=== PATIENT | female | born 1975 | race Caucasian/White ===

== ENCOUNTER 2016-08-15 17:37 | Emergency (ER) | payer BC, OTHER ==
[2016-08-15 17:51] VITALS: BP 103/69; PULSE 81; TEMP 98; BMI 22.6
--- NOTE | 2016-08-15 17:52 | PDOC ---
Rapid Medical Evaluation Chief Complaint: Allergic Reaction Time Seen by Provider: 08/15/16 17:48 Medical Evaluation: Allergies Allergy/AdvReac Type Severity Reaction Status Date / Time No Known Allergies Allergy Verified 08/15/16 17:46 08/15/16 17:48 41 yo F started taking a new med: Otezla for 4 days (psoriatic disorder) Day 1: 10mg Day 2: 10mg BID Day 3: 10mg am/20 mg pm Day 4: 20mg BID Pt noticed red rash to neck. Pt took benadryl 50mg at 0930hrs this morning. No SOB. PE: no wheezing/ CTAB
[2016-08-15] MEDS ORDERED: diphenhydrAMINE HCL 25 MG CAPSULE (FP) PO ONE ×2 (19:08→19:12)
--- NOTE | 2016-08-15 19:18 | PDOC ---
History of Present Illness - General Chief Complaint: Allergic Reaction Stated Complaint: ALLERGIC REACTION Time Seen by Provider: 08/15/16 17:48 History Source: Patient Exam Limitations: No Limitations - History of Present Illness Initial Comments: 08/15/16 19:19 Chief complaint: Pruritic rash under her chin midline to right side and slight rash to right side of face since yesterday History of present illness: Patient is a 41-year-old female with a history of psoriatic arthritis here today complaining of rash under her chin from midline towards the right side of his neck and small area on the right side of her face lower since yesterday. Patient to developing rash yesterday patient had applied Oil of Olay tinted lotion to her face and neck for the first time. Reports that she also had started on Otezla on 08/11/16 on the starter pack, this is her first time starting on this medication. Patient reports that she was on Remicade for many years prior to this. Patient also took Aleve on Monday morning had never taken Aleve before. Patient denies any difficulty breathing or swallowing. She denies any other new rash other than her psoriatic rash on her scalp and few areas on arms. Patient reports that today she took 50 mg of Benadryl at 9:30 this morning due to itchiness of rash. Patient reports that this helped. 08/15/16 19:48 Timing/Duration: getting worse (rash under chin midline to rt. side non raised pruritic , rt. lateral face rash non raised pruritic ) Severity: mild Associated Symptoms: reports: rash (rash under chin midline to rt. side non raised pruritic , rt. lateral face rash non raised pruritic ) Past History - Past Medical History Allergies/Adverse Reactions: Allergies Allergy/AdvReac Type Severity Reaction Status Date / Time No Known Allergies Allergy Verified 08/15/16 17:46 Home Medications: Ambulatory Orders Apremilast [Otezla] 30 mg PO ASDIR 08/15/16 Prednisone [Deltasone] 20 mg PO BID #8 tablet 08/15/16 Disorders: Yes (UTI) Suicide Attempt (Hx): No Other medical history: psoriasis( psoriatic arithritis) - Psycho/Social/Smoking Cessation Hx Anxiety: No Suicidal Ideation: No Smoking Status: No Smoking History: Never smoked Have you smoked in the past 12 months: No Number of Cigarettes Smoked Daily: 0 Information on smoking cessation initiated: No Hx Alcohol Use: No Drug/Substance Use Hx: No Substance Use Type: None Review of Systems - Review of Systems Able to Perform ROS?: Yes Constitutional: No: Symptoms Reported HEENTM: No: Symptoms Reported Respiratory: No: Symptoms reported Cardiac (ROS): No: Symptoms Reported ABD/GI: No: Symptoms Reported Integumentary: Yes: Pruritus, Rash (under chin midline to rt. side of neck, rt. lateral face non raised) *Physical Exam - Vital Signs Last Vital Signs Temp Pulse Resp BP Pulse Ox 98.0 F 81 18 103/69 100 08/15/16 17:46 08/15/16 17:46 08/15/16 17:46 08/15/16 17:46 08/15/16 17:46 - Physical Exam General Appearance: Yes: Appropriately Dressed HEENT: positive: Normal ENT Inspection Respiratory/Chest: positive: Lungs Clear, Normal Breath Sounds. negative: Chest Tender, Respiratory Distress Cardiovascular: positive: Regular Rhythm, Regular Rate, S1, S2 Integumentary: positive: Rash (non raised slightly erythematous rash non scaly from midline under chin to rt side of under chin, rt. lateral face). negative: Hives Neurologic: positive: Alert, Normal Response, Responsive Medical Decision Making - Medical Decision Making 08/15/16 19:48 08/15/16 19:48 Patient is a 41-year-old female with a history of psoriatic arthritis here today complaining of rash under her chin from midline towards the right side of his neck and small area on the right side of her face lower since yesterday. Patient to developing rash yesterday patient had applied Oil of Olay tinted lotion to her face and neck for the first time. Reports that she also had started on Otezla on 08/11/16 on the starter pack, this is her first time starting on this medication. Patient reports that she was on Remicade for many years prior to this. Patient also took Aleve on Monday morning had never taken Aleve before. Patient denies any difficulty breathing or swallowing. She denies any other new rash other than her psoriatic rash on her scalp and few areas on arms. Patient reports that today she took 50 mg of Benadryl at 9:30 this morning due to itchiness of rash. Patient reports that this helped. urticaria most probable due to application of Oil of Olay tinted lotion PLAN: urine HCG negative prednisone 40 mg po now then 20 mg bid for following 4 days zantac 150 mg po now than bid for following 4 days benadryl 25 mg po now than as directed by laundry presser *DC/Admit/Observation/Transfer Diagnosis at time of Disposition: Urticaria - Discharge Dispostion Disposition: HOME Condition at time of disposition: Stable - Patient Instructions Additional Instructions: Return to emergency room if any difficulty breathing or swallowing Follow-up with your primary care provider within the next few days Purchase over the counter zantac 150 mg take twice daily starting tomorrow for 4 days Take Benadryl as needed as directed by laundry presser for itchiness Patient Voiced understanding of discharge instructions and all questions were answered
[2016-08-15] MEDS ORDERED: RANITIDINE HCL 150 MG TABLET (FP) PO ONE (19:47)
[2016-08-15] MEDS ORDERED: predniSONE 20 MG TABLET (UD) PO ONE (19:47)
[2016-08-15] MEDS ORDERED: RANITIDINE HCL 150 MG TABLET (FP) ONE (19:52)
[2016-08-15] MEDS ORDERED: predniSONE 20 MG TABLET (UD) ONE (19:52)
== END 2016-08-15 19:59 | disposition home or self-care (01) ==
LOC: JERFT 17:37 → JER 17:37 → JERFT 19:59
DX: L23.2 Allergic contact dermatitis due to cosmetics (principal); L40.50 Arthropathic psoriasis, unspecified
CPT/HCPCS: 84703; 99281-25

== ENCOUNTER 2016-10-16 16:56 | Emergency (ER) | payer BC, OTHER ==
--- NOTE | 2016-10-16 17:01 | PDOC ---
History of Present Illness - General History Source: Patient Exam Limitations: No Limitations - History of Present Illness Initial Comments: 10/16/16 17:13 Patient is a 41-year-old female with a history of psoriatic arthritis, and UTIs , who presents to the ED with urination frequency, hematuria, pressure, and superpubic discomfort since today. She states she has is having similar symptoms to prior UTIs in the past. She denies back pain. She denies fever, chills, nausea, vomiting, diarrhea, constipation. <Sumanth Pearson - Last Filed: 10/16/16 17:13> <Shawn Devlin - Last Filed: 10/16/16 17:35> - General Chief Complaint: Urinary Problem Stated Complaint: URINARY SYMPTOMS Time Seen by Provider: 10/16/16 17:00 Past History <Sumanth Pearson - Last Filed: 10/16/16 17:13> - Past Medical History Disorders: Yes (UTI) Suicide Attempt (Hx): No - Psycho/Social/Smoking Cessation Hx Anxiety: No Suicidal Ideation: No Smoking Status: No Smoking History: Never smoked Have you smoked in the past 12 months: No Number of Cigarettes Smoked Daily: 0 Hx Alcohol Use: No Drug/Substance Use Hx: No Substance Use Type: None <Shawn Devlin - Last Filed: 10/16/16 17:35> - Past Medical History Allergies/Adverse Reactions: Allergies Allergy/AdvReac Type Severity Reaction Status Date / Time No Known Allergies Allergy Verified 10/16/16 16:58 Home Medications: Ambulatory Orders Apremilast [Otezla] 30 mg PO BID 08/15/16 Nitrofurantoin Monohyd/M-Cryst [Macrobid -] 100 mg PO BID #14 capsule 10/16/16 Phenazopyridine HCl [Pyridium] 200 mg PO TID #6 tablet 10/16/16 Review of Systems - Review of Systems Able to Perform ROS?: Yes Comments:: 10/16/16 17:13 GENERAL/CONSTITUTIONAL: No fever or chills. No weakness. HEAD, EYES, EARS, NOSE AND THROAT: No change in vision. No ear pain or discharge. No sore throat. CARDIOVASCULAR: No chest pain or shortness of breath. RESPIRATORY: No cough, wheezing, or hemoptysis. GASTROINTESTINAL: No nausea, vomiting, diarrhea or constipation. GENITOURINARY: + frequency, pressure, superpubic pain. MUSCULOSKELETAL: No joint or muscle swelling or pain. No neck or back pain. SKIN: No rash NEUROLOGIC: No headache, vertigo, loss of consciousness, or change in strength/ sensation. ENDOCRINE: No increased thirst. No abnormal weight change. HEMATOLOGIC/LYMPHATIC: No anemia, easy bleeding, or history of blood clots. ALLERGIC/IMMUNOLOGIC: No hives or skin allergy. <Sumanth Pearson - Last Filed: 10/16/16 17:13> *Physical Exam - Vital Signs Last Vital Signs Temp Pulse Resp BP Pulse Ox 98.8 F 78 18 103/65 100 10/16/16 16:57 10/16/16 16:57 10/16/16 16:57 10/16/16 16:57 10/16/16 16:57 - Physical Exam Comments: 10/16/16 17:14 GENERAL: Awake, alert, and fully oriented, in no acute distress HEAD: No signs of trauma EYES: PERRLA, EOMI, sclera anicteric, conjunctiva clear ENT: Auricles normal inspection, hearing grossly normal, nares patent, oropharynx clear without exudates. Moist mucosa NECK: Normal ROM, supple, no lymphadenopathy, JVD, or masses LUNGS: Breath sounds equal, clear to auscultation bilaterally. No wheezes, and no crackles HEART: Regular rate and rhythm, normal S1 and S2, no murmurs, rubs or gallops ABDOMEN: Soft, nontender, normoactive bowel sounds. No guarding, no rebound. No masses BACK: No CVA tenderness EXTREMITIES: Normal range of motion, no edema. No clubbing or cyanosis. No cords, erythema, or tenderness NEUROLOGICAL: Cranial nerves II through XII grossly intact. Normal speech, normal gait SKIN: Warm, Dry, normal turgor, no rashes or lesions noted. <Sumanth Pearson - Last Filed: 10/16/16 17:13> Progress Note - Progress Note Progress Note: It appears pt has a UTI, will place on Pyridium and Macrobid Pt is in agreement with plan Abdomen is benign on exam and vitals stable <Shawn Devlin - Last Filed: 10/16/16 17:35> *DC/Admit/Observation/Transfer - Attestations Scribe Attestion: 10/16/16 17:15 Documentation prepared by Sumanth Pearson, acting as medical record retrieval specialist for Shawn Devlin MD. <Sumanth Pearson - Last Filed: 10/16/16 17:13> - Discharge Dispostion Admit: No <Shawn Devlin - Last Filed: 10/16/16 17:35> Diagnosis at time of Disposition: Urinary tract infection Qualifiers: Urinary tract infection type: acute cystitis Hematuria presence: with hematuria Qualified Code(s): N30.01 - Acute cystitis with hematuria - Discharge Dispostion Disposition: HOME Condition at time of disposition: Stable - Patient Instructions Printed Discharge Instructions: DI for Urinary Tract Infection (UTI) Additional Instructions: Fluids, rest, Motrin Macrobid 100mg 2x/day for 7 days Pyridium 200mg 3x/day for 2 days as needed If worsen return to ER
[2016-10-16 17:09] VITALS: BP 103/65; PULSE 78; TEMP 98.8; BMI 21.7
[2016-10-16 17:24] LABS: URINE APPEARANCE HAZY; URINE BILIRUBIN Negative (NEGATIVE); URINE BLOOD 3+ (NEGATIVE); URINE COLOR PINK; URINE GLUCOSE (UA) Negative (NEGATIVE); URINE KETONE Negative (NEGATIVE); URINE LEUK ESTERASE Trace (NEGATIVE); URINE NITRITE Negative (NEGATIVE); URINE PROTEIN 2+ (NEGATIVE); URINE UROBILINOGEN 0.2 E.U/dl (0.2-1.0)
[2016-10-16 17:34] LABS: URINE RBC 20-40 /hpf (0-3)
[2016-10-16 17:35] LABS: URINE BACTERIA FEW /hpf (NEGATIVE)
[2016-10-16] MEDS ORDERED: PHENAZOPYRIDINE HCL 100 MG TABLET (FP) PO ONE (17:40)
[2016-10-16] MEDS ORDERED: NITROFURANTOIN MACROCRYSTAL 50 MG CAPSULE (FP) ONE (17:42)
[2016-10-16] MEDS ORDERED: PHENAZOPYRIDINE HCL 100 MG TABLET (FP) ONE (17:42)
[2016-10-16] MEDS ORDERED: NITROFURANTOIN MACROCRYSTAL 50 MG CAPSULE (FP) PO SCH (17:45)
== END 2016-10-16 17:45 | disposition home or self-care (01) ==
LOC: FER 16:56
DX: N30.11 Interstitial cystitis (chronic) with hematuria (principal); Z87.440 Personal history of urinary (tract) infections; L40.50 Arthropathic psoriasis, unspecified
CPT/HCPCS: 81003; 81015; 84703; 99282-25

== ENCOUNTER 2016-10-19 19:35 | Emergency (ER) | payer BC, OTHER ==
--- NOTE | 2016-10-19 19:43 | PDOC ---
[id number] is a 41 year old female (LMP: September 30) with a PMHx of recurrent UTIs who presents to the ED with urinary frequency and suprapubic pain today. The patient presented to the ED last week for the same symptoms and she was discharged with Macrobid for a UTI. She reports that the urgency and pain came back today. She reports associated minimal hematuria. She has been worked up by urologist and MEDICAL BILLING CODER in the past to figure out why she has recurrent UTIs, but everything was normal. She normally takes Cipro for her UTIs. She denies dysuria , fever, chills, nausea, vomiting, diarrhea. Denies FHx of kidney stones, gall stones. PAST MEDICAL HISTORY: recurrent UTIs PAST SURGICAL HISTORY: no significant history FAMILY HISTORY: no pertinent history SOCIAL HISTORY: Pt lives with family and is employed. MEDICATIONS: reviewed ALLERGIES: As per nursing notes Review of Systems: General: No fevers or chills, no weakness, no weight loss HEENT: No change in vision. No sore throat,. No ear pain CardioVascular: No chest pain or shortness of breath Respiratory: No cough, or wheezing. Gastrointestinal: no nausea, vomiting, diarrhea or constipation, No rectal bleeding Genitourinary: (+) urgency, suprapubic pain, hematuria. No dysuria or frequency Musculoskeletal: No joint or muscle pain or swelling Neurologic: No headache, vertigo, dizziness or loss of consciousness Psychiatric: No depression Skin: No rashes or easy bruising Endocrine: No increased thirst or abnormal weight change Allergic: No skin or latex allergy All other systems reviewed and normal BASIC EXAM: GENERAL: The patient is awake, alert, and fully oriented, in no acute distress. HEAD: Normal with no signs of trauma. EYES: Pupils equal, round and reactive to light, extraocular movements intact, sclera anicteric, conjunctiva clear. EXTREMITIES: Normal range of motion, no edema. NEUROLOGICAL: Normal speech, normal gait. PSYCH: Normal mood, normal affect. SKIN: Warm, Dry, normal turgor, no rashes or lesions noted. : mild suprapubic pain on palpation <Emily Brady - Last Filed: 10/19/16 21:11> - History of Present Illness Initial Comments: 10/19/16 19:44 Chief complaint: Dysuria History of present illness: Patient treated here on October 16 for presumed UTI with red cells and white cells in the urine. No urine culture was obtained. Macrodantin and Pyridium were prescribed. The patient improved while on the medication, finished the medication today, and her symptoms have recurred. She has dysuria and her urine is pink to reddish in color. No fever or chills. No back pain. On exam: No fever, no CVA tenderness, mild tenderness over the bladder without guarding or rebound. Urinalysis and urine culture. Further treatment depending on results. <Pedro Birmingham - Last Filed: 10/28/16 10:27> - General Chief Complaint: Urinary Problem Stated Complaint: CHRONIC UTI Time Seen by Provider: 10/19/16 19:41 Past History <Emily Brady - Last Filed: 10/19/16 21:11> - Past Medical History Disorders: Yes (UTI) Suicide Attempt (Hx): No - Psycho/Social/Smoking Cessation Hx Anxiety: No Suicidal Ideation: No Smoking Status: No Smoking History: Never smoked Have you smoked in the past 12 months: No Number of Cigarettes Smoked Daily: 0 Hx Alcohol Use: No Drug/Substance Use Hx: No Substance Use Type: None <Pedro Birmingham - Last Filed: 10/28/16 10:27> - Past Medical History Allergies/Adverse Reactions: Allergies Allergy/AdvReac Type Severity Reaction Status Date / Time No Known Allergies Allergy Verified 10/16/16 16:58 Home Medications: Ambulatory Orders Apremilast [Otezla] 30 mg PO BID 08/15/16 Nitrofurantoin Monohyd/M-Cryst [Macrobid -] 100 mg PO BID #14 capsule 10/16/16 Phenazopyridine HCl [Pyridium] 200 mg PO TID #6 tablet 10/16/16 Phenazopyridine HCl [Pyridium -] 100 mg PO ONCE #21 tablet 10/19/16 *Physical Exam - Vital Signs Last Vital Signs Temp Pulse Resp BP Pulse Ox 98.2 F 84 14 98/67 100 10/19/16 19:37 10/19/16 19:37 10/19/16 19:37 10/19/16 19:37 10/19/16 19:37 <Emily Brady - Last Filed: 10/19/16 21:11> ED Treatment Course - ADDITIONAL ORDERS Additional order review: Laboratory Results 10/19/16 19:43 Urine Color Yellow Urine Appearance Clear Urine pH 7.0 Ur Specific [place] <= 1.005 Urine Protein Negative Urine Glucose (UA) Negative Urine Ketones Negative Urine Blood 3+ H Urine Nitrite Negative Urine Bilirubin Negative Urine Urobilinogen 0.2 e.u/dl Ur Leukocyte Esterase Negative Urine RBC 2-5 Urine WBC 0-2 Ur Epithelial Cells Few Urine Bacteria Few <Emily Brady - Last Filed: 10/19/16 21:11> Progress Note - Progress Note Progress Note: Patient treated for UTI symptoms, finished a course of Macrodantin, symptoms persist. Urinalysis shows no sign of infection. Culture less than 10,000 colonies. The patient's symptoms are likely due to vaginitis. She is referred to her [facility] [employer] physician for further evaluation and treatment. In no distress, with no fever or back pain upon discharged to follow-up as directed <Pedro Birmingham - Last Filed: 10/28/16 10:27> *DC/Admit/Observation/Transfer - Attestations Scribe Attestion: 10/19/16 21:11 Documentation prepared by Emily Brady, acting as medical supply technician for Ale Mendieta MD. <Emily Brady - Last Filed: 10/19/16 21:11> <Pedro Birmingham - Last Filed: 10/28/16 10:27> Diagnosis at time of Disposition: Dysuria - Discharge Dispostion Disposition: HOME Condition at time of disposition: Good - Prescriptions Prescriptions: Phenazopyridine HCl [Pyridium -] 100 mg PO ONCE #21 tablet - Referrals Referrals: Jj Francisco MD [Primary Care Provider] - - Patient Instructions Additional Instructions: You can continue the Pyridium 1 tablet as often as 3 times a day if needed for the discomfort. Follow-up with your primary care doctor or a urologist this week or early next week. Return to the emergency department immediately with ANY new, persistent or worsening symptoms. Continue any medications as previously prescribed by your physician. You should follow up with your primary doctor as soon as possible regarding today's emergency department visit. . Please make sure your doctor reviews the results of your emergency evaluation. Thank you for coming to the Emergency Department today for your care. It was a pleasure to see you today. Please note that your evaluation is INCOMPLETE until you follow-up with your doctor.
[2016-10-19 19:47] VITALS: BP 98/67; PULSE 84; TEMP 98.2; BMI 21.6
[2016-10-19 19:53] LABS: URINE APPEARANCE Clear; URINE BILIRUBIN Negative (NEGATIVE); URINE GLUCOSE (UA) Negative (NEGATIVE); URINE KETONE Negative (NEGATIVE); URINE LEUK ESTERASE Negative (NEGATIVE); URINE NITRITE Negative (NEGATIVE); URINE PROTEIN Negative (NEGATIVE); URINE UROBILINOGEN 0.2 E.U/dl (0.2-1.0)
[2016-10-19 19:55] LABS: URINE BLOOD 3+ (NEGATIVE); URINE COLOR YELLOW
[2016-10-19 20:09] LABS: URINE BACTERIA FEW /hpf (NEGATIVE); URINE WBC 0-2 (3-5)
--- NOTE | 2016-10-19 21:27 | PDOC ---
*Physical Exam - Vital Signs Last Vital Signs Temp Pulse Resp BP Pulse Ox 98.2 F 84 14 98/67 100 10/19/16 19:37 10/19/16 19:37 10/19/16 19:37 10/19/16 19:37 10/19/16 19:37 ED Treatment Course - ADDITIONAL ORDERS Additional order review: Laboratory Results 10/19/16 19:43 Urine Color Yellow Urine Appearance Clear Urine pH 7.0 Ur Specific [place] <= 1.005 Urine Protein Negative Urine Glucose (UA) Negative Urine Ketones Negative Urine Blood 3+ H Urine Nitrite Negative Urine Bilirubin Negative Urine Urobilinogen 0.2 e.u/dl Ur Leukocyte Esterase Negative Urine RBC 2-5 Urine WBC 0-2 Ur Epithelial Cells Few Urine Bacteria Few - RADIOLOGY Radiology Studies Ordered: Category Date Time Status KIDNEY / RENAL US [US] Stat Ultrasound 10/19/16 20:15 Ordered Progress Note - Progress Note Progress Note: Care of this patient was signed out to me from Dr. Taveras at 8 PM. Patient is a 41-year-old female who comes in complaining of discomfort with urination. Patient was recently treated for urinary tract infection with Macrobid and postop in the Macrobid her symptoms have returned. Patient was noted to have some blood in her urine here in the emergency room however there was no white cells or bacteria seen. Patient also had an ultrasound done of the kidneys she and bladder that was negative for any hydronephrosis or bladder pathology. Patient was given a copy of her blood work Patient was instructed to follow up with her primary care doctor or a urologist if symptoms persisted and in the meantime she can take Pyridium for the discomfort. *DC/Admit/Observation/Transfer Diagnosis at time of Disposition: Dysuria - Discharge Dispostion Disposition: HOME Condition at time of disposition: Good Admit: No - Referrals Referrals: Jj Francisco MD [Primary Care Provider] - - Patient Instructions Additional Instructions: You can continue the Pyridium 1 tablet as often as 3 times a day if needed for the discomfort. Follow-up with your primary care doctor or a urologist this week or early next week. Return to the emergency department immediately with ANY new, persistent or worsening symptoms. Continue any medications as previously prescribed by your physician. You should follow up with your primary doctor as soon as possible regarding today's emergency department visit. . Please make sure your doctor reviews the results of your emergency evaluation. Thank you for coming to the Emergency Department today for your care. It was a pleasure to see you today. Please note that your evaluation is INCOMPLETE until you follow-up with your doctor. - Post Discharge Activity
[2016-10-19] MEDS ORDERED: PHENAZOPYRIDINE HCL 100 MG TABLET (FP) ONE (21:45)
[2016-10-19] MEDS ORDERED: PHENAZOPYRIDINE HCL 100 MG TABLET (FP) PO ONE (21:48)
== END 2016-10-19 21:36 | disposition home or self-care (01) ==
LOC: FER 19:35
DX: R30.0 Dysuria (principal); Z87.440 Personal history of urinary (tract) infections
CPT/HCPCS: 76775-TC; 81003; 81015; 87086; 99283-25

== ENCOUNTER → 2017-01-02 | Day surgery (SDC) | payer BC, OTHER ==
--- NOTE | 2017-01-04 11:34 | PATH ---
Surgical Pathology Report Patient Name: KELVIN VARGAS [facility]. Rec. #: [id number] /Age/Gender: 1975 (Age: 41) / F Account: [id number] Location: Taken: 01/02/2017 Received: 01/02/2017 Reported: 01/04/2017 Physicians: Irlanda Prado M.D. Heriberot Sweeney M.D. Specimen(s) Received LEFT BREAST CORE BIOPSY 200 5 CM+N Clinical History Ultrasound findings: Highly suspicious/malignant 1.7 cm mass left breast Final Diagnosis BREAST, LEFT, 2:00, 5 CM F., CORE BIOPSY: INVASIVE DUCTAL CARCINOMA, POORLY DIFFERENTIATED WITH PROMINENT ASSOCIATED LYMPHOCYTIC INFILTRATE (TUMOR-INFILTRATING LYMPHOCYTES : > 60%). THE CARCINOMA MEASURES 6 MM IN GREATEST DIMENSION THIS MATERIAL. Results of ER, MI, Her-2, Ki67 studies will be reported separately in an addendum. Electronically Signed Renea Dewey M.D. Addendum Reported: 01/05/2017 Addendum Diagnosis Results of ER and MI studies performed at [facility] are as follows: ER (clone [id number] mouse monoclonal antibody by [employer]): > 90 % nuclear staining with strong intensity (Positive). MI (clone16 mouse monoclonal antibody by [employer]) : > 90 % nuclear staining with strong intensity (Positive). Results of Her2 (IHC) & Ki-67 studies performed at [place], [place] ([id number]) are as follows: Her2 IHC (EP3 from [employer], formerly known as [id number], using [employer] Polymer Refine detection kit): 0 (Negative). Ki-67: ~70% (High proliferative index). Positive and negative controls (internal if applicable) show appropriate results. Formalin fixation and cold ischemic times are within current ASCO/CAP recommendations for ER, MI and Her2 testing. Renea Dewey M.D. Gross Description Received in formalin labeled "left breast biopsy 2:00, 5 cmfn," are 8 coto-yellow, cylindrical portions of fibroadipose tissue ranging from 0.3-1.0 cm in length and averaging 0.1 cm in diameter. The specimens are submitted in toto in one cassette. Time to formalin fixation: 2 minutes Total formalin fixation time: Approximately 27 hours. DL/01/03/2017 [facility]/01/03/2017
== END | disposition home or self-care (01) ==
LOC: FRADUS-SUR 13:23
PROVIDERS: ATTEND Surgery
PROC: 0HBU3ZX Excision of Left Breast, Percutaneous Approach, Diagnostic (ICD-10-PCS; principal; 2017-01-02)
DX: C50.412 Malignant neoplasm of upper-outer quadrant of left female breast (principal); N63 Unspecified lump in breast
CPT/HCPCS: 19083; 87899; 88305-TC; 88342-TC; A4648; G0206-TC

== ENCOUNTER 2017-02-02 08:05 | Day surgery (SDC) | payer BC, OTHER ==
--- NOTE | 2017-01-24 09:51 | HP ---
Admitting History and Physical - Primary Care Physician PCP: Jimbo Santiago - Admission Chief Complaint: Left breast cancer History of Present Illness: 42 year old premenapausal female who felt a lump in her left breast upper outer quadrant on self exam 12/2016. mammogram showed spiculated 1.5 cm mass and US showed 2:00 5 cm N 1.2x1.1x1.6 cm mass. There was also a 3.4 mm right breast mass at 10:00 6 month follow up advised. US core bx left breast 2: 00 invasive ductal carcinoma. MRI showed localized left breast cancer without suspicious adenopathy. History Source: Patient Limitations to Obtaining History: No Limitations - Smoking History Smoking history: Never smoked Have you smoked in the past 12 months: No Aproximately how many cigarettes per day: 0 - Alcohol/Substance Use Hx Alcohol Use: No Home Medications - Allergies Allergies/Adverse Reactions: Allergies Allergy/AdvReac Type Severity Reaction Status Date / Time No Known Allergies Allergy Verified 10/16/16 16:58 - Home Medications Home Medications: Ambulatory Orders Apremilast [Otezla] 30 mg PO BID 08/15/16 Nitrofurantoin Monohyd/M-Cryst [Macrobid -] 100 mg PO BID #14 capsule 10/16/16 Phenazopyridine HCl [Pyridium] 200 mg PO TID #6 tablet 10/16/16 Phenazopyridine HCl [Pyridium -] 100 mg PO ONCE #21 tablet 10/19/16
--- NOTE | 2017-01-24 11:06 | HP ---
Admitting History and Physical - Primary Care Physician PCP: Jimbo Santiago - Admission Chief Complaint: Left breast cancer History of Present Illness: 42 year old premenapausal female who noted left breast mass upper outer quadrant 11/2016. Mammogram 12/2016 showed irregular spiculated mass left upper outer quadrant 1.5 cm. US showed 2:00 left breast mass 1.2x1.1x1.6cm there was also a right breast mass 3.4 mm that radiologist advised 6 month follow up. 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 Breast MRI showed left breast localized cancer no mutifocal or contralateral disease. History Source: Patient Limitations to Obtaining History: No Limitations - Past Medical History Musculoskeletal: Yes: Osteoarthritis Dermatology: Yes: Psoriasis (arthritis) - Smoking History Smoking history: Never smoked Have you smoked in the past 12 months: No Aproximately how many cigarettes per day: 0 - Alcohol/Substance Use Hx Alcohol Use: No Home Medications - Allergies Allergies/Adverse Reactions: Allergies Allergy/AdvReac Type Severity Reaction Status Date / Time No Known Allergies Allergy Verified 10/16/16 16:58 - Home Medications Home Medications: Ambulatory Orders Apremilast [Otezla] 30 mg PO BID 08/15/16 Nitrofurantoin Monohyd/M-Cryst [Macrobid -] 100 mg PO BID #14 capsule 10/16/16 Phenazopyridine HCl [Pyridium] 200 mg PO TID #6 tablet 10/16/16 Phenazopyridine HCl [Pyridium -] 100 mg PO ONCE #21 tablet 10/19/16 Family Disease History - Family Disease History Family Disease History: CA: Grandparent (breast ca 50's?), Mother (breast ca 50) Physical Examination Constitutional: Yes: Well Nourished, No Distress Breast(s): Yes: Other ( ptotic B cups with noskin changes on palpation she has some thickening towards upper outer quadrant left breast. right breast negative no palpable adnopathy bilaterallty) Problem List - Problems (1) Breast cancer, left Code(s): C50.912 - MALIGNANT NEOPLASM OF UNSPECIFIED SITE OF LEFT FEMALE BREAST Qualifiers: Breast location: upper outer quadrant of breast Patient sex: female Assessment/Plan Left breast wide excision, mammogram needle localization ,lymphoscintogram, sentenel node biopsy, posssible axillary node dissection
[2017-01-31 14:08] VITALS: BMI 20.5
[2017-02-02] MEDS ORDERED: MIDAZOLAM HCL 2 MG/2 ML SINGLE DOSE VIAL ONE ×2 (13:09→13:40)
[2017-02-02] MEDS ORDERED: LIDOCAINE 1%/EPI 1:100000 (20 ML MULTI DOSE VIAL) ONE (13:15)
[2017-02-02] MEDS ORDERED: ISOSULFAN BLUE 10 MG/ML VIAL SQ ONE (13:15)
[2017-02-02] MEDS ORDERED: ONDANSETRON 4 MG/2 ML VIAL IVPB PRN (13:17)
[2017-02-02] MEDS ORDERED: KETOROLAC TROMETHAMINE 30 MG/1 ML VIAL IVPUSH PRN (13:17)
[2017-02-02] MEDS ORDERED: LIDOCAINE HCL 1%, 10 MG/ML (20ML VIAL) ONE (13:19)
[2017-02-02] MEDS ORDERED: DEXTROSE 5%-0.45% SALINE 1,000 ML IV SCH (13:30)
[2017-02-02] MEDS ORDERED: ceFAZolin SODIUM 1 GM VIAL ONE (13:42)
[2017-02-02] MEDS ORDERED: BUPIVACAINE HCL/PF 2.5 MG/ML - 30 ML VIAL IJ ONE (13:49)
[2017-02-02] MEDS ORDERED: LIDOCAINE HCL 1%, 10 MG/ML (50 mL VIAL) IJ ONE (13:57)
[2017-02-02] MEDS ORDERED: PROPOFOL 20 ML ONE ×2 (14:07)
[2017-02-02] MEDS ORDERED: BUPIVACAINE HCL/PF 0.25% (2.5MG/ML) 10 ML VIAL IJ ONE (14:57)
--- NOTE | 2017-02-02 16:48 | OP ---
DATE OF OPERATION: 02/02/2017 PREOPERATIVE DIAGNOSIS: Left breast cancer, upper outer quadrant. POSTOPERATIVE DIAGNOSIS: Left breast cancer, upper outer quadrant. PROCEDURE: Left breast partial mastectomy with mammographic needle localization and left axillary sentinel lymph node biopsy with partial tissue transfer closure 3 x 4 cm. PRIMARY SURGEON: Jimbo Santiago MD DATA COMMUNICATIONS ENGINEER: CAITLIN Ruiz COMPLICATIONS: None. ANESTHESIA: Local with IV sedation. Briefly, the patient is a 42-year-old, G2, P2, premenopausal female of descent. She noted a left breast mass in the upper outer quadrant and underwent mammography and ultrasound showing a 1.5-cm spiculated mass on mammography and a 1.2 x 1.6 cm mass on ultrasound in the 2 o'clock region 5 cm from the nipple. Core biopsy showed a poorly-differentiated invasive duct cancer which was ER/MS positive, HER2/shelly negative with a Ki-67 of 70%. An MRI showed localized cancer measuring 1.3 cm. The patient was advised at undergoing a wide excision with needle localization and sentinel lymph node biopsy. The patient was brought in for the procedure on February 02, 2017, and underwent mammographic needle localization at [facility] with a lymphoscintigraphy and then was brought to the [place] [facility]. In the holding area, site verification was made, and informed consent was obtained. DESCRIPTION OF PROCEDURE: She was brought into the operating room and laid on the OR table in the supine position. Venodynes were placed on the lower extremities. She received a gram of Ancef prior to incision. 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 The left breast was sterilely prepped and draped in the usual fashion with the wire prepped in the field. Next, 3 mL of Lymphazurin blue were injected intradermally peritumorally around the needle localization site. An incision was made just below the hair-bearing area of the left axilla. Dissection was undertaken, and a blue lymphatic was easily seen, coursing to a blue, hot lymph node. The node was removed, and 10-second gamma count was around 75,000. The node was sent to Pathology for permanent section in formalin. There were no other blue or hot nodes, and background count was about 1600 after removal of this node. Hemostasis was achieved, and the axillary wound was closed using interrupted 2-0 plain suture, then interrupted 3-0 deep dermal Vicryl suture and a running 4-0 subcuticular Biosyn suture. At this point, the wide excision was undertaken in the upper outer aspect of the left breast. Incision was made, and dissection was undertaken around the needle localization site. The specimen was completely removed from around the surrounding tissue, all the way down to the pectoralis major muscle. Specimen was oriented with a long lateral/short superior suture, and specimen radiographs showed removal of the clip in question. Hemostasis was achieved. Separate margins were then taken on the superior, inferior, medial, lateral, deep, and anterior margins with a suture marking the biopsy cavity side. All specimens were placed in formalin and sent to Pathology as specimen. At this point, hemostasis was achieved, and a 4 x 3 cm tissue transfer closure was accomplished by undermining the breast tissue and reapproximating the tissue with 2-0 plain suture. The skin was then closed using interrupted 3-0 deep dermal Vicryl suture and a running 4-0 subcuticular Biosyn suture. Mastisol and Steri-Strips were applied over the wound with a compressive dressing placed over this. She was placed in a surgical bra postoperatively. Patient was awake and alert at the end of the procedure and brought back to Ambulatory Surgery postoperatively. The patient will be discharged home the same day once discharge criteria are met. All sponge and needle counts were correct at the need of the case, and estimated blood loss was about 20 mL. The patient will follow up in the office in 1 week for a formal wound and pathology check. Gus [id number]
[2017-02-02 17:48] VITALS: BP 106/56; PULSE 71; TEMP 97.9
--- NOTE | 2017-02-10 10:07 | PATH ---
Surgical Pathology Report Patient Name: KELVIN VARGAS [facility]. Rec. #: [id number] /Age/Gender: 1975 (Age: 42) / F Account: [id number] Location: [facility] Taken: 02/02/2017 Received: 02/02/2017 Reported: 02/10/2017 Physicians: Jimbo Santiago M.D. Specimen(s) Received A: LEFT AXILLARY SENTINEL LYMPH NODE #1 B: LEFT BREAST WIDE EXCISION C: LEFT BREAST LATERAL MARGIN D: LEFT BREAST INFERIOR MARGIN E: LEFT BREAST MEDIAL MARGIN F: LEFT BREAST SUPERIOR MARGIN G: LEFT BREAST DEEP MARGIN H: LEFT BREAST ANTERIOR MARGIN Clinical History Left upper outer quadrant invasive cancer Final Diagnosis A. LYMPH NODE, LEFT AXILLARY SENTINEL #1, EXCISION: ONE LYMPH NODE, NEGATIVE FOR METASTATIC CARCINOMA (0/1). B. BREAST, LEFT, WIDE EXCISION: INVASIVE DUCTAL CARCINOMA, POORLY DIFFERENTIATED (TUBULE SCORE: 3/3, NUCLEAR GRADE: 3/3, MITOTIC SCORE: 3/3; TOTAL RAFAEL SCORE: 9/9), WITH PROMINENT ASSOCIATED LYMPHOCYTIC INFILTRATE (> 60%). DUCTAL CARCINOMA IN SITU (DCIS), SOLID TYPE, HIGH NUCLEAR GRADE, PRESENT ADMIXED WITH INVASIVE CARCINOMA AND FOCALLY AWAY FROM IT. INVASIVE CARCINOMA EXTENDS TO THE ANTERIOR MARGIN AND IS AT 1.5 MM FROM THE INFERIOR MARGIN; DCIS IS CLOSE TO (< 1MM) THE ANTERIOR MARGIN. SEE SPECIMENS C-H FOR FINAL MARGINS. NO LYMPHOVASCULAR INVASION IS IDENTIFIED. PRIOR BIOPSY SITE CHANGES ARE PRESENT. PATHOLOGIC STAGE (pTNM): pT1c pN0. SEE ALSO INVASIVE CARCINOMA CASE SUMMARY BELOW. C. BREAST, LEFT, LATERAL MARGIN, EXCISION: DCIS, HIGH NUCLEAR GRADE, PRESENT AT 1 MM FROM THE CLOSEST NEW MARGIN. (SEE NOTE) Myoepithelial immunohistochemical markers (SMM-HC & p63, performed at [facility]) demonstrate the presence of myoepithelial cells in the foci of DCIS with crush artifact. This finding supports the diagnosis. D. BREAST, LEFT, INFERIOR MARGIN, EXCISION: BENIGN BREAST TISSUE. E. BREAST, LEFT, MEDIAL MARGIN, EXCISION: BENIGN BREAST TISSUE. F. BREAST, LEFT, SUPERIOR MARGIN, EXCISION: BENIGN BREAST TISSUE. G. BREAST, LEFT, DEEP MARGIN, EXCISION: BENIGN BREAST TISSUE. H. BREAST, LEFT, ANTERIOR MARGIN, EXCISION: DCIS, HIGH NUCLEAR GRADE, PRESENT AT 2 MM FROM THE CLOSEST NEW MARGIN. Comments Breast Invasive Carcinoma: Surgical Pathology Cancer Case Summary Based on AJCC/UICC TNM, 7th edition Procedure _X_ Excision with image-guided localization Lymph Node Sampling _X_ Flora lymph node(s) Specimen LateralityRight _X_ Left Tumor Size: Size of Largest Invasive Carcinoma: 1.4 cm Tumor Focality _X_ Single focus of invasive carcinoma Macroscopic and Microscopic Extent of Tumor Nipple _X_ Not applicable (excisions less than total mastectomy) Ductal Carcinoma In Situ (DCIS) _X_ DCIS is present _X_ as a minor component (< 25% of tumor) Histologic Type of Invasive Carcinoma : _X_ Invasive carcinoma of no special type (ductal, not otherwise specified) with prominent associated lymphocytic infiltrate Histologic Grade: (Rafael Histologic Score) Tubular Differentiation _X_ Score 3 Nuclear Pleomorphism _X_ Score 3 Mitotic Rate _X_ Score 3 Overall Grade _X_ Grade 3: scores of 8 or 9 (poorly differentiated) Margins _X_ Margins uninvolved by invasive carcinoma Distance from closest margin: invasive carcinoma extends to the anterior margin in wide excision B. Final anterior margin H is negative for invasive carcinoma. _X_ Margins uninvolved by DCIS Distance from closest margin: 1 mm from final lateral margin C. Lymph-Vascular Invasion _X_ Not identified Lymph Nodes Total number of lymph nodes examined (sentinel and nonsentinel): 1 Number of sentinel lymph nodes examined: 1 Number of lymph nodes with macrometastases ( > 2 mm): 0 Number of lymph nodes with micrometastases (>0.2 mm to 2 mm and/or >200cells):0 Number of lymph nodes with isolated tumor cells (=0.2 mm and =200 cells): 0 Extranodal Extension _X_ Not applicable Pathologic Staging (pTNM) Primary Tumor (Invasive Carcinoma): pT1c Regional Lymph Nodes (pN): pN0(sn) Biomarker Studies Results of ER and WI studies performed on prior biopsy ( ) at [facility] are as follows: ER (clone [id number] mouse monoclonal antibody by [employer]): > 90 % nuclear staining with strong intensity (Positive). WI (clone16 mouse monoclonal antibody by [employer]) : > 90 % nuclear staining with strong intensity (Positive). Results of Her2 (IHC) & Ki-67 studies performed on prior biopsy ( [id number]) at [place], [place] ( [id number] ) are as follows: Her2 IHC (EP3 from [employer], formerly known as [id number], using [employer] Polymer Refine detection kit): 0 (Negative). Ki67: ~70% (High). Electronically Signed Renea Dewey M.D. Gross Description A. Received in formalin labeled "left axillary sentinel lymph node #1," is a 1.4 x 1.3 x 0.8 cm coto-blue, irregular lymph node. The specimen is trisected and entirely submitted in one cassette. B. Received in formalin, labeled "left breast wide excision," is a 4.9 x 4.2 x 2.6 cm. coto-yellow, irregular, portion of fibroadipose tissue with a needle localization wire present. There is a short suture marking the superior aspect and a long suture marking the lateral aspect, per the surgeon. There is no skin present. The specimen is inked as follows: superior and lateral blue; inferior green; medial yellow; anterior red; deep black. The specimen is serially sectioned from medial to lateral. Sectioning reveals a 1.4 x 1.0 x 0.8 cm coto, firm, ill-defined mass abutting the anterior margin. The mass is at 0.6 cm from the inferior margin. The remaining margins appear clear of the mass. Economics Professor sections are submitted in 7 cassettes as follows: 1-full-face section of mass with anterior and deep margins; [id number] sections of mass with anterior and deep margins; 4-inferior margin; 5-superior margin; 6-medial margin; 7-lateral margin. Time to formalin fixation: 24 minutes Total formalin fixation time: Approximately 27 hours. C. Received in formalin labeled "left breast lateral margin," is a 2.7 x 1.9 x 0.7 cm irregular portion of fibroadipose tissue with a suture marking the biopsy cavity side, per the surgeon. The new margin is inked green and the specimen is serially sectioned. The specimen is entirely submitted in 3 cassettes. D. Received in formalin labeled "left breast inferior margin," is a 2.2 x 1.8 x 0.5 cm irregular portion of fibroadipose tissue with a suture marking the biopsy cavity side, per the surgeon. The new margin is inked green and the specimen is serially sectioned. The specimen is entirely submitted in 2 cassettes. E. Received in formalin labeled "left breast medial margin," is a 1.4 x 1.3 x 0.4 cm irregular portion of fibroadipose tissue with a suture marking the biopsy cavity side, per the surgeon. The margin is inked green and the specimen is serially sectioned. The specimen is entirely submitted in one cassette. F. Received in formalin labeled "left breast superior margin," is a 2.3 x 2.0 x 0.8 cm irregular portion of fibroadipose tissue with a suture marking the biopsy cavity side, per the surgeon. The new margin is inked in green and the specimen is serially sectioned. The specimen is entirely submitted in 3 cassettes. G. Received in formalin labeled "left breast deep margin," is a 2.5 x 1.6 x 0.9 cm irregular portion of fibroadipose tissue with a suture marking the biopsy cavity side, per the surgeon. The new margin is inked green and the specimen is serially sectioned. The specimen is entirely submitted in 2 cassettes. H. Received in formalin labeled "left breast anterior margin," is a 1.8 x 1.7 x 0.5 cm irregular portion of fibroadipose tissue with a suture marking the biopsy cavity side, per the surgeon. The new margin is inked green and the specimen is serially sectioned. The specimen is entirely submitted in 2 cassettes. 02/03/2017 [facility]02/03/2017
== END 2017-02-02 17:40 | disposition home or self-care (01) ==
LOC: FASU 08:05
PROVIDERS: ATTEND Surgery Surgical Oncology
PROC: 0JX60ZC Transfer Chest Subcutaneous Tissue and Fascia with Skin, Subcutaneous Tissue and Fascia, Open Approach (ICD-10-PCS; 2017-02-02)
PROC: 0HBU0ZZ Excision of Left Breast, Open Approach (ICD-10-PCS; principal; 2017-02-02 13:31)
PROC: 07B60ZX Excision of Left Axillary Lymphatic, Open Approach, Diagnostic (ICD-10-PCS; 2017-02-02 13:31)
DX: C50.412 Malignant neoplasm of upper-outer quadrant of left female breast (principal)
CPT/HCPCS: 19281; 78195-TC; 84703; 88307-TC; 88341-TC; 88342-TC; A9541

== ENCOUNTER 2017-02-16 10:46 | Day surgery (SDC) | payer BC, OTHER ==
--- NOTE | 2017-02-15 10:41 | HP ---
Admitting History and Physical - Primary Care Physician PCP: Jimbo Santiago - Admission Chief Complaint: left breast cancer History of Present Illness: 42 yo females s/p left breast WE with snbx (invasive ductal, negative node 2016), was noted to have a positive lateral margin on final path. Patient is now to undergo reexcision of lateral margin. History Source: Patient Limitations to Obtaining History: No Limitations - Past Medical History ...LMP: 01/10/17 Musculoskeletal: Yes: Osteoarthritis Dermatology: Yes: Psoriasis (arthritis) - Past Surgical History Additional Past Surgical History: left breast WE with snbx (02/02/2017) - Smoking History Smoking history: Never smoked Have you smoked in the past 12 months: No Aproximately how many cigarettes per day: 0 - Alcohol/Substance Use Hx Alcohol Use: No Home Medications - Allergies Allergies/Adverse Reactions: Allergies Allergy/AdvReac Type Severity Reaction Status Date / Time No Known Allergies Allergy Verified 01/31/17 14:01 - Home Medications Home Medications: Ambulatory Orders Oxycodone HCl/Acetaminophen [Percocet 5-325 mg Tablet] 1 - 2 tab PO Q6H PRN #30 tab MDD 6 02/02/17 Family Disease History - Family Disease History Family Disease History: CA: Grandparent (breast ca 50's?), Mother (breast ca 50) Review of Systems - Review of Systems Constitutional: reports: No Symptoms Cardiovascular: reports: No Symptoms Respiratory: reports: No Symptoms Physical Examination Constitutional: Yes: Well Nourished Breast(s): Yes: Other (Left breast well healed incision without erythema or discharge noted.) Problem List - Problems (1) Breast cancer, left Code(s): C50.912 - MALIGNANT NEOPLASM OF UNSPECIFIED SITE OF LEFT FEMALE BREAST Assessment/Plan Plan: Reexcision of left breast positive margin
[2017-02-15 11:02] VITALS: BMI 20.5
[2017-02-16] MEDS ORDERED: oxyCODONE HCL 10 MG SUSTAINED ACTING TABLET PO ONE (11:00)
[2017-02-16] MEDS ORDERED: LIDOCAINE HCL 1%, 10 MG/ML (20ML VIAL) ONE (13:01)
[2017-02-16] MEDS ORDERED: oxyCODONE HCL 5 MG TABLET PO PRN ×2 (13:34)
[2017-02-16] MEDS ORDERED: ONDANSETRON 4 MG/2 ML VIAL IVPUSH PRN (13:34)
[2017-02-16] MEDS ORDERED: LACTATED RINGERS SOLUTION 1,000 ML IV SCH (13:45)
[2017-02-16] MEDS ORDERED: KETOROLAC TROMETHAMINE 30 MG/1 ML VIAL IVPUSH PRN (14:27)
[2017-02-16] MEDS ORDERED: ONDANSETRON 4 MG/2 ML VIAL IVPB PRN (14:27)
[2017-02-16] MEDS ORDERED: DEXTROSE 5%-0.45% SALINE 1,000 ML IV SCH (14:30)
--- NOTE | 2017-02-16 14:46 | OP ---
DATE OF OPERATION: 02/16/2017 PREOPERATIVE DIAGNOSIS: Left breast cancer upper outer quadrant. POSTOPERATIVE DIAGNOSIS: Left breast cancer upper outer quadrant. PROCEDURE: Left breast reexcision for margins. ANESTHESIA: Local with intravenous sedation. SURGEON: Dewayne Santiago MD JOB CHANGE CREW MEMBER: CAITLIN Garduno COMPLICATIONS: None. INDICATIONS: Briefly, the patient is a 42-year-old G2, P2, premenopausal female with a family history with her mother who had breast cancer at age 55. Her maternal grandmother also had breast cancer. Her maternal grandfather had colon cancer and a maternal great aunt had breast cancer. The patient was found to have a mass in the upper outer aspect of the left breast and mammography and ultrasound showed a suspicious 1.2 x 1.1 x 1.6-cm mass. Ultrasound for core biopsy showed a poorly differentiated invasive ductal cancer, which was ER/MO positive, HER-2 negative, with a Ki-67 of 70%. We performed a left breast partial mastectomy on February 02, 2017, with a sentinel lymph node biopsy and she had a negative sentinel node and a 1.4-cm poorly differentiated cancer. She did have some VCIS 1-mm from the lateral margin and 2-mm from the anterior margin. Re-excision was recommended. DESCRIPTION OF THE PROCEDURE: The patient comes in now and was brought into Ambulatory Surgery on February 16, 2017. In the holding area, site verification was made and informed consent was obtained. She was brought into the operating room and laid down on the operating room table in the supine position. Venodyne were placed on the lower extremities. She received a gram of Ancef prior to incision. She was given intravenous sedation and the left breast was sterilely prepped and draped in the usual fashion. Lidocaine 1% was given directly over the previous periareolar incision and then the periareolar incision was opened and the previous excisional cavity was entered. A further margin was then taken on the lateral aspect completely excising this using electrocautery. A suture was used to marj the biopsy cavity side and it was sent to Pathology as lateral margin. A separate anterior margin was then taken and anterior tissue was removed again using electrocautery. The specimen was oriented with a marking suture marking the biopsy cavity side. This was sent separately to Pathology with the anterior margin in formalin. Hemostasis was achieved. The breast parenchyma was then reapproximated using 2-0 plain suture. The skin was closed using interrupted 3-0 deep dermal Vicryl suture and a running 4-0 subcuticular Biosyn suture. Mastisol and Steri-Strips were applied over the wound with a compressive dressing placed over this. The patient tolerated the procedure well without difficulty. She was awakened and alert at the end of the procedure. Estimated blood loss was minimal. All sponge and needle counts are correct at the end of the case. The patient should follow up in the office in 1 week to perform wound pathology check. She will be discharged home the same day once discharge criteria are met. DEWAYNE SANTIAGO M.D. [id number]
[2017-02-16] MEDS ORDERED: oxyCODONE HCL 5 MG TABLET ONE (14:54)
[2017-02-16 18:06] VITALS: BP 106/78; PULSE 85; TEMP 98
--- NOTE | 2017-02-21 16:58 | PATH ---
Surgical Pathology Report Patient Name: KEVLIN VARGAS [facility]. Rec. #: [id number] /Age/Gender: 1975 (Age: 42) / F Account: [id number] Location: [facility] Taken: 02/16/2017 Received: 02/16/2017 Reported: 02/21/2017 Physicians: Jimbo Santiago M.D. Specimen(s) Received A: LATERAL MARGIN LEFT BREAST B: ANTERIOR MARGIN LEFT BREAST Clinical History Re-excision for margins Final Diagnosis A. BREAST, LEFT, LATERAL MARGIN, RE-EXCISION: BENIGN BREAST TISSUE SHOWING PRIOR BIOPSY SITE CHANGES. NO RESIDUAL DUCTAL CARCINOMA IN SITU (DCIS) IS IDENTIFIED. B. BREAST, LEFT, ANTERIOR MARGIN, RE- EXCISION: BENIGN BREAST TISSUE SHOWING PRIOR BIOPSY SITE CHANGES. NO RESIDUAL DUCTAL CARCINOMA IN SITU (DCIS) IS IDENTIFIED. Electronically Signed Renea Dewey M.D. Gross Description A. Received in formalin labeled "lateral margin left breast," is a 2.9 x 2.0 x 0.9 cm irregular portion of fibroadipose tissue with a suture marking the biopsy cavity side, per the surgeon. The new margin is inked blue and the specimen is serially sectioned. The specimen is entirely and sequentially submitted in 4 cassettes. B. Received in formalin labeled "anterior margin left breast," is a 2.0 x 1.5 x 0.8 cm irregular portion of fibroadipose tissue with a suture marking the biopsy cavity side, per the surgeon. The new margin is inked blue and the specimen is serially sectioned. The specimen is entirely submitted in 3 cassettes. Time to formalin fixation: < 1 minute Total formalin fixation time: Approximately 28 hours. 02/17/2017 [facility]02/17/2017
== END 2017-02-16 15:45 | disposition home or self-care (01) ==
LOC: FASU 10:46
PROVIDERS: ATTEND Surgery Surgical Oncology
PROC: 0HBU0ZZ Excision of Left Breast, Open Approach (ICD-10-PCS; principal; 2017-02-16 13:40)
DX: C50.412 Malignant neoplasm of upper-outer quadrant of left female breast (principal); Z80.3 Family history of malignant neoplasm of breast
CPT/HCPCS: 84703; 88307-TC; 94760

== ENCOUNTER 2017-03-09 11:31 | Day surgery (SDC) | payer BC, OTHER ==
[2017-03-03 17:24] VITALS: BMI 20.6
--- NOTE | 2017-03-06 10:38 | HP ---
Admitting History and Physical - Primary Care Physician PCP: Jimbo Santiago - Admission Chief Complaint: left breast cancer History of Present Illness: 42 yo female with left breast poorly differentiated invasive ductal carcinoma is now presenting for insertion of infusaport in preparation for chemo therapy. History Source: Patient Limitations to Obtaining History: No Limitations - Past Medical History ...LMP: 02/04/17 Musculoskeletal: Yes: Osteoarthritis Dermatology: Yes: Psoriasis (arthritis) - Smoking History Smoking history: Never smoked Have you smoked in the past 12 months: No Aproximately how many cigarettes per day: 0 - Alcohol/Substance Use Hx Alcohol Use: No Home Medications - Allergies Allergies/Adverse Reactions: Allergies Allergy/AdvReac Type Severity Reaction Status Date / Time No Known Allergies Allergy Verified 03/03/17 17:24 - Home Medications Home Medications: Ambulatory Orders NK [No Known Home Medication] 02/15/17 Family Disease History - Family Disease History Family Disease History: CA: Grandparent (breast ca 50's?), Mother (breast ca 50) Review of Systems - Review of Systems Constitutional: reports: No Symptoms Cardiovascular: reports: No Symptoms Respiratory: reports: No Symptoms Physical Examination Breast(s): Yes: Other (Left breast well healed incision without erythema or discharge noted.) Problem List - Problems (1) Breast cancer, left Code(s): C50.912 - MALIGNANT NEOPLASM OF UNSPECIFIED SITE OF LEFT FEMALE BREAST Assessment/Plan Plan: Insertion of lifeport
[2017-03-09] MEDS ORDERED: KETOROLAC TROMETHAMINE 30 MG/1 ML VIAL IVPUSH PRN (14:13)
[2017-03-09] MEDS ORDERED: ONDANSETRON 4 MG/2 ML VIAL IVPB PRN (14:13)
[2017-03-09] MEDS ORDERED: MIDAZOLAM HCL 2 MG/2 ML SINGLE DOSE VIAL ONE (14:15)
[2017-03-09] MEDS ORDERED: PROPOFOL 20 ML ONE ×3 (14:15→15:28)
[2017-03-09] MEDS ORDERED: DEXTROSE 5%-0.45% SALINE 1,000 ML IV SCH (14:15)
[2017-03-09] MEDS ORDERED: ONDANSETRON 4 MG/2 ML VIAL ONE (15:55)
[2017-03-09] MEDS ORDERED: oxyCODONE HCL 5 MG TABLET PO PRN (15:58)
[2017-03-09] MEDS ORDERED: ONDANSETRON 4 MG/2 ML VIAL IVPUSH PRN (15:58)
[2017-03-09 16:53] VITALS: BP 98/68; TEMP 97.8
--- NOTE | 2017-03-09 16:57 | OP ---
DATE OF OPERATION: 03/09/2017 PREOPERATIVE DIAGNOSIS: Left breast cancer. POSTOPERATIVE DIAGNOSIS: Left breast cancer. PROCEDURE: Right-sided, single-lumen, subclavian vein Port-A-Cath placement for chemotherapy. SURGEON: Dewayne Santiago MD [employer]ER: CAITLIN Ruiz ANESTHESIA: Local with IV sedation. COMPLICATIONS: None. REASON FOR PROCEDURE: Briefly, the patient is a 42-year-old, G2, P2, premenopausal female, descent, who was found to have a mass in the upper outer aspect of the left breast. 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 MRI showed it to be localized. She underwent a wide excision on February 02, 2017, with a sentinel lymph node biopsy showing a 1.4-cm poorly differentiated cancer with negative nodes and underwent a re-excision to clear margins. The patient was seen by Medical Oncology and is a candidate for chemotherapy and requires a Port-A-Cath. Patient was brought in today on March 09, 2017, for Port-A-Cath placement. In the holding area, site verification was made, and informed consent was obtained. DESCRIPTION OF PROCEDURE: She was brought into the operating room, laid on the OR table in the supine position. Venodynes were placed on the lower extremities. The patient underwent IV sedation, and the upper right chest wall was sterilely prepped and draped in usual fashion. One gram of Ancef was given prior to incision. The right arm was tucked at her side with a rolled sheet underneath her midline spine. Next, 1% lidocaine was given just underneath her right clavicle for local anesthesia. The right subclavian vein was cannulated under ultrasound guidance, and the wire was threaded into the superior vena cava under fluoroscopy without difficulty. The wire was clipped to the drape. Next, 1% lidocaine was then given in the upper right chest wall and a 3-cm incision was made in the infraclavicular position and an infraclavicular pocket was fashioned. Hemostasis was achieved. The catheter was cut to the appropriate length attached to the Port-A-Cath chamber which was placed into the infraclavicular pocket and sutured in place using 2 separate 3-0 Prolene sutures. The tear-away sheath introducer was then placed over the guidewire under fluoroscopy with the dilator without difficulty. The dilator and wire were removed and the catheter was threaded down to the tear-away sheath and the tear-away sheath was torn away, leaving the catheter in good position in the superior vena cava. There was excellent blood return. It was flushed with dilute heparin. The catheter was then accessed, and 1 mL of concentrated heparin at 1000 units per mL was instilled into the Port-A-Cath chamber. The wound was closed using interrupted 3-0 deep dermal Vicryl suture and a running 4-0 subcuticular Biosyn suture. Mastisol and Steri-Strips were applied over the wound with a compressive dressing placed over this. The patient tolerated the procedure well without difficulty, was awake and alert at the end of the procedure. She was brought to the postanesthesia care unit to be recovered and to get a postoperative chest x-ray. As long as the chest x-ray showed the line in good position with no pneumothorax or hemothorax, they may use the line as soon as necessary for chemotherapy. All sponge and needle counts were correct at the end of the case. Estimated blood loss was minimal. DEWAYNE SANTIAGO M.D. [id number]
[2017-03-09] MEDS ORDERED: ACETAMINOPHEN 325 MG TABLET (FP) ONE (17:24)
[2017-03-09 17:31] VITALS: PULSE 73
== END 2017-03-09 18:03 | disposition home or self-care (01) ==
LOC: FASU 11:31
PROVIDERS: ATTEND Surgery Surgical Oncology
PROC: B546ZZA Ultrasonography of Right Subclavian Vein, Guidance (ICD-10-PCS; 2017-03-09)
PROC: 05H533Z Insertion of Infusion Device into Right Subclavian Vein, Percutaneous Approach (ICD-10-PCS; principal; 2017-03-09 14:50)
DX: C50.912 Malignant neoplasm of unspecified site of left female breast (principal)
CPT/HCPCS: 71010-TC; 84703; 94760; J1644

== ENCOUNTER 2017-03-23 07:32 | Day surgery (SDC) | payer BC, OTHER ==
[2017-03-23] MEDS ORDERED: SODIUM CHLORIDE 250 ML IV ONE ×2 (10:00→12:30)
[2017-03-23] MEDS ORDERED: DEXAMETHASONE INJECTION 20 MG in SODIUM CHLORIDE 50 ML IVPB ONE (10:00)
[2017-03-23] MEDS ORDERED: PALONOSETRON HCL 0.25 MG in SODIUM CHLORIDE 50 ML IVPB ONE (10:00)
[2017-03-23] MEDS ORDERED: DOCETAXEL 120 MG in SODIUM CHLORIDE 250 ML IV ONE (10:30)
[2017-03-23 10:44] LABS: BASOPHIL 0.1 % (0-2.0); MCH 29.5 pg (25.7-33.7); MCHC 32.6 g/dl (32.0-36.0); MEAN CELL VOLUME 90.4 fl (80-96); MEAN PLT VOLUME 8.4 fl (7.5-11.1); NEUTROPHILS 92.5 % (42.8-82.8); PLATELET COUNT 272 K/MM3 (134-434); WHITE BLOOD COUNT 16.1 K/mm3 (4.0-10.0)
[2017-03-23 11:08] LABS: ALBUMIN 3.9 g/dl (3.4-5.0); ANION GAP 9 (8-16); BILIRUBIN,DIRECT 0.1 mg/dL (0.0-0.2); BILIRUBIN,TOTAL 0.4 mg/dL (0.2-1.0); CALCIUM 9.7 mg/dL (8.5-10.1); CO2 24 mmol/L (21-32); CREATININE 0.7 mg/dL (0.55-1.02); GLUCOSE,RANDOM 136 mg/dL (74-106); MAGNESIUM 2.2 mg/dL (1.8-2.4); SGOT/AST 8 U/L (15-37); SGPT/ALT 16 U/L (12-78); TOT PROT 8.5 g/dl (6.4-8.2)
[2017-03-23 11:09] LABS: ALK PHOS 100 U/L (45-117)
[2017-03-23] MEDS ORDERED: LIDOCAINE 2.5%/PRILOCAINE 2.5% (5 Gram/TUBE) TP ONE (11:30)
[2017-03-23] MEDS ORDERED: CYCLOPHOSPHAMIDE INJECTION 980 MG in SODIUM CHLORIDE 250 ML IVPB ONE (11:30)
[2017-03-23 15:06] VITALS: TEMP 97.9
[2017-03-23] MEDS ORDERED: PORTA CATH FLUSH 10 ML IVPUSH ONE (15:06)
[2017-03-23 17:23] VITALS: BP 97/68; PULSE 73
== END 2017-03-23 17:20 | disposition home or self-care (01) ==
LOC: JONCCHEMO 07:32 → J7W 11:29 → JONCCHEMO 17:20
PROVIDERS: ATTEND Internal Medicine Hematology & Oncology
DX: Z51.11 Encounter for antineoplastic chemotherapy (principal); C50.411 Malignant neoplasm of upper-outer quadrant of right female breast
CPT/HCPCS: 36415; 80053; 80076; 83735; 84702; 84703; 85025; 96361; 96375; 96413; J2469; J9070; J9171

== ENCOUNTER 2017-03-24 07:26 | Day surgery (SDC) | payer BC, OTHER ==
[2017-03-24] MEDS ORDERED: PEGFILGRASTIM 6 MG/0.6 ML DISP.SYRIN SQ ONE (10:00)
[2017-03-24 16:07] VITALS: BP 100/56; PULSE 70; TEMP 98.2
== END 2017-03-24 16:37 | disposition home or self-care (01) ==
LOC: JONCCHEMO 07:26 → J7W 15:54 → JONCCHEMO 16:37
PROVIDERS: ATTEND Internal Medicine Hematology & Oncology
PROC: 3E013GC Introduction of Other Therapeutic Substance into Subcutaneous Tissue, Percutaneous Approach (ICD-10-PCS; principal; 2017-03-24)
DX: C50.411 Malignant neoplasm of upper-outer quadrant of right female breast (principal)
CPT/HCPCS: 96372; J2505

== ENCOUNTER 2017-04-13 07:21 | Day surgery (SDC) | payer BC, OTHER ==
[2017-04-13] MEDS ORDERED: DEXAMETHASONE INJECTION 20 MG in SODIUM CHLORIDE 50 ML IVPB ONE (10:00)
[2017-04-13] MEDS ORDERED: PALONOSETRON HCL 0.25 MG in SODIUM CHLORIDE 50 ML IVPB ONE (10:00)
[2017-04-13] MEDS ORDERED: SODIUM CHLORIDE 250 ML IV ONE ×2 (10:00→12:00)
[2017-04-13 10:30] LABS: BASOPHIL 0.2 % (0-2.0); MCH 29.7 pg (25.7-33.7); MCHC 33.2 g/dl (32.0-36.0); MEAN CELL VOLUME 89.5 fl (80-96); MEAN PLT VOLUME 7.5 fl (7.5-11.1); NEUTROPHILS 91.9 % (42.8-82.8); PLATELET COUNT 462 K/MM3 (134-434); RDW 14.5 % (11.6-15.6); WHITE BLOOD COUNT 14.2 K/mm3 (4.0-10.0)
[2017-04-13] MEDS ORDERED: DOCETAXEL 120 MG in SODIUM CHLORIDE 250 ML IV ONE (10:30)
[2017-04-13 10:57] LABS: ALBUMIN 3.8 g/dl (3.4-5.0); ANION GAP 9 (8-16); BILIRUBIN,DIRECT 0.1 mg/dL (0.0-0.2); CALCIUM 9.4 mg/dL (8.5-10.1); CO2 26 mmol/L (21-32); CREATININE 0.7 mg/dL (0.55-1.02); GLUCOSE,RANDOM 168 mg/dL (74-106); MAGNESIUM 2.2 mg/dL (1.8-2.4); SGOT/AST 5 U/L (15-37); SGPT/ALT 23 U/L (12-78)
[2017-04-13 10:59] LABS: ALK PHOS 98 U/L (45-117); BILIRUBIN,TOTAL 0.8 mg/dL (0.2-1.0); TOT PROT 8.2 g/dl (6.4-8.2)
[2017-04-13] MEDS ORDERED: CYCLOPHOSPHAMIDE INJECTION 980 MG in SODIUM CHLORIDE 250 ML IVPB ONE (11:30)
[2017-04-13 14:36] LABS: URINE APPEARANCE CLEAR; URINE BILIRUBIN NEGATIVE (NEGATIVE); URINE COLOR LT. YELLOW; URINE GLUCOSE (UA) NEGATIVE (NEGATIVE); URINE KETONE NEGATIVE (NEGATIVE); URINE NITRITE NEGATIVE (NEGATIVE); URINE PROTEIN NEGATIVE (NEGATIVE); URINE UROBILINOGEN 0.2 mg/dL (0.2-1.0)
[2017-04-13 14:37] LABS: URINE BLOOD TRACE (NEGATIVE)
[2017-04-13] MEDS ORDERED: PORTA CATH FLUSH 10 ML IVPUSH ONE ×2 (14:44→14:54)
[2017-04-13 14:45] VITALS: TEMP 98
[2017-04-13 14:53] LABS: FREE T4 1.22 ng/dl (0.76-1.46); THYROID STIMULATING HORMONE 0.38 uIU/ml (0.358-3.74)
[2017-04-13 15:47] VITALS: BP 102/53; PULSE 86
[2017-04-13 16:08] LABS: URINE RBC <1 /hpf (0-3); URINE WBC <1 /hpf (3-5)
[2017-04-13 18:18] LABS: URINE LEUK ESTERASE Negative (NEGATIVE)
== END 2017-04-13 15:48 | disposition home or self-care (01) ==
LOC: JONCCHEMO 07:21 → J7W 11:16 → JONCCHEMO 15:48
PROVIDERS: ATTEND Internal Medicine Hematology & Oncology
DX: Z51.11 Encounter for antineoplastic chemotherapy (principal); C50.411 Malignant neoplasm of upper-outer quadrant of right female breast
CPT/HCPCS: 36415; 80053; 80076; 81003; 81015; 83735; 83930; 83935; 84439; 84443; 84702; 84703; 85025; 96361; 96367; 96375; 96413; 96417; J2469; J9070; J9171

== ENCOUNTER 2017-05-04 07:19 | Day surgery (SDC) | payer BC ==
[2017-05-04] MEDS ORDERED: DEXAMETHASONE INJECTION 20 MG in SODIUM CHLORIDE 50 ML IVPB ONE (08:30)
[2017-05-04] MEDS ORDERED: PALONOSETRON HCL 0.25 MG in SODIUM CHLORIDE 50 ML IVPB ONE (08:30)
[2017-05-04 08:39] LABS: BASOPHIL 0.1 % (0-2.0); MCH 29.4 pg (25.7-33.7); MCHC 32.8 g/dl (32.0-36.0); MEAN CELL VOLUME 89.8 fl (80-96); MEAN PLT VOLUME 7.8 fl (7.5-11.1); NEUTROPHILS 91.3 % (42.8-82.8); PLATELET COUNT 282 K/MM3 (134-434); RDW 15.8 % (11.6-15.6); WHITE BLOOD COUNT 12.8 K/mm3 (4.0-10.0)
[2017-05-04] MEDS ORDERED: DOCETAXEL 120 MG in SODIUM CHLORIDE 250 ML IV ONE (09:00)
[2017-05-04 09:08] LABS: ALK PHOS 95 U/L (45-117); ANION GAP 10 (8-16); BILIRUBIN,DIRECT < 0.2 mg/dL (0.0-0.2); BILIRUBIN,TOTAL 0.6 mg/dL (0.2-1.0); CALCIUM 9.3 mg/dL (8.5-10.1); CO2 23 mmol/L (21-32); CREATININE 0.6 mg/dL (0.55-1.02); GLUCOSE,RANDOM 171 mg/dL (74-106); MAGNESIUM 2.2 mg/dL (1.8-2.4); SGOT/AST 6 U/L (15-37); SGPT/ALT 29 U/L (12-78)
[2017-05-04] MEDS ORDERED: CYCLOPHOSPHAMIDE INJECTION 980 MG in SODIUM CHLORIDE 250 ML IVPB ONE (10:00)
[2017-05-04] MEDS ORDERED: SODIUM CHLORIDE 250 ML IV ONE ×2 (10:30→13:20)
[2017-05-04 14:43] VITALS: TEMP 97.8
[2017-05-04] MEDS ORDERED: PORTA CATH FLUSH 10 ML IVPUSH ONE (14:43)
[2017-05-04 15:11] VITALS: BP 116/64; PULSE 84
== END 2017-05-04 15:15 | disposition home or self-care (01) ==
LOC: JONCCHEMO 07:19 → J7W 09:43 → JONCCHEMO 15:15
PROVIDERS: ATTEND Internal Medicine Hematology & Oncology
DX: Z51.11 Encounter for antineoplastic chemotherapy (principal); C50.411 Malignant neoplasm of upper-outer quadrant of right female breast
CPT/HCPCS: 36415; 80053; 80076; 83735; 85025; 96361; 96375; 96413; 96417; J2469; J9070; J9171

== ENCOUNTER 2017-05-05 07:14 | Day surgery (SDC) | payer BC ==
[2017-05-05] MEDS ORDERED: PEGFILGRASTIM 6 MG/0.6 ML DISP.SYRIN SQ ONE (08:00)
[2017-05-05 16:39] VITALS: BP 105/71; PULSE 77; TEMP 98.7; BMI 21.7
== END 2017-05-05 17:54 | disposition home or self-care (01) ==
LOC: JONCNONCHE 07:14 → J7W 16:14 → JONCNONCHE 17:54
PROVIDERS: ATTEND Internal Medicine Hematology & Oncology
PROC: 3E00XGC Introduction of Other Therapeutic Substance into Skin and Mucous Membranes, External Approach (ICD-10-PCS; principal; 2017-05-05)
DX: C50.411 Malignant neoplasm of upper-outer quadrant of right female breast (principal); Z76.89 Persons encountering health services in other specified circumstances
CPT/HCPCS: 96372; J2505

== ENCOUNTER 2017-05-07 17:50 | Emergency (ER) | payer BC ==
[2017-05-07 17:54] VITALS: BMI 21.7
[2017-05-07] MEDS ORDERED: SODIUM CHLORIDE 0.9% 1000 ML INFUS.BAG IV STA (18:28)
[2017-05-07 19:08] LABS: VENOUS PH 7.37 (7.32-7.42)
[2017-05-07 19:08] LABS: MCH 29.4 pg (25.7-33.7); MCHC 32.8 g/dl (32.0-36.0); MEAN CELL VOLUME 89.7 fl (80-96); MEAN PLT VOLUME 8.8 fl (7.5-11.1); PLATELET COUNT 154 K/MM3 (134-434); RDW 15.8 % (11.6-15.6); WHITE BLOOD COUNT 26.1 K/mm3 (4.0-10.0)
[2017-05-07 19:20] LABS: INR 1.09 (0.82-1.09); PROTHROMBIN TIME (PATIENT) 12.3 SEC (9.98-11.88)
--- NOTE | 2017-05-07 19:22 | PDOC ---
History of Present Illness <Shilpa Lowery - Last Filed: 05/07/17 21:30> - General History Source: Patient Exam Limitations: No Limitations - History of Present Illness Initial Comments: 05/07/17 19:23 The patient is a 42 year old female with a significant past medical history of Breast CA (on chemo) s/p left sided lumpectomy and invasive ductal who presents to the ED with complaints of fever since earlier today. The patient reports a fever of 100.4 F earlier today. She also reports nasal congestion and a dry non productive cough. Patient states her last chemo treatment was on , and she received neulasta on Monday. Denies abdominal pain, nausea, vomiting, or diarrhea. Denies chest pain and shortness of breath. Denies any other symptoms. Family hx: Grandmother and mother had Breast CA in their 50s <Atif Park - Last Filed: 05/07/17 21:39> - General Chief Complaint: SIRS, Suspected/Possible Stated Complaint: FEVER Time Seen by Provider: 05/07/17 18:01 Past History - Past Medical History Anemia: No Asthma: No Cancer: Yes (Left Breast) Cardiac Disorders: No CVA: No COPD: No CHF: No Dementia: No Diabetes: No GI Disorders: No Disorders: No HTN: No (LOW BP) Hypercholesterolemia: No Liver Disease: No Seizures: No Thyroid Disease: No - Surgical History Abdominal Surgery: No Appendectomy: No Cardiac Surgery: No Cholecystectomy: No Lung Surgery: No Neurologic Surgery: No Orthopedic Surgery: No - Suicide/Smoking/Psychosocial Hx Smoking Status: No Smoking History: Never smoked Have you smoked in the past 12 months: No Number of Cigarettes Smoked Daily: 0 Hx Alcohol Use: No Drug/Substance Use Hx: No Substance Use Type: None Hx Substance Use Treatment: No <Shilpa Lowery - Last Filed: 05/07/17 21:30> <Atif Park - Last Filed: 05/07/17 21:39> - Past Medical History Allergies/Adverse Reactions: Allergies Allergy/AdvReac Type Severity Reaction Status Date / Time No Known Allergies Allergy Verified 05/07/17 17:54 Home Medications: Ambulatory Orders Oxycodone HCl/Acetaminophen [Percocet 5-325 mg Tablet] 1 - 2 tab PO Q6H PRN #20 tab MDD 6 03/09/17 Dexamethasone [Decadron -] 8 mg PO BID 05/05/17 Omeprazole Magnesium [Prilosec] 20 mg PO DAILY 05/05/17 Review of Systems - Review of Systems Able to Perform ROS?: Yes Comments:: 05/07/17 19:23 CONSTITUTIONAL: + fever No reported: Diaphoresis, Generalized Weakness, Malaise, Loss of Appetite HEENT: + nasal congestion No reported: Rhinorrhea, Throat Pain, Throat Swelling, Difficulty Swallowing, Mouth Swelling, Ear Pain, Eye Pain, Visual Changes CARDIOVASCULAR: No reported: Chest Pain, Syncope, Palpitations, Irregular Heart Rate, Lightheadedness, Peripheral Edema RESPIRATORY: + cough No reported: Shortness of Breath, SOB with Exertion, Orthopnea, Wheezing, Stridor, Hemoptysis GASTROINTESTINAL: No reported: Abdominal pain, Abdominal Distension, Nausea, Vomiting, Diarrhea, Constipation, Melena, Hematochezia GENITOURINARY: No reported: Dysuria, Frequency, Urgency, Hesitancy, Flank Pain, Genital Pain MUSCULOSKELETAL: No reported: Myalgia, Arthralgia, Joint Swelling, Back pain, Neck Pain SKIN: No reported: Rash, Itching, Pallor HEMEATOLOGIC/IMMUNOLOGIC: No reported: Easy Bleeding, Easy Bruising, Lymphadenopathy, Frequent infections ENDOCRINE: No reported: Unexplained Weight Gain, Unexplained Weight Loss, Heat Intolerance , Cold Intolerance NEUROLOGIC: No reported: Headache, Focal Weakness, Paresthesias, Vertigo, Lightheadedness, Unsteady Gait, Seizure, Mental Status Changes, Incontinence PSYCHIATRIC: No reported: Anxiety, Depression All Other Systems: Reviewed and Negative <Atif Park - Last Filed: 05/07/17 21:39> *Physical Exam - Vital Signs Last Vital Signs Temp Pulse Resp BP Pulse Ox 99.7 F H 122 H 20 98/61 100 05/07/17 17:51 05/07/17 17:51 05/07/17 17:51 05/07/17 17:51 05/07/17 17:51 <Shilpa Lowery - Last Filed: 05/07/17 21:30> - Vital Signs Last Vital Signs Temp Pulse Resp BP Pulse Ox 99.7 F H 122 H 20 98/61 100 05/07/17 17:51 05/07/17 17:51 05/07/17 17:51 05/07/17 17:51 05/07/17 17:51 - Physical Exam Comments: 05/07/17 19:23 GENERAL: The patient is awake, alert, and fully oriented, Nontoxic - in no acute distress. HEAD: Normocephalic, atraumatic. EYES: extraocular movements intact, sclera anicteric, conjunctiva clear. ENT: Normal voice, Moist mucous membranes. NECK: Normal range of motion, supple LUNGS: Breath sounds equal, clear to auscultation bilaterally. No wheezes, no rhonchi, no rales. HEART: + tachycardic, Regular rhythm, without murmur, rub or gallop. ABDOMEN: Soft, nontender, normoactive bowel sounds. No guarding, no rebound.No CVA tenderness EXTREMITIES: Normal range of motion, no edema. No clubbing or cyanosis. No cords, erythema, or tenderness. NEUROLOGICAL: No facial assymetry, Normal speech, PSYCH: Normal mood, normal affect. SKIN: Warm, Dry, normal turgor, <Atif Park - Last Filed: 05/07/17 21:39> ED Treatment Course - LABORATORY CBC & Chemistry Diagram: 05/07/17 18:59 05/07/17 18:59 - ADDITIONAL ORDERS Additional order review: Laboratory Results 05/07/17 18:52 VBG pH 7.37 POC VBG pCO2 50.5 POC VBG pO2 24.5 L Mixed VBG HCO3 29.0 H 05/07/17 18:59 RBC 3.86 MCV 89.7 MCHC 32.8 RDW 15.8 H MPV 8.8 D Neutrophils % No Result Required. Lymphocytes % No Result Required. - Medications Given in the ED: ED Medications Discontinued Medications Generic Name Dose Route Start Last Admin Trade Name Freq PRN Reason Stop Dose Admin Sodium Chloride 1,000 ml 05/07/17 18:28 05/07/17 19:13 Normal Saline - IV 05/07/17 18:29 1,000 ml ONCE STA Administration <Shilpa Lowery - Last Filed: 05/07/17 21:30> - LABORATORY CBC & Chemistry Diagram: 05/07/17 18:59 05/07/17 18:59 - ADDITIONAL ORDERS Additional order review: Laboratory Results 05/07/17 18:52 VBG pH 7.37 POC VBG pCO2 50.5 POC VBG pO2 24.5 L Mixed VBG HCO3 29.0 H 05/07/17 18:59 RBC 3.86 MCV 89.7 MCHC 32.8 RDW 15.8 H MPV 8.8 D Neutrophils % No Result Required. Lymphocytes % No Result Required. - Medications Given in the ED: ED Medications Discontinued Medications Generic Name Dose Route Start Last Admin Trade Name Fermin PRN Reason Stop Dose Admin Sodium Chloride 1,000 ml 05/07/17 18:28 05/07/17 19:13 Normal Saline - IV 05/07/17 18:29 1,000 ml ONCE STA Administration <Atif Park - Last Filed: 05/07/17 21:39> Medical Decision Making - Medical Decision Making 05/07/17 21:25 42-year-old female with breast cancer undergoing chemotherapy, presents with nasal congestion, cough and low-grade fever 99.7. She did have chemotherapy on and then got Neulasta on Monday. She did have an elevated white count with leukocytosis of 26,000. However, she was not neutropenic. Neutrophils are 78%. Chemistries were reviewed and essentially unremarkable. Urinalysis was negative for infection. Negative test was obtained Chest x-ray did not show any discrete infiltrates or consolidation. Influenza swab was negative Patient denied chest pain or abdominal pain or nausea, vomiting, diarrhea. Oncologist was called and Dr. Leopoldo Alegre was being covered by Dr. Bailon PLAN patient does have an appointment on Monday. She is going to take her labs with her to follow-up with her oncologist. Patient told to take Tylenol for fever and muscle aches and keep hydrated. Patient to return for any worsening symptoms <Shilpa Lowery - Last Filed: 05/07/17 21:30> - Medical Decision Making 05/07/17 21:[address] Luu at 21:18 <Atif Park - Last Filed: 05/07/17 21:39> *DC/Admit/Observation/Transfer <Shilpa Lowery - Last Filed: 05/07/17 21:30> - Attestations Scribe Attestion: 05/07/17 19:24 Documentation prepared by Atif Park, acting as medical doctor md/medical director for Shilpa Lowery MD <Atif Park - Last Filed: 05/07/17 21:39> Diagnosis at time of Disposition: Upper respiratory infection Qualifiers: URI type: unspecified viral URI Qualified Code(s): J06.9 - Acute upper respiratory infection, unspecified Breast cancer, left Qualifiers: Breast location: unspecified site of breast Estrogen receptor status: unspecified Patient sex: female Qualified Code(s): C50.912 - Malignant neoplasm of unspecified site of left female breast - Discharge Dispostion Disposition: HOME Condition at time of disposition: Stable - Referrals Referrals: Jj Francisco MD [Primary Care Provider] - - Patient Instructions Printed Discharge Instructions: DI for Chemotherapy -- Adult, DI for Viral Upper Respiratory Infection -- Adult Additional Instructions: PLEASE SEE YOUR DOCTOR ON MONDAY TAKE TYLENOL FOR MUSCLE ACHES,FEVER RETURN FOR ANY WORSENING SYMPTOMS - Post Discharge Activity
[2017-05-07 19:23] LABS: ACTIVATED PTT 25.9 SECONDS (26.9-34.4)
[2017-05-07 19:33] LABS: ALBUMIN 3.3 g/dl (3.4-5.0); ANION GAP 8 (8-16); BILIRUBIN,TOTAL 0.9 mg/dL (0.2-1.0); CALCIUM 7.7 mg/dL (8.5-10.1); CO2 30 mmol/L (21-32); CREATININE 0.7 mg/dL (0.55-1.02); GLUCOSE,RANDOM 84 mg/dL (74-106); SGOT/AST 12 U/L (15-37); SGPT/ALT 21 U/L (12-78); TOT PROT 6.5 g/dl (6.4-8.2)
[2017-05-07 19:36] LABS: ALK PHOS 108 U/L (45-117); CPK 49 IU/L (26-192); TROPONIN I < 0.02 ng/ml (0.00-0.05)
[2017-05-07 19:48] LABS: URINE APPEARANCE CLEAR; URINE BILIRUBIN NEGATIVE (NEGATIVE); URINE BLOOD 1+ (NEGATIVE); URINE COLOR LTYELLOW; URINE GLUCOSE (UA) NEGATIVE (NEGATIVE); URINE KETONE NEGATIVE (NEGATIVE); URINE NITRITE NEGATIVE (NEGATIVE); URINE PROTEIN NEGATIVE (NEGATIVE); URINE UROBILINOGEN NEGATIVE mg/dL (0.2-1.0)
[2017-05-07 19:55] LABS: URINE BACTERIA RARE /hpf (NONE SEEN); URINE MUCUS RARE; URINE RBC 1; URINE WBC 4
[2017-05-07 20:48] LABS: TOTAL CELLS COUNTED 100
[2017-05-07 20:49] LABS: METAMYELOCYTE 4 % (0-2); TOXIC GRANULATION FEW
[2017-05-07] MEDS ORDERED: ACETAMINOPHEN 325 MG TABLET (FP) PO ONE (21:23)
[2017-05-07] MEDS ORDERED: ACETAMINOPHEN 325 MG TABLET (FP) ONE (21:25)
[2017-05-07 22:05] VITALS: BP 104/74; PULSE 98; TEMP 99
[2017-05-07 22:19] LABS: URINE LEUK ESTERASE Negative (NEGATIVE)
--- NOTE | 2017-05-08 09:50 | EKG ---
Test Reason : Blood Pressure : / mmHG Vent. Rate : 113 BPM Atrial Rate : 113 BPM P-R Int : 128 ms QRS Dur : 086 ms QT Int : 334 ms P-R-T Axes : 063 009 052 degrees QTc Int : 458 ms POOR DATA QUALITY, INTERPRETATION MAY BE ADVERSELY AFFECTED SINUS TACHYCARDIA LOW VOLTAGE QRS SEPTAL INFARCT , AGE UNDETERMINED ABNORMAL ECG WHEN COMPARED WITH ECG OF 26-SEP-2013 15:48, VENT. RATE HAS INCREASED BY 41 BPM SEPTAL INFARCT IS NOW PRESENT Confirmed by SY BAE, ANGELINA ([id number]) on 05/08/2017 9:49:49 AM Referred By: Confirmed By:ANGELINA DAN MD
== END 2017-05-07 22:05 | disposition home or self-care (01) ==
LOC: JER 17:50
DX: J06.9 Acute upper respiratory infection, unspecified (principal); C50.912 Malignant neoplasm of unspecified site of left female breast
CPT/HCPCS: 36415; 71020-TC; 80053; 81003; 81015; 82550; 82803; 83605; 84484; 84703; 85025; 85610; 85730; 86850; 86900; 86901; 87040; 87086; 87804; 93005; 93010; 99282-25

== ENCOUNTER 2017-05-08 11:57 | Inpatient (IN) | payer BC, OTHER ==
--- NOTE | 2017-05-08 12:27 | PDOC ---
Attending Attestation - HPI HPI: 05/08/17 14:16 Patient is a 42 yo female with a PMHx of breast cancer (on chemotherapy) s/p left-sided lumpectomy and invasive ductal who was referred by her pcp today c/o fever since yesterday and possible sepsis. PCP: Jj Francisco Oncologist: Orin Shepherd - Physicial Exam PE: 05/08/17 14:22 GENERAL: Awake, alert, and fully oriented, in no acute distress. HEAD: No signs of trauma EYES: PERRLA, EOMI, sclera anicteric, conjunctiva clear ENT: Auricles normal inspection, hearing grossly normal, nares patent, oropharynx clear without exudates. Moist mucosa. Slight cough. NECK: Normal ROM, supple, no lymphadenopathy, JVD, or masses LUNGS: Breath sounds equal, clear to auscultation bilaterally. No wheezes, and no crackles HEART: Port to right chest wall that's very clean. Regular rate and rhythm, normal S1 and S2, no murmurs, rubs or gallops ABDOMEN: Soft, nontender, normoactive bowel sounds. No guarding, no rebound. No masses EXTREMITIES: Normal range of motion, no edema. No clubbing or cyanosis. No cords, erythema, or tenderness NEUROLOGICAL: Cranial nerves II through XII grossly intact. Normal speech, normal gait SKIN: Warm to touch, Dry, normal turgor, no rashes or lesions noted. <Luda Mehta - Last Filed: 05/08/17 14:22> - Resident Resident Name: Sahra Doty - ED Attending Attestation I have performed the following: I have examined & evaluated the patient, The case was reviewed & discussed with the resident, I agree w/resident's findings & plan, Exceptions are as noted - Medical Decision Making 05/08/17 12:27 I, Dr. Nancie Gupta, DO, attest that this document has been prepared under my direction and personally reviewed by me in its entirety. I further attest, that it accurately reflects all work, treatment, procedures and medical decision -making performed by me. 05/08/17 16:57 a/p: 42yo female on active chemo for breast ca with a port in place -fevers at home had labs, xray, flu, urine yesterday that was negative cultures pending back today for admission will discuss with ID and start abx pt will be admitted to the hospital <Nancie Gupta - Last Filed: 05/08/17 16:58>
--- NOTE | 2017-05-08 13:10 | PDOC ---
History of Present Illness - General Chief Complaint: SIRS, Suspected/Possible Stated Complaint: chemo,fever,revisit(PCP SENT) Time Seen by Provider: 05/08/17 12:16 - History of Present Illness Initial Comments: 42 yo female with a PMH of breast cancer (s/p left-sided lumpectomy currently on chemotherapy) who was referred by her oncologist today for fever and possible sepsis. She was in the ED 2 days prior to presentation for similar symptoms and was reated with tylenol and dsicharged with improvement. However, her symptoms have not been improving over the last two days she sought further treatment. 05/11/17 05:57 Past History - Past Medical History Allergies/Adverse Reactions: Allergies Allergy/AdvReac Type Severity Reaction Status Date / Time No Known Allergies Allergy Verified 05/08/17 12:00 Home Medications: Ambulatory Orders Dexamethasone [Decadron -] 8 mg PO BID PRN 05/05/17 Omeprazole Magnesium [Prilosec] 20 mg PO DAILY 05/05/17 Nystatin Oral Suspension - [Nystatin Oral Susp 341068 Units/5 ML -] 500,000 units PO QID 05/09/17 Prednisone 10 mg PO DAILY 05/09/17 Anemia: No Asthma: No Cancer: Yes (Left Breast) Cardiac Disorders: No CVA: No COPD: No CHF: No Dementia: No Diabetes: No GI Disorders: No Disorders: No HTN: No (LOW BP) Hypercholesterolemia: No Liver Disease: No Seizures: No Thyroid Disease: No - Surgical History Abdominal Surgery: No Appendectomy: No Cardiac Surgery: No Cholecystectomy: No Lung Surgery: No Neurologic Surgery: No Orthopedic Surgery: No - Suicide/Smoking/Psychosocial Hx Smoking Status: No Smoking History: Never smoked Have you smoked in the past 12 months: No Number of Cigarettes Smoked Daily: 0 Information on smoking cessation initiated: No Hx Alcohol Use: No Drug/Substance Use Hx: No Substance Use Type: None Hx Substance Use Treatment: No Review of Systems - Review of Systems Constitutional: Yes: Chills, Fever, Loss of Appetite HEENTM: No: Blurred Vision Respiratory: No: Cough, Shortness of Breath Cardiac (ROS): No: Chest Pain, Irregular Heart Rate : No: Burning, Dysuria Musculoskeletal: No: Joint Pain, Neck Pain, Joint Stiffness Integumentary: No: Bruising, Change in Color Neurological: Yes: Headache Psychiatric: No: Anxiety, Depression *Physical Exam - Vital Signs Last Vital Signs Temp Pulse Resp BP Pulse Ox 99.0 F 124 H 20 108/63 99 05/08/17 12:00 05/08/17 12:00 05/08/17 12:00 05/08/17 12:00 05/08/17 12:00 - Physical Exam General Appearance: Yes: Appropriately Dressed, Thin. No: Apparent Distress HEENT: positive: EOMI, MAZIN, Normal ENT Inspection, Normal Voice Neck: positive: Trachea midline, Normal Thyroid, Supple. negative: Tender, Rigid Respiratory/Chest: positive: Lungs Clear, Normal Breath Sounds, Other ([place] in place in right chest C/D/I). negative: Chest Tender, Respiratory Distress Cardiovascular: positive: Regular Rhythm, Tachycardia (Tachy to low 100s upper 90s). negative: Regular Rate Gastrointestinal/Abdominal: positive: Normal Bowel Sounds, Flat, Soft. negative : Tender Musculoskeletal: positive: Normal Inspection Extremity: positive: Normal Capillary Refill, Normal Inspection Integumentary: positive: Normal Color, Dry, Warm Neurologic: positive: Fully Oriented, Alert, Normal Mood/Affect, Motor Strength 10/21 ED Treatment Course - LABORATORY CBC & Chemistry Diagram: 05/11/17 06:00 05/11/17 06:00 Medical Decision Making - Medical Decision Making 42 year old female with fever and slight tachycardia while undergoing chemotherapy for malignancy. Although her recurrent fevers are most likely related to a URI, this is concerning in the setting of active chemo. Her WBC is elevated but this is most likely secondary to neulasta administration a few days prior. Spoke to her oncologist (Orin), PMD (Maryam), and ID (Juan C). ID saw her in the ED and placed abx orders. Patient admitted in stable condition for abx treatment and fever curve monitoring. 05/11/17 20:26 *DC/Admit/Observation/Transfer Diagnosis at time of Disposition: Fever - Discharge Dispostion Disposition: HOME Condition at time of disposition: Stable - Referrals - Patient Instructions - Post Discharge Activity
[2017-05-08] MEDS ORDERED: SODIUM CHLORIDE 1,000 ML IV STA (13:17)
[2017-05-08] MEDS ORDERED: LEVOFLOXACIN 750 MG IVPB 750 MG/150 ML BAG IVPB ONE ×2 (14:13→14:43)
--- NOTE | 2017-05-08 14:31 | PN ---
Progress Note (short form) - Note Progress Note: ID Consult dictated Breast ca s/p 3rd cycle taxotere/ cytoxan 05/04 Fever/ URI, possible viral illness Possible non- neutropenic sepsis Hx psoriasis on prednisone 15mg daily Await c/s CT chest Empiric ceftriaxone/ zithromax, vanco x 1
[2017-05-08 14:51] LABS: VENOUS BLOOD GAS HCO3 28.9 meq/L (19-25); VENOUS PH 7.4 (7.32-7.42)
[2017-05-08 14:54] LABS: MCH 29.2 pg (25.7-33.7); MCHC 32.9 g/dl (32.0-36.0); MEAN CELL VOLUME 88.8 fl (80-96); MEAN PLT VOLUME 8.4 fl (7.5-11.1); PLATELET COUNT 118 K/MM3 (134-434); RDW 15.4 % (11.6-15.6); WHITE BLOOD COUNT 11.2 K/mm3 (4.0-10.0)
[2017-05-08] MEDS: CEFTRIAXONE 2 GM in DEXTROSE 5%-WATER - 100 ML IVPB SCH (15:11)
[2017-05-08 15:12] LABS: ALBUMIN 3.3 g/dl (3.4-5.0); ANION GAP 10 (8-16); CALCIUM 8.2 mg/dL (8.5-10.1); CO2 26 mmol/L (21-32); CREATININE 0.4 mg/dL (0.55-1.02); GLUCOSE,RANDOM 79 mg/dL (74-106); INR 1.14 (0.82-1.09); PROTHROMBIN TIME (PATIENT) 12.9 SEC (9.98-11.88); SGOT/AST 12 U/L (15-37); SGPT/ALT 18 U/L (12-78); TOT PROT 6.3 g/dl (6.4-8.2)
[2017-05-08] MEDS ORDERED: VANCOMYCIN 1,000 MG in DEXTROSE 5%-WATER - 250 ML IVPB ONE (15:12)
[2017-05-08 15:15] LABS: ACTIVATED PTT 35.4 SECONDS (26.9-34.4); ALK PHOS 104 U/L (45-117); BILIRUBIN,TOTAL 0.9 mg/dL (0.2-1.0); CPK 42 IU/L (26-192); TROPONIN I < 0.02 ng/ml (0.00-0.05)
[2017-05-08 15:54] LABS: URINE APPEARANCE CLEAR; URINE BILIRUBIN NEGATIVE (NEGATIVE); URINE BLOOD 1+ (NEGATIVE); URINE COLOR STRAW; URINE GLUCOSE (UA) NEGATIVE (NEGATIVE); URINE KETONE NEGATIVE (NEGATIVE); URINE NITRITE NEGATIVE (NEGATIVE); URINE PROTEIN NEGATIVE (NEGATIVE); URINE UROBILINOGEN NEGATIVE mg/dL (0.2-1.0)
[2017-05-08] MEDS ORDERED: PROCHLORPERAZINE MALEATE 5 MG TABLET PO PRN (16:49)
[2017-05-08 16:59] LABS: URINE RBC <1 /hpf (0-3); URINE WBC 2 /hpf (3-5)
[2017-05-08] MEDS ORDERED: AZITHROMYCIN IVPB 500 MG in DEXTROSE 5%-WATER - 250 ML IVPB SCH ×2 (17:00→17:51)
[2017-05-08 17:46] VITALS: BMI 21.4
[2017-05-08] MEDS ORDERED: PT OWN MED DRAWER 7, Y5N ONE (17:56)
--- NOTE | 2017-05-08 17:56 | CONSULT ---
Consult - text type - Consultation Consultation Note: abdominal pain/nausea/vomiting/diarrhea No urinarry symptoms PMH Psoriasis Psoriatic arthritis Last Vital Signs Temp Pulse Resp BP Pulse Ox 98.7 F 105 H 20 141/86 100 05/08/17 17:43 05/08/17 17:43 05/08/17 17:43 05/08/17 17:43 05/08/17 17:32 HEENT: CHUYITA, EOM Intact Oropharynx:+ thrush Breasts: Without masses Cor: RSR, No murmurs, No gallops Lungs: Clear to P&A Abd: Soft, Normal bowel sounds, No organomegaly Ext:No significant edema psoriasis skin lesions stable--stable Abnormal Lab Results 05/08/17 05/08/17 05/08/17 13:17 14:30 14:30 WBC Plt Count PT with INR 12.90 H PTT (Actin FS) 35.4 H D Mixed VBG HCO3 28.9 H Potassium 3.1 L Creatinine 0.4 L D Calcium 8.2 L AST 12 L Total Protein 6.3 L Albumin 3.3 L Urine Blood 05/08/17 05/08/17 14:55 15:16 WBC 11.2 H D Plt Count 118 L D PT with INR PTT (Actin FS) Mixed VBG HCO3 Potassium Creatinine Calcium AST Total Protein Albumin Urine Blood 1+ H Home Medication List Medication Instructions Recorded Confirmed Type Dexamethasone [Decadron -] 8 mg PO BID 05/05/17 05/05/17 History Omeprazole Magnesium [Prilosec] 20 mg PO DAILY 05/05/17 05/05/17 History Active Medications Generic Name Dose Route Start Last Admin Trade Name Fermin PRN Reason Stop Dose Admin Ceftriaxone Sodium 2 gm/ 100 mls @ 200 mls/hr 05/08/17 15:00 05/08/17 15:11 Dextrose IVPB 200 mls/hr DAILY MORALES Administration Azithromycin 500 mg/ Dextrose 250 mls @ 250 mls/hr 05/08/17 17:51 IVPB DAILY@1700 MORALES Sodium Chloride 1,000 mls @ 42 mls/hr 05/08/17 18:00 Normal Saline - IV ASDIR MORALES Nystatin 500,000 units 05/08/17 17:00 Nystatin Oral Suspension - PO Q6HPO MORALES Pantoprazole Sodium 40 mg 05/09/17 10:00 Protonix - PO DAILY MORALES Prednisone 10 mg 05/09/17 10:00 Deltasone - PO DAILY MORALES Prochlorperazine Maleate 10 mg 05/08/17 16:49 Compazine - PO Q8H PRN NAUSEA AND/OR VOMITING A/P 42 y/o patient with breast cancer, stage I, poorly differentiated, C1 D5 taxotere/cytoxan. s/p neulasta Comes in with low grade fevers/URI symptoms/cough Clinical picture seems like viral URI/bronchitis Appreciate ID ocnsult Azithromax/rocephin/Vanco Gentle hydration Chest Ct pulmonary consult discussed with Dr. 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
[2017-05-08] MEDS ORDERED: ATOVAQUONE 750 MG/5 ML (UNIT-DOSE PACKAGING) PO ONE (18:00)
[2017-05-08] MEDS ORDERED: POTASSIUM CHLORIDE ORAL LIQUID 20 MEQ/15 ML PO ONE (18:00)
[2017-05-08] MEDS: NYSTATIN 500,000 UNITS/5 ML SUSPENSION PO SCH ×3 (18:07→23:52)
[2017-05-08] MEDS: SODIUM CHLORIDE 1,000 ML IV SCH (18:07)
[2017-05-08 19:16] LABS: URINE LEUK ESTERASE TRACE (NEGATIVE)
--- NOTE | 2017-05-08 19:26 | CONS ---
DATE OF CONSULTATION: INFECTIOUS DISEASE CONSULTATION HISTORY OF PRESENT ILLNESS: The patient is a 42-year-old female with a history of breast cancer on chemotherapy, evaluated for fever. The patient presents with a 2-day history of fever, generalized weakness, and upper respiratory tract symptoms. She had received her 3rd cycle of Taxotere and Cytoxan on , May 04, 2017. She received Neulasta the following day and is on a short course of Decadron. The patient developed low-grade fever to 100.4 associated with upper respiratory tract symptoms including sinusitis, laryngitis, dry cough, nasal congestion. She presented to the emergency room on Sunday, May 07, 2017. At that time she was evaluated. Rapid flu test was performed and was negative. Cultures were obtained. Chest x-ray was negative. She was discharged home. She continued to feel unwell with low-grade fever and weakness. 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 She was noted to have a temperature of 100.1 earlier this morning. She is now evaluated in the emergency room. She complains of upper respiratory tract symptoms with dry cough, sinus congestion, laryngitis. She denies any high-grade fever or shaking chills. No complaints of chest pain or shortness of breath. No hemoptysis. She denies any vomiting or diarrhea. No dysuria or hematuria. Her port has been working well. PAST MEDICAL HISTORY: Positive for breast CA. She was diagnosed with estrogen and progesterone receptor positive breast cancer in December of 2016. She underwent a partial left mastectomy on January 24, 2017, with a sentinel node biopsy which was negative. A port was placed in February 2017 and she started her regimen of Taxotere and Cytoxan. She has received a third and fourth cycles on May 04, 2017. Past medical history also positive for psoriasis which has been fairly well controlled on prednisone 20 mg daily now down to 10 and topical steroids. She also has a history of psoriatic arthritis. ALLERGIES: No known allergies. MEDICATION: Include prednisone, omeprazole. 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 She has not yet received influenza vaccine. Nonsmoker, nondrinker. SYSTEMS REVIEW: Neurologic: No loss of consciousness, seizure activity, or focal weakness. Cardiac: Negative chest pain or palpitations. Respiratory: As per HPI. Gastrointestinal: Negative vomiting or diarrhea. Genitourinary: Negative for urinary tract infection. LABORATORY DATA: White count 26.1, 78% neutrophils. Hematocrit 34.6, platelet count 154, creatinine 0.7. Urinalysis 4 white cells. Chest x-ray from yesterday, no acute infiltrate. PHYSICAL EXAMINATION: General: She is awake and alert. She is not acutely toxic appearing. She is weak appearing and audibly congested. Vital signs: Temperature 99.0, blood pressure 108/67, pulse 120 regular, respirations 20 per minute. HEENT: Sclerae anicteric. Oropharynx, tongue coated. No lesions noted. Neck: Supple. No palpable nodes. Cardiovascular: Heart sounds S1, S2. Respiratory: Lungs clear. Port site, no erythema or tenderness. Abdomen: Soft. No tenderness elicited. Extremities: Negative for edema. Skin: There are psoriatic lesions present on back of the neck, at the base of the skull. There is also psoriasis on the elbows bilaterally. There is also psoriasis present on the lateral aspect of both thighs. The lesions do not appear to be secondarily infected. IMPRESSION: 1. Breast cancer status post third cycle Taxotere and Cytoxan. 2. Fever/upper respiratory tract infection. 3. Possible non-neutropenic sepsis. 4. History of psoriasis on daily prednisone. Await cultures. Obtain CAT scan of the chest. Concerned about the possibility of opportunistic infection, specifically PCP in light of Decadron and maintenance prednisone for psoriasis. Empiric antibiotic coverage with ceftriaxone, Zithromax pending culture results. Case discussed with Dr. Sr. Will follow. Thank you for the kind referral. MARILYN MAO M.D. [id number]
[2017-05-08 20:18] LABS: METAMYELOCYTE 7 % (0-2); MYELOCYTE 2 % (0-2); PLATELET ESTIMATE DECREASED; TOTAL CELLS COUNTED 100
[2017-05-08] MEDS ORDERED: ACETAMINOPHEN 325 MG TABLET (FP) PO PRN (20:40)
[2017-05-08] MEDS: AZITHROMYCIN IVPB 500 MG in DEXTROSE 5%-WATER - 250 ML IVPB SCH (21:52)
[2017-05-09] MEDS: NYSTATIN 500,000 UNITS/5 ML SUSPENSION PO SCH ×4 (06:14→23:56)
[2017-05-09 07:51] LABS: MCH 29.2 pg (25.7-33.7); MCHC 32.8 g/dl (32.0-36.0); MEAN CELL VOLUME 89.2 fl (80-96); MEAN PLT VOLUME 8.6 fl (7.5-11.1); PLATELET COUNT 111 K/MM3 (134-434); RDW 15.7 % (11.6-15.6); WHITE BLOOD COUNT 4.7 K/mm3 (4.0-10.0)
[2017-05-09 07:59] LABS: INR 1.17 (0.82-1.09); PROTHROMBIN TIME (PATIENT) 13.2 SEC (9.98-11.88)
[2017-05-09 08:01] LABS: ACTIVATED PTT 25.8 SECONDS (26.9-34.4)
[2017-05-09 08:17] LABS: ANION GAP 7 (8-16); CALCIUM 8.1 mg/dL (8.5-10.1); CO2 29 mmol/L (21-32); GLUCOSE,RANDOM 86 mg/dL (74-106); SGOT/AST 8 U/L (15-37); SGPT/ALT 14 U/L (12-78)
[2017-05-09 08:20] LABS: ALBUMIN 3.1 g/dl (3.4-5.0); ALK PHOS 93 U/L (45-117); BILIRUBIN,TOTAL 0.9 mg/dL (0.2-1.0); CREATININE 0.4 mg/dL (0.55-1.02)
[2017-05-09] MEDS ORDERED: PT OWN MED DRAWER 7, Y5N ONE ×2 (09:03→21:57)
[2017-05-09] MEDS: PANTOPRAZOLE 40 MG TABLET (FP) PO SCH (09:12)
--- NOTE | 2017-05-09 09:20 | PN ---
Progress Note (short form) - Note Progress Note: Patient seen and examined. She feels tired she says. No further nausea, vomiting. Had a normal Bowel movement. No diarrhea. O/E HEENT: [place], EOM Intact Oropharynx:+ thrush Breasts: Without masses Cor: RSR, No murmurs, No gallops Lungs: Clear to P&A Abd: Soft, Normal bowel sounds, No organomegaly Ext:No significant edema psoriasis skin lesions stable--stable Last Vital Signs Temp Pulse Resp BP Pulse Ox 98.3 F 99 H 20 103/71 99 05/09/17 05:22 05/09/17 05:22 05/09/17 05:22 05/09/17 05:22 05/08/17 21:00 CBC, BMP 05/09/17 06:00 05/09/17 06:00 Current Medications Generic Name Dose Route Start Last Admin Trade Name Freq PRN Reason Stop Dose Admin Acetaminophen 650 mg 05/08/17 20:40 Tylenol - PO Q6H PRN FEVER OR PAIN Ceftriaxone Sodium 2 gm/ 100 mls @ 200 mls/hr 05/08/17 15:00 05/08/17 15:11 Dextrose IVPB 200 mls/hr DAILY MORALES Administration Sodium Chloride 1,000 mls @ 42 mls/hr 05/08/17 18:00 05/08/17 18:07 Normal Saline - IV 42 mls/hr ASDIR MORALES Administration Azithromycin 500 mg/ Dextrose 250 mls @ 250 mls/hr 05/08/17 22:00 05/08/17 21 :52 IVPB 250 mls/hr DAILY@1700 MORALES Administration Nystatin 500,000 units 05/08/17 17:00 05/09/17 06:14 Nystatin Oral Suspension - PO 500,000 units Q6HPO MORALES Administration Pantoprazole Sodium 40 mg 05/09/17 10:00 05/09/17 09:12 Protonix - PO 40 mg DAILY MORALES Administration Prednisone 10 mg 05/09/17 10:00 05/09/17 09:12 Deltasone - PO 10 mg DAILY MORALES Administration Prochlorperazine Maleate 10 mg 05/08/17 16:49 Compazine - PO Q8H PRN NAUSEA AND/OR VOMITING Assessment/Plan: Stage I poorly differentiated left Breast IDC ER positive, [place] positive, HER2 negative, s/p C3 TC Viral Uri/Bronchitis Nausea Psoriasis Plan: -monitor counts, today stable. -Appreciate ID c/s. Micro pending. -No further nausea, vomiting -Hypokalemia resolved. -Psoriasis: on prednisone. she will let us know what topical agent to be given. On mepron to be continued. -CT chest reviewed, no infiltrate noted, small pericardial effusion, ECHO pending. Pulm c/s -DVT ppx will follow
[2017-05-09] MEDS: CEFTRIAXONE 2 GM in DEXTROSE 5%-WATER - 100 ML IVPB SCH (09:52)
--- NOTE | 2017-05-09 09:56 | CON.PULM ---
Consult Consult Specialty:: PULM/CCM Referred by:: DWAIN Reason for Consultation:: Cough / fever - History of Present Illness Chief Complaint: URI symptoms History of Present Illness: 42 F, Stage I poorly differentiated left Breast IDC ER positive, [place] positive, HER2 negative, s/p C3 TC. Additional history of Psoriasis. Admitted via the ER due to a few days of mildly congested cough with thick but scant sputum production. No hemoptysis. No travel history or specific sick contact. No night sweats or chills. No unexplained weight loss. CT: minimal LLL atelectasis versus scarring - History Source History Provided By: Patient Limitations to Obtaining History: No Limitations - Past Medical History ...LMP: 02/04/17 Heme/Onc: Yes: Other (breast CA ) Musculoskeletal: Yes: Osteoarthritis Dermatology: Yes: Psoriasis (arthritis) - Alcohol/Substance Use Hx Alcohol Use: No - Smoking History Smoking history: Never smoked Have you smoked in the past 12 months: No Aproximately how many cigarettes per day: 0 Home Medications - Allergies Allergies/Adverse Reactions: Allergies Allergy/AdvReac Type Severity Reaction Status Date / Time No Known Allergies Allergy Verified 05/08/17 12:00 - Home Medications Home Medications: Ambulatory Orders Dexamethasone [Decadron -] 8 mg PO BID PRN 05/05/17 Omeprazole Magnesium [Prilosec] 20 mg PO DAILY 05/05/17 Nystatin Oral Suspension - [Nystatin Oral Susp 647785 Units/5 ML -] 500,000 units PO QID 05/09/17 Prednisone 10 mg PO DAILY 05/09/17 Family Disease History - Family Disease History Family Disease History: CA: Grandparent (breast ca 50's?), Mother (breast ca 50) Review of Systems - Review of Systems Constitutional: reports: Fever, Malaise, Weakness. denies: Chills, Night Sweats , Unintentional Wgt. Loss Eyes: reports: No Symptoms HENT: reports: No Symptoms Neck: reports: No Symptoms Cardiovascular: denies: Chest Pain, Edema, Palpitations, Shortness of Breath Respiratory: reports: Cough. denies: Hemoptysis, Orthopnea, SOB on Exertion, Wheezing Gastrointestinal: reports: No Symptoms Genitourinary: reports: No Symptoms Breasts: reports: No Symptoms Reported Musculoskeletal: reports: No Symptoms Integumentary: reports: No Symptoms Neurological: reports: No Symptoms Endocrine: reports: No Symptoms Hematology/Lymphatic: reports: No Symptoms Psychiatric: reports: No Symptoms Physical Exam Vital Sings: Vital Signs Temperature 98.3 F 05/09/17 05:22 Pulse Rate 99 H 05/09/17 05:22 Respiratory Rate 20 05/09/17 05:22 Blood Pressure 103/71 05/09/17 05:22 O2 Sat by Pulse Oximetry (%) 99 05/08/17 21:00 Constitutional: Yes: Well Nourished, No Distress, Calm Eyes: Yes: Conjunctiva Clear, EOM Intact HENT: Yes: Atraumatic, Normocephalic Neck: Yes: Supple, Trachea Midline Cardiovascular: Yes: Regular Rate and Rhythm Respiratory: Yes: Cough, Diminished, Rhonchi. No: Accessory Muscle Use, Rales, SOB, SOB on Exertion, Stridor, Tachypnea, Wheezes ...Inspection: Yes: Surgical Scar ...Clubbing: No Gastrointestinal: Yes: Normal Bowel Sounds, Soft Renal/: Yes: WNL Musculoskeletal: Yes: WNL Extremities: Yes: WNL Edema: No Peripheral Pulses WNL: Yes Integumentary: Yes: WNL Neurological: Yes: WNL, Alert, Oriented ...Motor Strength: WNL Psychiatric: Yes: WNL, Alert, Oriented Labs: CBC, BMP 05/09/17 06:00 05/09/17 06:00 Imaging - Results Cat Scan: Report Reviewed, Image Reviewed Problem List - Problems (1) Breast cancer, left Code(s): C50.912 - MALIGNANT NEOPLASM OF UNSPECIFIED SITE OF LEFT FEMALE BREAST Qualifiers: Breast location: unspecified site of breast Estrogen receptor status: unspecified Patient sex: female Qualified Code(s): C50.912 - Malignant neoplasm of unspecified site of left female breast (2) Bronchitis Code(s): J40 - BRONCHITIS, NOT SPECIFIED ACUTE OR CHRONIC (3) Upper respiratory infection Code(s): J06.9 - ACUTE UPPER RESPIRATORY INFECTION, UNSPECIFIED Qualifiers: URI type: unspecified viral URI Qualified Code(s): J06.9 - Acute upper respiratory infection, unspecified; B97.89 - Other viral agents as the cause of diseases classified elsewhere; B97.89 - Other viral agents as the cause of diseases classified elsewhere Assessment/Plan Check cultures O2 as needed Can likely de-escalate ABX VTE prophylaxis No systemic steroids at this time No smoking Will follow Thank you. Dr García
[2017-05-09] MEDS ORDERED: predniSONE 5 MG TABLET (UD) PO SCH (10:00)
[2017-05-09] MEDS ORDERED: AZITHROMYCIN IVPB 500 MG in DEXTROSE 5%-WATER - 250 ML IVPB SCH (10:00)
[2017-05-09] MEDS ORDERED: predniSONE 10 MG TABLET (UD) PO SCH (10:00)
--- NOTE | 2017-05-09 10:13 | HP ---
Admitting History and Physical - Admission Chief Complaint: c/o nausea cogh 4x days temp also History of Present Illness: had 3 txs of chemo r/t pnd h/o lt lumpectomy History Source: Patient Limitations to Obtaining History: No Limitations - Past Medical History ...LMP: 02/04/17 ...: No Heme/Onc: Yes: Other (breast CA ) Musculoskeletal: Yes: Osteoarthritis Dermatology: Yes: Psoriasis (arthritis) - Smoking History Smoking history: Never smoked Have you smoked in the past 12 months: No Aproximately how many cigarettes per day: 0 - Alcohol/Substance Use Hx Alcohol Use: No Home Medications - Allergies Allergies/Adverse Reactions: Allergies Allergy/AdvReac Type Severity Reaction Status Date / Time No Known Allergies Allergy Verified 05/08/17 12:00 - Home Medications Home Medications: Ambulatory Orders Dexamethasone [Decadron -] 8 mg PO BID PRN 05/05/17 Omeprazole Magnesium [Prilosec] 20 mg PO DAILY 05/05/17 Nystatin Oral Suspension - [Nystatin Oral Susp 613393 Units/5 ML -] 500,000 units PO QID 05/09/17 Prednisone 10 mg PO DAILY 05/09/17 Family Disease History - Family Disease History Family History: Unremarkable Family Disease History: CA: Grandparent (breast ca 50's?), Mother (breast ca 50) Review of Systems - Review of Systems Constitutional: reports: Loss of Appetite HENT: reports: Other (soere throat) Neck: reports: No Symptoms Cardiovascular: reports: No Symptoms Respiratory: reports: SOB on Exertion Gastrointestinal: reports: No Symptoms Genitourinary: reports: No Symptoms Breasts: reports: No Symptoms Reported Musculoskeletal: reports: No Symptoms Integumentary: reports: No Symptoms Neurological: reports: No Symptoms Endocrine: reports: No Symptoms Hematology/Lymphatic: reports: No Symptoms Psychiatric: reports: No Symptoms Physical Examination Vital Signs: Vital Signs Temperature 98.3 F 05/09/17 05:22 Pulse Rate 99 H 05/09/17 05:22 Respiratory Rate 20 05/09/17 05:22 Blood Pressure 103/71 05/09/17 05:22 O2 Sat by Pulse Oximetry (%) 99 05/08/17 21:00 Constitutional: Yes: Well Nourished Eyes: Yes: WNL HENT: Yes: WNL Neck: Yes: WNL Cardiovascular: Yes: WNL Respiratory: Yes: Regular Gastrointestinal: Yes: WNL ...Rectal Exam: Yes: Deferred Renal/: Yes: WNL Breast(s): Yes: Left (healed) Musculoskeletal: Yes: WNL, Muscle Weakness Edema: No Peripheral Pulses WNL: Yes Integumentary: Yes: WNL Neurological: Yes: WNL ...Motor Strength: WNL Psychiatric: Yes: WNL Labs: CBC, BMP 05/09/17 06:00 05/09/17 06:00 Problem List - Problems (1) Psoriasis Code(s): L40.9 - PSORIASIS, UNSPECIFIED Assessment/Plan triamcinolone cream f/u w id and oncio chk labs in am cultures later
--- NOTE | 2017-05-09 10:34 | PN ---
Progress Note, Physician History of Present Illness: Awake, alert Report occasional dry cough No c/o chest pain/ dyspnea No fever/ chills WBC, plt lower today Cultures prelim no growth CT chest no infiltrate - Current Medication List Current Medications: Active Medications Acetaminophen (Tylenol -) 650 mg PO Q6H PRN PRN Reason: FEVER OR PAIN Atovaquone (Mepron -) 1,500 mg PO DAILY@0800 [facility] Enoxaparin Sodium (Lovenox -) 40 mg SQ DAILY [facility] Ceftriaxone Sodium 2 gm/ (Dextrose) 100 mls @ 200 mls/hr IVPB DAILY [facility] Last Admin: 05/09/17 09:52 Dose: 200 mls/hr Sodium Chloride (Normal Saline -) 1,000 mls @ 42 mls/hr IV ASDIR [facility] Last Admin: 05/08/17 18:07 Dose: 42 mls/hr Azithromycin 500 mg/ Dextrose 250 mls @ 250 mls/hr IVPB DAILY@1700 [facility] Last Admin: 05/08/17 21:52 Dose: 250 mls/hr Nystatin (Nystatin Oral Suspension -) 500,000 units PO Q6HPO [facility] Last Admin: 05/09/17 06:14 Dose: 500,000 units Pantoprazole Sodium (Protonix -) 40 mg PO DAILY [facility] Last Admin: 05/09/17 09:12 Dose: 40 mg Prednisone (Deltasone -) 10 mg PO DAILY [facility] Last Admin: 05/09/17 09:12 Dose: 10 mg Prochlorperazine Maleate (Compazine -) 10 mg PO Q8H PRN PRN Reason: NAUSEA AND/OR VOMITING Triamcinolone Acetonide (Aristocort 0.1% Cream -) 1 applic TP BID [facility] - Objective Vital Signs: Vital Signs Temperature 98.3 F 05/09/17 05:22 Pulse Rate 99 H 05/09/17 05:22 Respiratory Rate 20 05/09/17 05:22 Blood Pressure 103/71 05/09/17 05:22 O2 Sat by Pulse Oximetry (%) 99 05/08/17 21:00 Constitutional: Yes: No Distress Eyes: Yes: Conjunctiva Clear Cardiovascular: Yes: Regular Rate and Rhythm, S1, S2 Respiratory: Yes: CTA Bilaterally Gastrointestinal: Yes: Normal Bowel Sounds, Soft. No: Tenderness Edema: No Labs: CBC, BMP 05/09/17 06:00 05/09/17 06:00 INR, PTT INR 1.17 (0.82-1.09) H 05/09/17 06:00 Assessment/Plan URI, robable viral Possible non-neutropenic sepsis Breast ca s/p 3rd cycle chemo 05/04 Psoriasis on steroids Continue empiric zithromax/ceftriaxone PCP prophylaxis
[2017-05-09] MEDS: ATOVAQUONE 750 MG/5 ML (UNIT-DOSE PACKAGING) PO SCH (11:25)
[2017-05-09] MEDS: ENOXAPARIN NA (PORCINE) 40 MG/0.4 ML DISP.SYRIN SQ SCH (11:25)
[2017-05-09 11:28] LABS: TOTAL CELLS COUNTED 100
[2017-05-09 11:29] LABS: PLATELET ESTIMATE DECREASED
[2017-05-09] MEDS: SODIUM CHLORIDE 1,000 ML IV SCH ×2 (15:22→22:02)
--- NOTE | 2017-05-09 16:42 | EKG ---
Test Reason : Blood Pressure : / mmHG Vent. Rate : 087 BPM Atrial Rate : 087 BPM P-R Int : 118 ms QRS Dur : 084 ms QT Int : 366 ms P-R-T Axes : 038 006 042 degrees QTc Int : 440 ms NORMAL SINUS RHYTHM NORMAL ST AND T WAVES NORMAL ECG WHEN COMPARED WITH ECG OF 07-MAY-2017 19:09, CRITERIA FOR SEPTAL INFARCT ARE NO LONGER PRESENT Confirmed by JEREMY BAEZA MD ([id number]) on 05/09/2017 4:42:14 PM Referred By: Lowell MONTES DE OCA Confirmed By:JEREMY BAEZA MD
[2017-05-09] MEDS: AZITHROMYCIN IVPB 500 MG in DEXTROSE 5%-WATER - 250 ML IVPB SCH (17:21)
[2017-05-09] MEDS: TRIAMCINOLONE ACET 0.1% CREAM 15 GM TUBE TP SCH (22:01)
[2017-05-10] MEDS: NYSTATIN 500,000 UNITS/5 ML SUSPENSION PO SCH ×3 (05:38→17:19)
[2017-05-10 07:08] LABS: MCH 29.8 pg (25.7-33.7); MCHC 33.3 g/dl (32.0-36.0); MEAN CELL VOLUME 89.4 fl (80-96); MEAN PLT VOLUME 8.8 fl (7.5-11.1); PLATELET COUNT 118 K/MM3 (134-434); RDW 15.3 % (11.6-15.6); WHITE BLOOD COUNT 5.4 K/mm3 (4.0-10.0)
[2017-05-10 07:45] LABS: ANION GAP 6 (8-16); CALCIUM 8.8 mg/dL (8.5-10.1); CO2 31 mmol/L (21-32); CREATININE 0.5 mg/dL (0.55-1.02); GLUCOSE,RANDOM 71 mg/dL (74-106)
[2017-05-10] MEDS ORDERED: PT OWN MED DRAWER 7, Y5N ONE ×3 (07:51→09:32)
--- NOTE | 2017-05-10 08:45 | PN ---
Progress Note, Physician History of Present Illness: Awake, alert Still with occasional dry cough No c/o chest pain/ dyspnea No fever/ chills WBC 5.4 ANC yesterday approx 3.[address] chest no infiltrate - Current Medication List Current Medications: Active Medications Acetaminophen (Tylenol -) 650 mg PO Q6H PRN PRN Reason: FEVER OR PAIN Atovaquone (Mepron -) 1,500 mg PO DAILY@0800 [facility] Last Admin: 05/09/17 11:25 Dose: 1,500 mg Enoxaparin Sodium (Lovenox -) 40 mg SQ DAILY [facility] Last Admin: 05/09/17 11:25 Dose: 40 mg Ceftriaxone Sodium 2 gm/ (Dextrose) 100 mls @ 200 mls/hr IVPB DAILY [facility] Last Admin: 05/09/17 09:52 Dose: 200 mls/hr Sodium Chloride (Normal Saline -) 1,000 mls @ 42 mls/hr IV ASDIR [facility] Last Admin: 05/09/17 22:02 Dose: 42 mls/hr Azithromycin 500 mg/ Dextrose 250 mls @ 250 mls/hr IVPB DAILY@1700 [facility] Last Admin: 05/09/17 17:21 Dose: 250 mls/hr Nystatin (Nystatin Oral Suspension -) 500,000 units PO Q6HPO [facility] Last Admin: 05/10/17 05:38 Dose: 500,000 units Pantoprazole Sodium (Protonix -) 40 mg PO DAILY [facility] Last Admin: 05/09/17 09:12 Dose: 40 mg Prednisone (Deltasone -) 5 mg PO DAILY [facility] Prochlorperazine Maleate (Compazine -) 10 mg PO Q8H PRN PRN Reason: NAUSEA AND/OR VOMITING Triamcinolone Acetonide (Aristocort 0.1% Cream -) 1 applic TP BID [facility] Last Admin: 05/09/17 22:01 Dose: 1 applic - Objective Vital Signs: Vital Signs Temperature 98 F 05/10/17 06:00 Pulse Rate 88 05/10/17 06:00 Respiratory Rate 18 05/10/17 06:00 Blood Pressure 98/80 05/10/17 06:00 O2 Sat by Pulse Oximetry (%) 99 05/09/17 22:03 Constitutional: Yes: No Distress Eyes: Yes: Conjunctiva Clear Cardiovascular: Yes: Regular Rate and Rhythm, S1, S2 Respiratory: Yes: CTA Bilaterally Gastrointestinal: Yes: Normal Bowel Sounds, Soft. No: Tenderness Edema: No Integumentary: Yes: Other (port site no erythema +psoriatic lesions elbows, thighs) Labs: CBC, BMP 05/10/17 06:00 05/10/17 06:00 INR, PTT INR 1.17 (0.82-1.09) H 05/09/17 06:00 Assessment/Plan URI, probable viral Breast ca s/p 3rd cycle chemo 05/04 Psoriasis on steroids May substitute levaquin 500mg po qd x 7d PCP prophylaxis
[2017-05-10] MEDS: ATOVAQUONE 750 MG/5 ML (UNIT-DOSE PACKAGING) PO SCH (08:50)
[2017-05-10 09:00] LABS: METAMYELOCYTE 2 % (0-2); TOTAL CELLS COUNTED 100
[2017-05-10 09:01] LABS: PLATELET ESTIMATE DECREASED
[2017-05-10] MEDS: TRIAMCINOLONE ACET 0.1% CREAM 15 GM TUBE TP SCH ×2 (09:41→21:32)
[2017-05-10] MEDS: CEFTRIAXONE 2 GM in DEXTROSE 5%-WATER - 100 ML IVPB SCH (09:42)
[2017-05-10] MEDS: PANTOPRAZOLE 40 MG TABLET (FP) PO SCH (09:42)
[2017-05-10] MEDS: predniSONE 10 MG TABLET (UD) PO SCH (09:42)
[2017-05-10] MEDS: ENOXAPARIN NA (PORCINE) 40 MG/0.4 ML DISP.SYRIN SQ SCH (09:44)
--- NOTE | 2017-05-10 09:57 | CONSULT ---
Consult Consult Specialty:: Rheumatology - History of Present Illness History of Present Illness: 42 chari old female with history of left breast cancer, stage I, poorly differentiated, ER +, NE+, HER2 neg, C1 D5 on taxotere/cytoxan. s/p neulasta and history of psoriatic arthritis admitted with cough and fever. HPI Few days prior to admission the patiernt developed productive cough and fever. Since admission she has not have fever and cough imrproved. CT scan of the chest: minimal LLL discoid atelectasis and small pericardial effusion. Psoriatic arthritis. 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 She was started on Methotrexate and Remicade with good response. 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 She discontinued both medications resulting in flare-up mainly of the skin disease and she has had intermittent episodes of joint pain and swelling mainly of toes. She was started on Otezla on 2015 resulting in partial improvement. On December 2016 when she was diagnosed with breast cancer she discontinued Otezla and since then she has been controlled with Prednisone 10 mg/d. At the present time she reports progression of psoriatic plaques and denies significant joint pain. - History Source History Provided By: Patient, Medical Record Limitations to Obtaining History: No Limitations - Past Medical History ...LMP: 02/04/17 ...: No Rheumatology: Yes: Other (See HPI) Dermatology: Yes: Psoriasis (arthritis) - Alcohol/Substance Use Hx Alcohol Use: No - Smoking History Smoking history: Never smoked Have you smoked in the past 12 months: No Aproximately how many cigarettes per day: 0 Home Medications - Allergies Allergies/Adverse Reactions: Allergies Allergy/AdvReac Type Severity Reaction Status Date / Time No Known Allergies Allergy Verified 05/08/17 12:00 - Home Medications Home Medications: Ambulatory Orders Dexamethasone [Decadron -] 8 mg PO BID PRN 05/05/17 Omeprazole Magnesium [Prilosec] 20 mg PO DAILY 05/05/17 Nystatin Oral Suspension - [Nystatin Oral Susp 403335 Units/5 ML -] 500,000 units PO QID 05/09/17 Prednisone 10 mg PO DAILY 05/09/17 Family Disease History - Family Disease History Family Disease History: CA: Grandparent (breast ca 50's?), Mother (breast ca 50) , Other: Father (Father has psoriasis) Review of Systems - Review of Systems Constitutional: reports: Malaise Eyes: reports: No Symptoms HENT: reports: No Symptoms Neck: reports: No Symptoms Cardiovascular: reports: No Symptoms Respiratory: reports: Cough Gastrointestinal: reports: No Symptoms Genitourinary: denies: No Symptoms Physical Exam Vital Signs: Vital Signs Temperature 98 F 05/10/17 06:00 Pulse Rate 88 05/10/17 06:00 Respiratory Rate 18 05/10/17 06:00 Blood Pressure 98/80 05/10/17 06:00 O2 Sat by Pulse Oximetry (%) 99 05/09/17 22:03 Constitutional: Yes: Mild Distress Eyes: Yes: WNL HENT: Yes: WNL Neck: Yes: WNL Cardiovascular: Yes: WNL Respiratory: Yes: WNL Gastrointestinal: Yes: WNL Musculoskeletal: Yes: Other (No active joints) Integumentary: Yes: Other (Psoriatic plaques in scalp, arms and thighs) Labs: CBC, BMP 05/10/17 06:00 05/10/17 06:00 Laboratory Tests 05/08/17 15:16 Urine Color Straw Urine Appearance Clear Urine pH 6.0 Ur Specific [place] 1.006 Urine Protein Negative Urine Glucose (UA) Negative Urine Ketones Negative Urine Blood 1+ H Urine Nitrite Negative Urine Bilirubin Negative Urine Urobilinogen Negative Ur Leukocyte Esterase Trace H Ur Epithelial Cells Rare Problem List - Problems (1) Psoriatic arthritis Assessment/Plan: Psoriatic arthritis, At the present time on Prednisone 10 mg/d. Skin disease active and no active joints. Plan: The patient has one more set of chemotherapy scheduled for May 25. I indicated to the patient she should try to decrease Pednisone and add Otezla and possibly methotrexate, which I would prescribe in coordination with Dr. Sr. At the present time I suggest to continue with the same dose of Prednisone and I will follow her as outpatient. Thanks. Code(s): L40.50 - ARTHROPATHIC PSORIASIS, UNSPECIFIED
--- NOTE | 2017-05-10 12:26 | PN ---
Progress Note (short form) - Note Progress Note: PULMONARY VSS/AFEBRILE COUGH IS LESS BUT STILL PRESENT ANICTERIC RIGHT POSTERIOR MID LUNG FIELD EXP WHEEZE S1S2 BS+ NO EDEMA LABS/CT/CXR/MEDS/NOTES/MICRO REVIEWED (1) Breast cancer, left Code(s): C50.912 - MALIGNANT NEOPLASM OF UNSPECIFIED SITE OF LEFT FEMALE BREAST Qualifiers: Breast location: unspecified site of breast Estrogen receptor status: unspecified Patient sex: female Qualified Code(s): C50.912 - Malignant neoplasm of unspecified site of left female breast (2) Bronchitis Code(s): J40 - BRONCHITIS, NOT SPECIFIED ACUTE OR CHRONIC (3) Upper respiratory infection Code(s): J06.9 - ACUTE UPPER RESPIRATORY INFECTION, UNSPECIFIED Qualifiers: URI type: unspecified viral URI Qualified Code(s): J06.9 - Acute upper respiratory infection, unspecified; B97.89 - Other viral agents as the cause of diseases classified elsewhere; B97.89 - Other viral agents as the cause of diseases classified elsewhere CONTINUE CURRENT LINE OF TREATMENT TRIAL ANNABELLE VIA NEB COUGH SUPPRESSANT Татьяна SULLIVAN MD
--- NOTE | 2017-05-10 12:49 | PN ---
Progress Note (short form) - Note Progress Note: Oncology Progress Note: Patient seen and examined. all consults notes reviewed. She c/o cough but unable to bring up sputum, feels a bit tired. O/E HEENT: CHUYITA, EOM Intact Oropharynx:+ thrush Breasts: Without masses Cor: RSR, No murmurs, No gallops Lungs: Clear to P&A Abd: Soft, Normal bowel sounds, No organomegaly Ext:No significant edema psoriasis skin lesions stable--stable CBC, BMP 05/10/17 06:00 05/10/17 06:00 Current Medications Generic Name Dose Route Start Last Admin Trade Name Freq PRN Reason Stop Dose Admin Acetaminophen 650 mg 05/08/17 20:40 Tylenol - PO Q6H PRN FEVER OR PAIN Albuterol Sulfate 1 amp 05/10/17 12:30 Ventolin 0.083% Nebulizer Soln - NEB TIDR MORALES Atovaquone 1,500 mg 05/09/17 11:00 05/10/17 08:50 Mepron - PO 1,500 mg DAILY@0800 [facility] Administration Enoxaparin Sodium 40 mg 05/09/17 10:30 05/10/17 09:44 Lovenox - SQ 40 mg DAILY [facility] Administration Ceftriaxone Sodium 2 gm/ 100 mls @ 200 mls/hr 05/08/17 15:00 05/10/17 09:42 Dextrose IVPB 200 mls/hr DAILY [facility]AL[facility] Administration Sodium Chloride 1,000 mls @ 42 mls/hr 05/08/17 18:00 05/09/17 22:02 Normal Saline - IV 42 mls/hr ASDIR MORALES Administration Azithromycin 500 mg/ Dextrose 250 mls @ 250 mls/hr 05/08/17 22:00 05/09/17 17 :21 IVPB 250 mls/hr DAILY@1700 MORALES Administration Nystatin 500,000 units 05/08/17 17:00 05/10/17 12:18 Nystatin Oral Suspension - PO 500,000 units Q6HPO [facility]ALES Administration Pantoprazole Sodium 40 mg 05/09/17 10:00 05/10/17 09:42 Protonix - PO 40 mg DAILY [facility] Administration Prednisone 5 mg 05/10/17 10:00 05/10/17 09:42 Deltasone - PO 5 mg DAILY [facility] Administration Prochlorperazine Maleate 10 mg 05/08/17 16:49 Compazine - PO Q8H PRN NAUSEA AND/OR VOMITING Triamcinolone Acetonide 1 applic 05/09/17 22:00 05/10/17 09:41 Aristocort 0.1% Cream - TP 1 applic BID MORALES Administration Last Vital Signs Temp Pulse Resp BP Pulse Ox 98.0 F 93 H 18 116/64 98 05/10/17 09:00 05/10/17 09:00 05/10/17 09:00 05/10/17 09:00 05/10/17 09:00 Assessment/Plan: Stage I poorly differentiated left Breast IDC ER positive, SD positive, HER2 negative, s/p C3 TC on 05/04 Viral Uri/Bronchitis Psoriasis cough Plan: -monitor counts, today stable. -Appreciate ID c/s. Recommended to change to levaquin. -Psoriasis: on prednisone. seen by Rheum. Now on prednisone 5mg. -Nebs. -ECHO reviewed. -DVT ppx will follow
--- NOTE | 2017-05-10 13:35 | PN ---
Progress Note, Physician Chief Complaint: weak only less cough vss no temp wbc ok on steroids? ? d/c in am po atx to be given from onco they will do discharge i spojke to them - Current Medication List Current Medications: Active Medications Acetaminophen (Tylenol -) 650 mg PO Q6H PRN PRN Reason: FEVER OR PAIN Albuterol Sulfate (Ventolin 0.083% Nebulizer Soln -) 1 amp NEB TIDR [facility] Atovaquone (Mepron -) 1,500 mg PO DAILY@0800 [facility] Last Admin: 05/10/17 08:50 Dose: 1,500 mg Enoxaparin Sodium (Lovenox -) 40 mg SQ DAILY [facility] Last Admin: 05/10/17 09:44 Dose: 40 mg Ceftriaxone Sodium 2 gm/ (Dextrose) 100 mls @ 200 mls/hr IVPB DAILY [facility] Last Admin: 05/10/17 09:42 Dose: 200 mls/hr Sodium Chloride (Normal Saline -) 1,000 mls @ 42 mls/hr IV ASDIR [facility] Last Admin: 05/09/17 22:02 Dose: 42 mls/hr Azithromycin 500 mg/ Dextrose 250 mls @ 250 mls/hr IVPB DAILY@1700 [facility] Last Admin: 05/09/17 17:21 Dose: 250 mls/hr Nystatin (Nystatin Oral Suspension -) 500,000 units PO Q6HPO [facility] Last Admin: 05/10/17 12:18 Dose: 500,000 units Pantoprazole Sodium (Protonix -) 40 mg PO DAILY [facility] Last Admin: 05/10/17 09:42 Dose: 40 mg Prednisone (Deltasone -) 5 mg PO DAILY [facility] Last Admin: 05/10/17 09:42 Dose: 5 mg Prochlorperazine Maleate (Compazine -) 10 mg PO Q8H PRN PRN Reason: NAUSEA AND/OR VOMITING Triamcinolone Acetonide (Aristocort 0.1% Cream -) 1 applic TP BID [facility] Last Admin: 05/10/17 09:41 Dose: 1 applic - Objective Vital Signs: Vital Signs Temperature 98.0 F 05/10/17 09:00 Pulse Rate 93 H 05/10/17 09:00 Respiratory Rate 18 05/10/17 09:00 Blood Pressure 116/64 05/10/17 09:00 O2 Sat by Pulse Oximetry (%) 98 05/10/17 09:00 Labs: CBC, BMP 05/10/17 06:00 05/10/17 06:00 INR, PTT INR 1.17 (0.82-1.09) H 05/09/17 06:00 Problem List - Problems (1) Psoriasis Code(s): L40.9 - PSORIASIS, UNSPECIFIED
[2017-05-10] MEDS: SODIUM CHLORIDE 1,000 ML IV SCH ×2 (15:43→19:51)
[2017-05-10] MEDS: AZITHROMYCIN IVPB 500 MG in DEXTROSE 5%-WATER - 250 ML IVPB SCH (16:37)
[2017-05-10] MEDS: ALBUTEROL SO4 0.083% IH SOL 2.5 MG/3 ML VIAL.NEB. NEB SCH (22:21)
[2017-05-11] MEDS: NYSTATIN 500,000 UNITS/5 ML SUSPENSION PO SCH ×2 (00:57→06:26)
[2017-05-11] MEDS: ALBUTEROL SO4 0.083% IH SOL 2.5 MG/3 ML VIAL.NEB. NEB SCH (07:09)
[2017-05-11 07:26] LABS: ALBUMIN 3.2 g/dl (3.4-5.0); ANION GAP 7 (8-16); CALCIUM 8.6 mg/dL (8.5-10.1); CO2 30 mmol/L (21-32); GLUCOSE,RANDOM 78 mg/dL (74-106)
[2017-05-11 07:32] LABS: ALK PHOS 95 U/L (45-117); BILIRUBIN,TOTAL 0.5 mg/dL (0.2-1.0); CREATININE 0.5 mg/dL (0.55-1.02); SGOT/AST 10 U/L (15-37); SGPT/ALT 21 U/L (12-78); TOT PROT 6.2 g/dl (6.4-8.2)
[2017-05-11 08:16] LABS: MCH 29.9 pg (25.7-33.7); MCHC 33.5 g/dl (32.0-36.0); MEAN CELL VOLUME 89.3 fl (80-96); MEAN PLT VOLUME 8.9 fl (7.5-11.1); PLATELET COUNT 166 K/MM3 (134-434); RDW 15.3 % (11.6-15.6); WHITE BLOOD COUNT 15.4 K/mm3 (4.0-10.0)
[2017-05-11] MEDS ORDERED: PT OWN MED DRAWER 7, Y5N ONE (09:00)
[2017-05-11] MEDS: ATOVAQUONE 750 MG/5 ML (UNIT-DOSE PACKAGING) PO SCH (09:07)
[2017-05-11] MEDS: PANTOPRAZOLE 40 MG TABLET (FP) PO SCH (09:07)
[2017-05-11] MEDS: predniSONE 10 MG TABLET (UD) PO SCH (09:07)
[2017-05-11] MEDS: TRIAMCINOLONE ACET 0.1% CREAM 15 GM TUBE TP SCH (09:09)
[2017-05-11] MEDS: ENOXAPARIN NA (PORCINE) 40 MG/0.4 ML DISP.SYRIN SQ SCH (09:10)
--- NOTE | 2017-05-11 09:45 | PN ---
Progress Note, Physician - Current Medication List Current Medications: Active Medications Acetaminophen (Tylenol -) 650 mg PO Q6H PRN PRN Reason: FEVER OR PAIN Albuterol Sulfate (Ventolin 0.083% Nebulizer Soln -) 1 amp NEB TIDR [facility] Last Admin: 05/11/17 07:09 Dose: 1 amp Atovaquone (Mepron -) 1,500 mg PO DAILY@0800 [facility] Last Admin: 05/11/17 09:07 Dose: 1,500 mg Enoxaparin Sodium (Lovenox -) 40 mg SQ DAILY [facility] Last Admin: 05/11/17 09:10 Dose: 40 mg Ceftriaxone Sodium 2 gm/ (Dextrose) 100 mls @ 200 mls/hr IVPB DAILY [facility] Last Admin: 05/10/17 09:42 Dose: 200 mls/hr Sodium Chloride (Normal Saline -) 1,000 mls @ 42 mls/hr IV ASDIR [facility] Last Admin: 05/10/17 19:51 Dose: Not Given Azithromycin 500 mg/ Dextrose 250 mls @ 250 mls/hr IVPB DAILY@1700 [facility] Last Admin: 05/10/17 16:37 Dose: 250 mls/hr Nystatin (Nystatin Oral Suspension -) 500,000 units PO Q6HPO [facility] Last Admin: 05/11/17 06:26 Dose: 500,000 units Pantoprazole Sodium (Protonix -) 40 mg PO DAILY [facility] Last Admin: 05/11/17 09:07 Dose: 40 mg Prednisone (Deltasone -) 5 mg PO DAILY [facility] Last Admin: 05/11/17 09:07 Dose: 5 mg Prochlorperazine Maleate (Compazine -) 10 mg PO Q8H PRN PRN Reason: NAUSEA AND/OR VOMITING Triamcinolone Acetonide (Aristocort 0.1% Cream -) 1 applic TP BID [facility] Last Admin: 05/11/17 09:09 Dose: 1 applic - Objective Vital Signs: Vital Signs Temperature 98.2 F 05/11/17 06:00 Pulse Rate 94 H 05/11/17 06:00 Respiratory Rate 20 05/11/17 06:00 Blood Pressure 100/53 05/11/17 06:00 O2 Sat by Pulse Oximetry (%) 100 05/10/17 21:00 Labs: CBC, BMP 05/11/17 06:00 05/11/17 06:00 INR, PTT INR 1.17 (0.82-1.09) H 05/09/17 06:00 Problem List - Problems (1) Psoriasis Code(s): L40.9 - PSORIASIS, UNSPECIFIED Assessment/Plan pt in recovery period keep in mind on steroids d/c today f/u w me x3 days and onco vss
--- NOTE | 2017-05-11 09:58 | DS ---
Physical Examination Vital Signs: Vital Signs Temperature 98.2 F 05/11/17 06:00 Pulse Rate 94 H 05/11/17 06:00 Respiratory Rate 20 05/11/17 06:00 Blood Pressure 100/53 05/11/17 06:00 O2 Sat by Pulse Oximetry (%) 100 05/10/17 21:00 Constitutional: Yes: Well Nourished, No Distress, Calm Eyes: Yes: Conjunctiva Clear HENT: Yes: Atraumatic, Normocephalic Neck: Yes: Supple Cardiovascular: Yes: Regular Rate and Rhythm Respiratory: Yes: Regular, CTA Bilaterally Gastrointestinal: Yes: Normal Bowel Sounds Edema: No Labs: CBC, BMP 05/11/17 06:00 05/11/17 06:00 Discharge Summary Reason For Visit: SEPSIS Current Active Problems Psoriasis (Acute) Psoriatic arthritis (Acute) Hospital Course: Patient was admitted for a possible bronchitis. She has a h/o Stage I Poorly differentiated Breast cancer for which she is on adjuvant chemotherapy TC She completed three cycles as of 05/04 On admission she also had nausea. She responded to compazine. Due to her psoriatic flare for which she is on Prednisone was dropped to 5mg during her course and she was seen by Rheumatology She was seen by Rheum/ID/Pulm. On day of discharge she is stable with stable counts, cough improved and being discharged on po antibiotics. She was advised to follow-up with PMD next week and she will call our office on Monday for a follow-up early next week. Advised to keep herself hydrating. Condition: Stable - Instructions Disposition: HOME - Home Medications Comprehensive Discharge Medication List: Ambulatory Orders Prednisone 5mg daily Omeprazole Magnesium [Prilosec] 20 mg PO DAILY 05/05/17 Nystatin Oral Suspension - [Nystatin Oral Susp 409796 Units/5 ML -] 500,000 units PO QID 05/09/17 Levaquin 500mg daily for 7 days from 05/11/2017 Mepron 750mg daily
--- NOTE | 2017-05-11 10:10 | PN ---
Progress Note (short form) - Note Progress Note: Oncology Progress Note: Patient seen and examined. all consults notes reviewed. she said she has slept well through the night, feeling "good". Cough improved. O/E HEENT: CHUYITA, EOM Intact Oropharynx:no thrush Breasts: Without masses Cor: RSR, No murmurs, No gallops Lungs: Clear to P&A Abd: Soft, Normal bowel sounds, No organomegaly Ext:No significant edema psoriasis skin lesions stable--stable Last Vital Signs Temp Pulse Resp BP Pulse Ox 98.2 F 94 H 20 100/53 100 05/11/17 06:00 05/11/17 06:00 05/11/17 06:00 05/11/17 06:00 05/10/17 21:00 CBC, BMP 05/11/17 06:00 05/11/17 06:00 Current Medications Generic Name Dose Route Start Last Admin Trade Name Freq PRN Reason Stop Dose Admin Acetaminophen 650 mg 05/08/17 20:40 Tylenol - PO Q6H PRN FEVER OR PAIN Albuterol Sulfate 1 amp 05/10/17 12:30 05/11/17 07:09 Ventolin 0.083% Nebulizer Soln - NEB 1 amp TIDR [facility] Administration Atovaquone 1,500 mg 05/09/17 11:00 05/11/17 09:07 Mepron - PO 1,500 mg DAILY@0800 [facility] Administration Enoxaparin Sodium 40 mg 05/09/17 10:30 05/11/17 09:10 Lovenox - SQ 40 mg DAILY [facility] Administration Sodium Chloride 1,000 mls @ 42 mls/hr 05/08/17 18:00 05/10/17 19:51 Normal Saline - IV Not Given ASDIR [facility] Levofloxacin 500 mg 05/11/17 10:30 Levaquin - PO 05/11/17 10:31 ONCE ONE Nystatin 500,000 units 05/08/17 17:00 05/11/17 06:26 Nystatin Oral Suspension - PO 500,000 units Q6HPO [facility] Administration Pantoprazole Sodium 40 mg 05/09/17 10:00 05/11/17 09:07 Protonix - PO 40 mg DAILY [facility] Administration Prednisone 5 mg 05/10/17 10:00 05/11/17 09:07 Deltasone - PO 5 mg DAILY [facility] Administration Prochlorperazine Maleate 10 mg 05/08/17 16:49 Compazine - PO Q8H PRN NAUSEA AND/OR VOMITING Triamcinolone Acetonide 1 applic 05/09/17 22:00 05/11/17 09:09 Aristocort 0.1% Cream - TP 1 applic BID [facility] Administration Assessment/Plan: Stage I poorly differentiated left Breast IDC ER positive, [place] positive, HER2 negative, s/p C3 TC on 05/04 Viral Uri/Bronchitis Psoriasis cough Plan: -counts stable, White count likely recovering -levaquin prior to going home -continue with prednisone 5mg. -c/w mepron d.c planning Instructions given.
--- NOTE | 2017-05-11 10:15 | PN ---
Progress Note (short form) - Note Progress Note: PULMONARY VSS/AFEBRILE COUGH IS LESS AFTER NEBS ANICTERIC CLEAR S1S2 BS+ NO EDEMA LABS/CT/CXR/MEDS/NOTES/MICRO REVIEWED (1) Breast cancer, left Code(s): C50.912 - MALIGNANT NEOPLASM OF UNSPECIFIED SITE OF LEFT FEMALE BREAST Qualifiers: Breast location: unspecified site of breast Estrogen receptor status: unspecified Patient sex: female Qualified Code(s): C50.912 - Malignant neoplasm of unspecified site of left female breast (2) Bronchitis Code(s): J40 - BRONCHITIS, NOT SPECIFIED ACUTE OR CHRONIC (3) Upper respiratory infection Code(s): J06.9 - ACUTE UPPER RESPIRATORY INFECTION, UNSPECIFIED Qualifiers: URI type: unspecified viral URI Qualified Code(s): J06.9 - Acute upper respiratory infection, unspecified; B97.89 - Other viral agents as the cause of diseases classified elsewhere; B97.89 - Other viral agents as the cause of diseases classified elsewhere ANNABELLE OUTPATIENT MAY BENEFIT COUGH SUPPRESSANT OK TO DISCHARGE Татьяна SULLIVAN MD
[2017-05-11] MEDS ORDERED: LEVOFLOXACIN 500 MG TABLET (FP) PO ONE (10:30)
[2017-05-11 10:33] LABS: TOTAL CELLS COUNTED 100
[2017-05-11 10:36] LABS: METAMYELOCYTE 3 % (0-2); MYELOCYTE 3 % (0-2); REACTIVE LYMPHOCYTES 4 % (0-80)
[2017-05-11 10:37] LABS: PLATELET ESTIMATE ADEQUATE
[2017-05-11 10:41] VITALS: BP 112/70; PULSE 101; TEMP 98.3
== END 2017-05-11 11:28 | disposition home or self-care (01) | DRG 153 ==
LOC: JER 11:57 → JERBED 14:15 → J7W 17:20
PROVIDERS: ADMIT Family Medicine; ATTEND Family Medicine
DX: J06.9 Acute upper respiratory infection, unspecified (principal); B37.89 Other sites of candidiasis; J98.11 Atelectasis; I31.3 Pericardial effusion (noninflammatory); E87.6 Hypokalemia; C50.912 Malignant neoplasm of unspecified site of left female breast; Z17.0 Estrogen receptor positive status [ER+]; M19.90 Unspecified osteoarthritis, unspecified site; B97.89 Other viral agents as the cause of diseases classified elsewhere; L40.50 Arthropathic psoriasis, unspecified; J40 Bronchitis, not specified as acute or chronic; R50.9 Fever, unspecified
CPT/HCPCS: 36415; 71250-TC; 80048; 80053; 81003; 81015; 82550; 82803; 83605; 83735; 84484; 84703; 85025; 85610; 85730; 86850; 86900; 86901; 87040; 87086; 93005; 93010; 93306-TC; 94640; 99282-25

== ENCOUNTER 2017-06-15 09:57 | Day surgery (SDC) | payer OTHER, BC ==
[2017-06-09 14:39] VITALS: BMI 21.4
--- NOTE | 2017-06-14 09:24 | HP ---
Admitting History and Physical - Primary Care Physician PCP: Jimbo Santiago - Admission Chief Complaint: Left breast cancer S/P chemotherapy History of Present Illness: 42 year old premanapausal female diagnosed with left breast cancer 12/2016 invasive ductal carcinoma ER /[place] positive HER 2 neg.She underwent a left breast wide excision and reexcision for positive margin. She finifshed chemotherapy and is here for port removal. History Source: Patient Limitations to Obtaining History: No Limitations - Past Medical History ...LMP: 04/13/17 Heme/Onc: Yes: Other (breast CA ) Musculoskeletal: Yes: Osteoarthritis Rheumatology: Yes: Other (psoriatic arthritis) Dermatology: Yes: Psoriasis (arthritis) - Past Surgical History Additional Past Surgical History: Left breast wide excison sentenel node bx and reexcision 12/2016 and 01/2017 Chemotherapy fininshed invasive diuctal ca - Smoking History Smoking history: Never smoked Have you smoked in the past 12 months: No Aproximately how many cigarettes per day: 0 - Alcohol/Substance Use Hx Alcohol Use: No Home Medications - Allergies Allergies/Adverse Reactions: Allergies Allergy/AdvReac Type Severity Reaction Status Date / Time No Known Allergies Allergy Verified 05/08/17 12:00 - Home Medications Home Medications: Ambulatory Orders Omeprazole Magnesium [Prilosec] 20 mg PO DAILY 05/05/17 Atovaquone [Mepron -] 10 ml PO DAILY 06/09/17 Prednisone 5 mg PO DAILY 06/09/17 Family Disease History - Family Disease History Family Disease History: CA: Grandparent (breast ca 50's?), Mother (breast ca 50) , Other: Father (Father has psoriasis) Physical Examination Constitutional: Yes: Well Nourished Breast(s): Yes: Other (Healed left breast incision no recurrnce or adenopathy. right breast negative) Problem List - Problems (1) Breast cancer, left Code(s): C50.912 - MALIGNANT NEOPLASM OF UNSPECIFIED SITE OF LEFT FEMALE BREAST Qualifiers: Breast location: unspecified site of breast Estrogen receptor status: unspecified Patient sex: female Qualified Code(s): C50.912 - Malignant neoplasm of unspecified site of left female breast Assessment/Plan Life port removal
[2017-06-15] MEDS ORDERED: LIDOCAINE HCL 1%, 10 MG/ML (20ML VIAL) ONE ×2 (11:37→11:38)
[2017-06-15] MEDS ORDERED: MIDAZOLAM HCL 2 MG/2 ML SINGLE DOSE VIAL ONE (11:51)
[2017-06-15] MEDS ORDERED: PROPOFOL 20 ML ONE (12:01)
[2017-06-15] MEDS ORDERED: ONDANSETRON 4 MG/2 ML VIAL ONE (12:04)
[2017-06-15] MEDS ORDERED: DEXAMETHASONE SOD PHOSPHATE 4 MG/1 ML VIAL ONE (12:04)
[2017-06-15] MEDS ORDERED: LIDOCAINE HCL 1%, 10 MG/ML (20ML VIAL) INF ONE ×3 (12:14)
[2017-06-15] MEDS ORDERED: ONDANSETRON 4 MG/2 ML VIAL IVPUSH PRN (12:26)
[2017-06-15] MEDS ORDERED: KETOROLAC TROMETHAMINE 30 MG/1 ML VIAL IVPUSH PRN (12:26)
[2017-06-15] MEDS ORDERED: DEXTROSE 5%-0.45% SALINE 1,000 ML IV SCH (12:30)
[2017-06-15] MEDS ORDERED: KETOROLAC TROMETHAMINE 30 MG/1 ML VIAL ONE (13:01)
[2017-06-15 13:47] VITALS: BP 102/56; PULSE 77; TEMP 98.1
--- NOTE | 2017-06-15 17:42 | OP ---
DATE OF OPERATION: 06/15/2017 PREOPERATIVE DIAGNOSIS: Left breast cancer, upper outer quadrant, status post chemotherapy. POSTOPERATIVE DIAGNOSIS: Left breast cancer, upper outer quadrant, status post chemotherapy. PROCEDURE: Removal of a right side subclavian vein single-lumen Port-A-Cath. ANESTHESIA: Local with IV sedation. SURGEON: Dewayne Santiago MD GETTER WELDER: CAITLIN Garduno COMPLICATIONS: None. Briefly, the patient is a 42-year-old, G2, P2, premenopausal female, descent, who noted a density towards the upper outer aspect of the left breast in November 2016. Mammography and ultrasound showed a suspicious density in the 2 o'clock region, and core biopsy showed a poorly differentiated invasive duct cancer which was ER/MO positive and HER2/shelly negative with a high proliferative index. She underwent the left breast partial mastectomy and sentinel lymph node biopsy in January 2017 and had a 1.4-cm poorly differentiated cancer with 1 negative sentinel lymph node. She required re-excision for negative margins. She underwent chemotherapy through Dr. Sr and finished in April 2017 and is currently on tamoxifen. She underwent radiation therapy. She now presents for a right-sided Port-A-Cath removal. The patient was brought in through Ambulatory Surgery on June 15, 2017. In the holding area, site verification was made, and informed consent was obtained. DESCRIPTION OF PROCEDURE: She was brought into the operating room, laid on the OR table in the supine position. Venodynes were placed on the lower extremities. She underwent IV sedation, and the upper right chest wall was sterilely prepped and draped in usual fashion. Lidocaine 1% was given directly over the Port-A-Cath chamber. The previous incision was excised through a small elliptical incision, and dissection was undertaken around the Port-A-Cath chamber which was completely excised from the surrounding tissue. It was removed intact with the entire catheter and sent to Pathology as specimen. Hemostasis was achieved. The capsule around the Port-A-Cath was completely removed and sent with the Port-A-Cath to Pathology in formalin. Hemostasis was achieved. The wound was closed using interrupted 3-0 deep dermal Vicryl suture and a running 4-0 subcuticular Biosyn suture. Mastisol and Steri-Strips were applied over the wound with a compressive dressing placed over this. Patient tolerated the procedure well, without difficulty, was awake and alert at the end of the procedure, and brought back to Ambulatory Surgery postoperatively. She will be discharged home the same day. All sponge and needle counts were correct at the end of the case, and estimated blood loss was minimal. DEWAYNE SANTIAGO M.D. [id number]
--- NOTE | 2017-06-20 11:59 | PATH ---
Surgical Pathology Report Patient Name: KELVIN VARGAS Med. Rec. #: [id number] /Age/Gender: 1975 (Age: 42) / F Account: [id number] Location: [facility] Taken: 06/15/2017 Received: 06/15/2017 Reported: 06/20/2017 Physicians: Jimbo Santiago M.D. Specimen(s) Received LIFE PORT CAPSULE Clinical History Breast cancer Final Diagnosis SOFT TISSUE, SITE NOT SPECIFIED, EXCISION: BENIGN FIBROUS TISSUE WITH CHRONIC INFLAMMATION AND FOREIGN BODY REACTION. FORENSICS ANALYST CONSISTENT WITH INFUSION PORT PRESENT (GROSS ONLY). Comment: Also see prior specimen [id number]. Electronically Signed Emory Franco M.D. Gross Description Received in formalin labeled "life port and capsule," is a 2.6 x 2.4 x 1.3 cm purple, triangular portion of metallic hardware, consistent with a port. The port displays a 20 cm in length portion of tubing extending from one aspect. Also received within the same container is a 2.4 x 2.0 x 0.3 cm portion of coto-pink fibromembranous tissue with attached fat, consistent with a capsule. The capsule is sectioned and entirely submitted in one cassette. 06/16/201706/16/2017
== END 2017-06-15 13:40 | disposition home or self-care (01) ==
LOC: FASU 09:57
PROVIDERS: ATTEND Surgery Surgical Oncology
PROC: 0JPV0WZ Removal of Totally Implantable Vascular Access Device from Upper Extremity Subcutaneous Tissue and Fascia, Open Approach (ICD-10-PCS; principal; 2017-06-15 12:09)
DX: C50.412 Malignant neoplasm of upper-outer quadrant of left female breast (principal)
CPT/HCPCS: 84703; 88304-TC

== ENCOUNTER 2018-03-22 07:31 | Day surgery (SDC) | payer BC, OTHER ==
[2018-03-22] MEDS ORDERED: GOSERELIN ACETATE 3.6 MG IMPLANT SYRINGE SQ ONE (10:00)
[2018-03-22] MEDS ORDERED: LIDOCAINE HCL 1%, 10 MG/ML (20ML VIAL) ID ONE (10:00)
[2018-03-22 16:12] LABS: BASO % 0.3 % (0-2.0); EOS % 3.8 % (0-4.5); HEMATOCRIT 36.4 % (32.4-45.2); HEMOGLOBIN 12.1 GM/dL (10.7-15.3); LYMPH % 35.4 % (8-40); MCH 30.8 pg (25.7-33.7); MCHC 33.4 g/dl (32.0-36.0); MEAN CELL VOLUME 92.3 fl (80-96); MEAN PLT VOLUME 8.7 fl (7.5-11.1); MONO % 10.5 % (3.8-10.2); PLATELET COUNT 226 K/MM3 (134-434); RBC 3.94 M/mm3 (3.60-5.2); RDW 13.4 % (11.6-15.6)
[2018-03-22 16:32] LABS: ALBUMIN 3.7 g/dl (3.4-5.0); ALK PHOS 78 U/L (45-117); ANION GAP 4 MMOL/L (8-16); BILIRUBIN,TOTAL 0.5 mg/dL (0.2-1); BLOOD UREA NITROGEN 8 mg/dL (7-18); CALCIUM 9.2 mg/dL (8.5-10.1); CHLORIDE 106 mmol/L (98-107); CO2 28 mmol/L (21-32); CREATININE 0.6 mg/dL (0.55-1.3); GLUCOSE,RANDOM 67 mg/dL (74-106); POTASSIUM 3.6 mmol/L (3.5-5.1); SGOT/AST 12 U/L (15-37); SGPT/ALT 17 U/L (13-61); SODIUM 137 mmol/L (136-145); TOT PROT 7.4 g/dl (6.4-8.2)
[2018-03-22 16:45] LABS: MAGNESIUM 1.9 mg/dL (1.8-2.4)
[2018-03-22] MEDS ORDERED: LIDOCAINE 1% P/F 10 MG/ML VIAL SQ ONE (16:51)
[2018-03-22 18:07] VITALS: BP 121/44; PULSE 75; TEMP 98.1
[2018-03-24 06:09] LABS: FOLLICLE STIMULATING HORMONE 3.9 mIU/mL (.); LUTEINIZING HORMONE 0.2 mIU/mL (.)
== END 2018-03-22 17:00 | disposition home or self-care (01) ==
LOC: JONCCHEMO 07:31 → J7W 16:25 → JONCCHEMO 17:00
PROVIDERS: ATTEND Internal Medicine Hematology & Oncology
DX: Z51.11 Encounter for antineoplastic chemotherapy (principal); C50.411 Malignant neoplasm of upper-outer quadrant of right female breast
CPT/HCPCS: 36415; 80053; 82670; 83001; 83002; 83735; 84703; 85025; 96402; J9202

== ENCOUNTER 2018-04-19 07:30 | Day surgery (SDC) | payer BC, OTHER ==
[2018-04-19] MEDS ORDERED: LIDOCAINE HCL 1%, 10 MG/ML (20ML VIAL) ID ONE (10:00)
[2018-04-19] MEDS ORDERED: GOSERELIN ACETATE 3.6 MG IMPLANT SYRINGE SQ ONE (10:00)
[2018-04-19 16:02] LABS: BASO % 0.4 % (0-2.0); EOS % 1.6 % (0-4.5); HEMATOCRIT 36.3 % (32.4-45.2); HEMOGLOBIN 12.1 GM/dL (10.7-15.3); LYMPH % 31.5 % (8-40); MCH 30.4 pg (25.7-33.7); MCHC 33.4 g/dl (32.0-36.0); MONO % 8.3 % (3.8-10.2); NEUT % 58.2 % (42.8-82.8); PLATELET COUNT 212 K/MM3 (134-434); RBC 3.99 M/mm3 (3.60-5.2); RDW 13.2 % (11.6-15.6); WHITE BLOOD COUNT 5.3 K/mm3 (4.0-10.0)
[2018-04-19 16:35] LABS: ALBUMIN 3.8 g/dl (3.4-5.0); ALK PHOS 70 U/L (45-117); ANION GAP 8 MMOL/L (8-16); BILIRUBIN,DIRECT 0.2 mg/dL (0.0-0.2); BILIRUBIN,TOTAL 0.5 mg/dL (0.2-1); BILIRUBIN,TOTAL 0.6 mg/dL (0.2-1); BLOOD UREA NITROGEN 11 mg/dL (7-18); CALCIUM 8.8 mg/dL (8.5-10.1); CHLORIDE 103 mmol/L (98-107); CO2 28 mmol/L (21-32); CREATININE 0.6 mg/dL (0.55-1.3); GLUCOSE,RANDOM 79 mg/dL (74-106); POTASSIUM 3.7 mmol/L (3.5-5.1); SGOT/AST 11 U/L (15-37); SGPT/ALT 16 U/L (13-61); SODIUM 139 mmol/L (136-145); TOT PROT 7.3 g/dl (6.4-8.2)
[2018-04-19 16:42] VITALS: BP 106/66; PULSE 71
[2018-04-19 16:43] VITALS: TEMP 98.2
[2018-04-21 06:11] LABS: FOLLICLE STIMULATING HORMONE 3.7 mIU/mL (.); LUTEINIZING HORMONE 0.5 mIU/mL (.)
== END 2018-04-19 17:21 | disposition home or self-care (01) ==
LOC: JONCCHEMO 07:30 → J7W 15:59 → JONCCHEMO 17:21
PROVIDERS: ATTEND Internal Medicine Hematology & Oncology
DX: Z51.11 Encounter for antineoplastic chemotherapy (principal); C50.411 Malignant neoplasm of upper-outer quadrant of right female breast
CPT/HCPCS: 36415; 80053; 80076; 82670; 83001; 83002; 83735; 84703; 85025; 96402; J9202

== ENCOUNTER 2018-05-14 07:33 | Day surgery (SDC) | payer BC, OTHER ==
[2018-05-14] MEDS ORDERED: GOSERELIN ACETATE 3.6 MG IMPLANT SYRINGE SQ ONE (10:00)
[2018-05-14] MEDS ORDERED: LIDOCAINE 1% P/F 10 MG/ML VIAL INF ONE (10:00)
[2018-05-14 15:16] LABS: BASO % 0.6 % (0-2.0); EOS % 2.2 % (0-4.5); HEMATOCRIT 35.5 % (32.4-45.2); HEMOGLOBIN 12.6 GM/dL (10.7-15.3); LYMPH % 27.6 % (8-40); MCH 31.9 pg (25.7-33.7); MCHC 35.4 g/dl (32.0-36.0); MEAN PLT VOLUME 8.6 fl (7.5-11.1); MONO % 8.8 % (3.8-10.2); NEUT % 60.8 % (42.8-82.8); PLATELET COUNT 203 K/MM3 (134-434); RBC 3.94 M/mm3 (3.60-5.2); RDW 13.3 % (11.6-15.6); WHITE BLOOD COUNT 4.2 K/mm3 (4.0-10.0)
[2018-05-14 15:53] LABS: ALBUMIN 3.8 g/dl (3.4-5.0); ALK PHOS 69 U/L (45-117); ANION GAP 6 MMOL/L (8-16); BILIRUBIN,DIRECT 0.1 mg/dL (0.0-0.2); BILIRUBIN,TOTAL 0.4 mg/dL (0.2-1); BLOOD UREA NITROGEN 11 mg/dL (7-18); CALCIUM 8.8 mg/dL (8.5-10.1); CHLORIDE 104 mmol/L (98-107); CO2 30 mmol/L (21-32); CREATININE 0.6 mg/dL (0.55-1.3); GLUCOSE,RANDOM 77 mg/dL (74-106); MAGNESIUM 1.8 mg/dL (1.8-2.4); POTASSIUM 3.9 mmol/L (3.5-5.1); SGOT/AST 14 U/L (15-37); SGPT/ALT 17 U/L (13-61); SODIUM 140 mmol/L (136-145); TOT PROT 7.5 g/dl (6.4-8.2)
[2018-05-14 19:08] VITALS: BP 105/88; PULSE 74; TEMP 99
== END 2018-05-14 16:40 | disposition home or self-care (01) ==
LOC: JONCCHEMO 07:33 → J7W 15:58 → JONCCHEMO 16:40
PROVIDERS: ATTEND Internal Medicine Hematology & Oncology
DX: Z51.11 Encounter for antineoplastic chemotherapy (principal); C50.411 Malignant neoplasm of upper-outer quadrant of right female breast
CPT/HCPCS: 36415; 80053; 80076; 82670; 83735; 84703; 85025; 96402; J9202

== ENCOUNTER 2018-06-13 05:44 | Day surgery (SDC) | payer BC, OTHER ==
[2018-06-13] MEDS ORDERED: LIDOCAINE HCL 1%, 10 MG/ML (20ML VIAL) ID ONE (09:00)
[2018-06-13] MEDS ORDERED: GOSERELIN ACETATE 3.6 MG IMPLANT SYRINGE SQ ONE (09:00)
[2018-06-13 11:37] LABS: BASO % 0.5 % (0-2.0); EOS % 3.9 % (0-4.5); MCH 31.7 pg (25.7-33.7); MCHC 35.2 g/dl (32.0-36.0); MEAN CELL VOLUME 90.3 fl (80-96); MEAN PLT VOLUME 8.5 fl (7.5-11.1); MONO % 8.3 % (3.8-10.2); NEUT % 57.3 % (42.8-82.8); PLATELET COUNT 183 K/MM3 (134-434); RBC 4.09 M/mm3 (3.60-5.2); RDW 13.5 % (11.6-15.6); WHITE BLOOD COUNT 3.6 K/mm3 (4.0-10.0)
[2018-06-13 12:18] LABS: ALBUMIN 3.6 g/dl (3.4-5.0); BILIRUBIN,DIRECT 0.2 mg/dL (0.0-0.2); BILIRUBIN,TOTAL 0.6 mg/dL (0.2-1); MAGNESIUM 2.2 mg/dL (1.8-2.4); TOT PROT 7.2 g/dl (6.4-8.2)
[2018-06-13 12:29] LABS: ALBUMIN 3.7 g/dl (3.4-5.0); ALK PHOS 73 U/L (45-117); ANION GAP 6 MMOL/L (8-16); BILIRUBIN,TOTAL 0.6 mg/dL (0.2-1); BLOOD UREA NITROGEN 7 mg/dL (7-18); CALCIUM 8.8 mg/dL (8.5-10.1); CHLORIDE 108 mmol/L (98-107); CO2 25 mmol/L (21-32); CREATININE 0.6 mg/dL (0.55-1.3); GLUCOSE,RANDOM 86 mg/dL (74-106); SGOT/AST 18 U/L (15-37); SGPT/ALT 17 U/L (13-61); SODIUM 140 mmol/L (136-145); TOT PROT 7.3 g/dl (6.4-8.2)
[2018-06-13 13:52] VITALS: BP 104/59; PULSE 70; TEMP 98
== END 2018-06-13 12:55 | disposition home or self-care (01) ==
LOC: JONCCHEMO 05:44 → J7W 12:35 → JONCCHEMO 12:55
PROVIDERS: ATTEND Internal Medicine Hematology & Oncology
DX: Z51.11 Encounter for antineoplastic chemotherapy (principal); C50.411 Malignant neoplasm of upper-outer quadrant of right female breast
CPT/HCPCS: 36415; 80053; 80076; 83735; 85025; 96402; J9202

== ENCOUNTER 2018-07-13 06:41 | Day surgery (SDC) | payer BC, OTHER ==
[~2018-07-13 06:41] MED LIST: GOSERELIN ACETATE 3.6 MG IMPLANT SYRINGE SQ ONE; LIDOCAINE HCL 1%, 10 MG/ML (20ML VIAL) ID ONE
[2018-07-13] MEDS ORDERED: LIDOCAINE HCL 1%, 10 MG/ML (20ML VIAL) ID ONE (10:00)
[2018-07-13] MEDS ORDERED: GOSERELIN ACETATE 3.6 MG IMPLANT SYRINGE SQ ONE (10:00)
[2018-07-13 16:25] VITALS: BP 116/50; PULSE 81; TEMP 99.5
== END 2018-07-13 15:55 | disposition home or self-care (01) ==
LOC: JONCCHEMO 06:41 → J7W 15:34 → JONCCHEMO 15:55
PROVIDERS: ATTEND Internal Medicine Hematology & Oncology
DX: Z51.11 Encounter for antineoplastic chemotherapy (principal); C50.411 Malignant neoplasm of upper-outer quadrant of right female breast
CPT/HCPCS: 96401; 96402; J9202

== ENCOUNTER 2018-08-10 07:14 | Day surgery (SDC) | payer BC, OTHER ==
[2018-08-10] MEDS ORDERED: LIDOCAINE HCL 1%, 10 MG/ML (20ML VIAL) ID ONE ×2 (09:00)
[2018-08-10] MEDS ORDERED: GOSERELIN ACETATE 3.6 MG IMPLANT SYRINGE SQ ONE ×2 (09:00)
[2018-08-10 12:06] LABS: BASO % 0.6 % (0-2.0); EOS % 2.4 % (0-4.5); HEMATOCRIT 37.3 % (32.4-45.2); HEMOGLOBIN 12.9 GM/dL (10.7-15.3); LYMPH % 32.1 % (8-40); MCH 31.3 pg (25.7-33.7); MCHC 34.5 g/dl (32.0-36.0); MEAN CELL VOLUME 90.6 fl (80-96); MONO % 8.9 % (3.8-10.2); RBC 4.11 M/mm3 (3.60-5.2); RDW 13.5 % (11.6-15.6); WHITE BLOOD COUNT 3.6 K/mm3 (4.0-10.0)
[2018-08-10 12:30] LABS: ALBUMIN 4.1 g/dl (3.4-5.0); BILIRUBIN,DIRECT 0.2 mg/dL (0.0-0.2); BILIRUBIN,TOTAL 0.7 mg/dL (0.2-1); TOT PROT 7.9 g/dl (6.4-8.2)
[2018-08-10 12:31] LABS: ALBUMIN 4.2 g/dl (3.4-5.0); ALK PHOS 77 U/L (45-117); ANION GAP 6 MMOL/L (8-16); BILIRUBIN,TOTAL 0.7 mg/dL (0.2-1); BLOOD UREA NITROGEN 13 mg/dL (7-18); CALCIUM 9.2 mg/dL (8.5-10.1); CHLORIDE 104 mmol/L (98-107); CO2 28 mmol/L (21-32); CREATININE 0.7 mg/dL (0.55-1.3); GLUCOSE,RANDOM 87 mg/dL (74-106); POTASSIUM 3.7 mmol/L (3.5-5.1); SGOT/AST 11 U/L (15-37); SGPT/ALT 18 U/L (13-61); SODIUM 138 mmol/L (136-145); TOT PROT 8.1 g/dl (6.4-8.2)
[2018-08-10 13:21] VITALS: BP 107/47; PULSE 75; TEMP 98.6
[2018-08-11 04:15] LABS: LUTEINIZING HORMONE 0.4 mIU/mL (.)
== END 2018-08-10 12:55 | disposition home or self-care (01) ==
LOC: JONCCHEMO 07:14 → J7W 12:33 → JONCCHEMO 12:55
PROVIDERS: ATTEND Internal Medicine Hematology & Oncology
DX: Z51.11 Encounter for antineoplastic chemotherapy (principal); C50.411 Malignant neoplasm of upper-outer quadrant of right female breast
CPT/HCPCS: 36415; 80053; 80076; 82670; 83001; 83002; 83735; 85025; 96402; J9202

== ENCOUNTER 2018-09-07 06:22 | Day surgery (SDC) | payer BC, OTHER ==
[2018-09-07] MEDS ORDERED: LIDOCAINE HCL 1%, 10 MG/ML (20ML VIAL) ID ONE (10:00)
[2018-09-07] MEDS ORDERED: GOSERELIN ACETATE 3.6 MG IMPLANT SYRINGE SQ ONE (10:00)
[2018-09-07 15:25] LABS: BASO % 0.4 % (0-2.0); EOS % 3.2 % (0-4.5); HEMOGLOBIN 12.2 GM/dL (10.7-15.3); LYMPH % 33.7 % (8-40); MCH 31.9 pg (25.7-33.7); MCHC 34.8 g/dl (32.0-36.0); MEAN CELL VOLUME 91.8 fl (80-96); MEAN PLT VOLUME 8.5 fl (7.5-11.1); NEUT % 53.7 % (42.8-82.8); PLATELET COUNT 182 K/MM3 (134-434); RBC 3.81 M/mm3 (3.60-5.2); RDW 13.5 % (11.6-15.6); WHITE BLOOD COUNT 4.7 K/mm3 (4.0-10.0)
[2018-09-07 15:45] LABS: ALBUMIN 3.9 g/dl (3.4-5.0); ALK PHOS 72 U/L (45-117); ANION GAP 9 MMOL/L (8-16); BILIRUBIN,DIRECT 0.1 mg/dL (0.0-0.2); BILIRUBIN,TOTAL 0.4 mg/dL (0.2-1); BILIRUBIN,TOTAL 0.5 mg/dL (0.2-1); BLOOD UREA NITROGEN 11 mg/dL (7-18); CALCIUM 9.1 mg/dL (8.5-10.1); CHLORIDE 105 mmol/L (98-107); CO2 26 mmol/L (21-32); CREATININE 0.7 mg/dL (0.55-1.3); GLUCOSE,RANDOM 77 mg/dL (74-106); POTASSIUM 3.5 mmol/L (3.5-5.1); SGOT/AST 16 U/L (15-37); SGPT/ALT 15 U/L (13-61); SODIUM 140 mmol/L (136-145); TOT PROT 7.5 g/dl (6.4-8.2)
[2018-09-07 18:37] VITALS: BP 100/49; PULSE 85; TEMP 97.9
== END 2018-09-07 16:10 | disposition home or self-care (01) ==
LOC: JONCCHEMO 06:22 → J7W 15:54 → JONCCHEMO 16:10
PROVIDERS: ATTEND Internal Medicine Hematology & Oncology
DX: Z51.11 Encounter for antineoplastic chemotherapy (principal); C50.411 Malignant neoplasm of upper-outer quadrant of right female breast
CPT/HCPCS: 36415; 80053; 80076; 82306; 82670; 83735; 85025; 96402; J9202

== ENCOUNTER 2018-10-05 07:06 | Day surgery (SDC) | payer BC, OTHER ==
[2018-10-05] MEDS ORDERED: GOSERELIN ACETATE 3.6 MG IMPLANT SYRINGE SQ ONE (09:00)
[2018-10-05] MEDS ORDERED: LIDOCAINE HCL 1%, 10 MG/ML (20ML VIAL) ID ONE (09:00)
[2018-10-05 11:09] LABS: BASO % 0.5 % (0-2.0); EOS % 2.6 % (0-4.5); HEMATOCRIT 36.8 % (32.4-45.2); HEMOGLOBIN 12.7 GM/dL (10.7-15.3); LYMPH % 22.3 % (8-40); MCH 31.6 pg (25.7-33.7); MCHC 34.4 g/dl (32.0-36.0); MEAN CELL VOLUME 91.9 fl (80-96); MEAN PLT VOLUME 8.5 fl (7.5-11.1); MONO % 10.2 % (3.8-10.2); NEUT % 64.4 % (42.8-82.8); PLATELET COUNT 193 K/MM3 (134-434); RDW 13.2 % (11.6-15.6); WHITE BLOOD COUNT 5.7 K/mm3 (4.0-10.0)
[2018-10-05 11:42] LABS: ALBUMIN 3.7 g/dl (3.4-5.0); ALK PHOS 96 U/L (45-117); ANION GAP 8 MMOL/L (8-16); BILIRUBIN,DIRECT 0.1 mg/dL (0.0-0.2); BILIRUBIN,TOTAL 0.2 mg/dL (0.2-1); BLOOD UREA NITROGEN 10 mg/dL (7-18); CALCIUM 8.7 mg/dL (8.5-10.1); CHLORIDE 108 mmol/L (98-107); CO2 28 mmol/L (21-32); CREATININE 0.7 mg/dL (0.55-1.3); GLUCOSE,RANDOM 83 mg/dL (74-106); MAGNESIUM 2.1 mg/dL (1.8-2.4); SGOT/AST 17 U/L (15-37); SGPT/ALT 20 U/L (13-61); SODIUM 143 mmol/L (136-145); TOT PROT 7.2 g/dl (6.4-8.2)
[2018-10-05 15:11] VITALS: BP 112/52; PULSE 76; TEMP 98.7
== END 2018-10-05 12:45 | disposition home or self-care (01) ==
LOC: JONCCHEMO 07:06 → J7W 12:11 → JONCCHEMO 12:45
PROVIDERS: ATTEND Internal Medicine Hematology & Oncology
DX: Z51.11 Encounter for antineoplastic chemotherapy (principal); C50.411 Malignant neoplasm of upper-outer quadrant of right female breast
CPT/HCPCS: 36415; 80048; 80076; 82306; 83735; 85025; 96402; J9202

== ENCOUNTER 2018-11-02 07:09 | Day surgery (SDC) | payer BC, OTHER ==
[2018-11-02] MEDS ORDERED: GOSERELIN ACETATE 3.6 MG IMPLANT SYRINGE SQ ONE (10:00)
[2018-11-02] MEDS ORDERED: LIDOCAINE HCL 1%, 10 MG/ML (20ML VIAL) ID ONE (10:00)
[2018-11-02 15:40] LABS: BASO % 0.3 % (0-2.0); EOS % 4.6 % (0-4.5); HEMATOCRIT 36.5 % (32.4-45.2); HEMOGLOBIN 12.4 GM/dL (10.7-15.3); LYMPH % 29.6 % (8-40); MCH 30.8 pg (25.7-33.7); MCHC 33.9 g/dl (32.0-36.0); MEAN CELL VOLUME 90.9 fl (80-96); MEAN PLT VOLUME 8.9 fl (7.5-11.1); MONO % 9.3 % (3.8-10.2); NEUT % 56.2 % (42.8-82.8); PLATELET COUNT 200 K/MM3 (134-434); RBC 4.01 M/mm3 (3.60-5.2); RDW 13.5 % (11.6-15.6); WHITE BLOOD COUNT 5.5 K/mm3 (4.0-10.0)
[2018-11-02 16:14] LABS: ALBUMIN 3.7 g/dl (3.4-5.0); BILIRUBIN,TOTAL 0.6 mg/dL (0.2-1); CALCIUM 9.3 mg/dL (8.5-10.1); CREATININE 0.6 mg/dL (0.55-1.3); POTASSIUM 3.4 mmol/L (3.5-5.1); TOT PROT 7.1 g/dl (6.4-8.2)
[2018-11-02 16:26] VITALS: BP 111/41; PULSE 86; TEMP 98.2
== END 2018-11-02 16:26 | disposition home or self-care (01) ==
LOC: JONCCHEMO 07:09 → J7W 15:45 → JONCCHEMO 16:26
PROVIDERS: ATTEND Internal Medicine Hematology & Oncology
DX: Z51.11 Encounter for antineoplastic chemotherapy (principal); C50.412 Malignant neoplasm of upper-outer quadrant of left female breast
CPT/HCPCS: 36415; 80053; 83735; 85025; 96402; J9202

== ENCOUNTER 2018-11-25 13:42 | Emergency (ER) | payer OTHER | END 2018-11-25 18:17 | disposition home or self-care (01) | LOC: JER 13:42 ==

== ENCOUNTER 2018-11-29 05:50 | Day surgery (SDC) | payer BC, OTHER ==
[2018-11-29] MEDS ORDERED: LIDOCAINE HCL 1%, 10 MG/ML (20ML VIAL) ID ONE (09:00)
[2018-11-29] MEDS ORDERED: GOSERELIN ACETATE 3.6 MG IMPLANT SYRINGE SQ ONE (09:00)
[2018-11-29 15:10] LABS: BASO % 0.5 % (0-2.0); EOS % 2.3 % (0-4.5); HEMATOCRIT 34.5 % (32.4-45.2); HEMOGLOBIN 11.7 GM/dL (10.7-15.3); LYMPH % 29.1 % (8-40); MCH 30.6 pg (25.7-33.7); MCHC 33.9 g/dl (32.0-36.0); MEAN CELL VOLUME 90.4 fl (80-96); MEAN PLT VOLUME 8.1 fl (7.5-11.1); MONO % 8.3 % (3.8-10.2); NEUT % 59.8 % (42.8-82.8); RBC 3.81 M/mm3 (3.60-5.2); RDW 13.2 % (11.6-15.6); WHITE BLOOD COUNT 4.8 K/mm3 (4.0-10.0)
[2018-11-29 15:17] LABS: PLATELET COUNT 196 K/MM3 (134-434)
[2018-11-29 15:46] LABS: ALBUMIN 3.7 g/dl (3.4-5.0); ALK PHOS 67 U/L (45-117); ANION GAP 6 MMOL/L (8-16); BILIRUBIN,TOTAL 0.3 mg/dL (0.2-1); CALCIUM 8.8 mg/dL (8.5-10.1); CHLORIDE 104 mmol/L (98-107); CO2 30 mmol/L (21-32); CREATININE 0.6 mg/dL (0.55-1.3); GLUCOSE,RANDOM 92 mg/dL (74-106); POTASSIUM 3.5 mmol/L (3.5-5.1); SGOT/AST 14 U/L (15-37); SGPT/ALT 16 U/L (13-61); SODIUM 140 mmol/L (136-145)
[2018-11-29 17:20] VITALS: BP 106/70; PULSE 74; TEMP 98.1
[2018-12-01 04:12] LABS: SERUM IRON SATURATION 23 % (15-55); TOTAL IRON BINDING CAPACITY 254 ug/dL (250-450); UIBC 196 ug/dL (131-425)
== END 2018-11-29 16:30 | disposition home or self-care (01) ==
LOC: JONCCHEMO 05:50 → J7W 16:13 → JONCCHEMO 16:30
PROVIDERS: ATTEND Internal Medicine Hematology & Oncology
DX: Z51.11 Encounter for antineoplastic chemotherapy (principal); C50.412 Malignant neoplasm of upper-outer quadrant of left female breast
CPT/HCPCS: 36415; 80053; 82607; 82728; 83540; 83550; 85025; 85651; 86140; 96402; J9202

== ENCOUNTER 2018-12-28 06:17 | Day surgery (SDC) | payer BC, OTHER ==
[2018-12-28] MEDS ORDERED: LIDOCAINE HCL 1%, 10 MG/ML (20ML VIAL) ID ONE (10:00)
[2018-12-28] MEDS ORDERED: GOSERELIN ACETATE 3.6 MG IMPLANT SYRINGE SQ ONE (10:00)
[2018-12-28 10:25] LABS: HEMOGLOBIN 12.2 GM/dL (10.7-15.3); WHITE BLOOD COUNT 4.9 K/mm3 (4.0-10.0)
[2018-12-28 10:48] LABS: ALBUMIN 3.6 g/dl (3.4-5.0); BILIRUBIN,TOTAL 0.4 mg/dL (0.2-1); BLOOD UREA NITROGEN 14.2 mg/dL (7-18); CALCIUM 9.1 mg/dL (8.5-10.1); CREATININE 0.7 mg/dL (0.55-1.3); POTASSIUM 4.3 mmol/L (3.5-5.1); TOT PROT 6.9 g/dl (6.4-8.2)
[2018-12-28 10:54] LABS: BASO % 0.3 % (0-2.0); EOS % 2.5 % (0-4.5); LYMPH % 27.9 % (8-40); MCHC 33.9 g/dl (32.0-36.0); MEAN CELL VOLUME 91.2 fl (80-96); MEAN PLT VOLUME 8.9 fl (7.5-11.1); MONO % 8.7 % (3.8-10.2); NEUT % 60.6 % (42.8-82.8); PLATELET COUNT 180 K/MM3 (134-434); RBC 3.94 M/mm3 (3.60-5.2); RDW 13.3 % (11.6-15.6)
[2018-12-28 12:33] VITALS: BP 107/44; PULSE 71; TEMP 98.8
--- NOTE | 2018-12-28 19:10 | PN ---
Progress Note (short form) - Note Progress Note: PAtient seen and examined Here for zoladex AFVSS Cor: RSR, No murmurs, No gallops Lungs: Clear to P&A Abd: Soft, Normal bowel sounds, No organomegaly Ext:No significant edema Labs/Meds reviewed A/P 43 y/o patient with stage IA ER+, CO+, Her3- breast cancer s/p taxoere/cyoxan x 4 cycles , now on zoladex + tamoxifen Also h/o psoriasis
== END 2018-12-28 10:15 | disposition home or self-care (01) ==
LOC: JONCCHEMO 06:17 → J7W 09:14 → JONCCHEMO 10:15
PROVIDERS: ATTEND Internal Medicine Hematology & Oncology
DX: Z51.11 Encounter for antineoplastic chemotherapy (principal); C50.412 Malignant neoplasm of upper-outer quadrant of left female breast
CPT/HCPCS: 36415; 80053; 82306; 85025; 96402; J9202

== ENCOUNTER 2019-01-25 05:33 | Day surgery (SDC) | payer BC, OTHER ==
[2019-01-25] MEDS ORDERED: LIDOCAINE HCL 1%, 10 MG/ML (20ML VIAL) ID ONE (10:00)
[2019-01-25] MEDS ORDERED: GOSERELIN ACETATE 3.6 MG IMPLANT SYRINGE SQ ONE (10:00)
[2019-01-25 10:53] LABS: BASO % 0.5 % (0-2.0); EOS % 2.4 % (0-4.5); HEMOGLOBIN 12.5 GM/dL (10.7-15.3); LYMPH % 30.1 % (8-40); MCH 30.7 pg (25.7-33.7); MCHC 33.8 g/dl (32.0-36.0); MEAN CELL VOLUME 90.9 fl (80-96); MEAN PLT VOLUME 8.8 fl (7.5-11.1); MONO % 8.6 % (3.8-10.2); NEUT % 58.4 % (42.8-82.8); PLATELET COUNT 174 K/MM3 (134-434); RBC 4.07 M/mm3 (3.60-5.2); RDW 13.4 % (11.6-15.6); WHITE BLOOD COUNT 4.3 K/mm3 (4.0-10.0)
[2019-01-25 11:02] VITALS: BP 100/53; PULSE 56; TEMP 98.6
[2019-01-25 11:25] LABS: ALBUMIN 3.8 g/dl (3.4-5.0); BILIRUBIN,DIRECT 0.1 mg/dL (0.0-0.2); BILIRUBIN,TOTAL 0.4 mg/dL (0.2-1); BLOOD UREA NITROGEN 8.8 mg/dL (7-18); CREATININE 0.6 mg/dL (0.55-1.3); MAGNESIUM 2.1 mg/dL (1.8-2.4); POTASSIUM 4.3 mmol/L (3.5-5.1); TOT PROT 7.4 g/dl (6.4-8.2)
== END 2019-01-25 11:45 | disposition home or self-care (01) ==
LOC: JONCCHEMO 05:33 → J7W 10:52 → JONCCHEMO 11:45
PROVIDERS: ATTEND Internal Medicine Hematology & Oncology
DX: Z51.11 Encounter for antineoplastic chemotherapy (principal); C50.412 Malignant neoplasm of upper-outer quadrant of left female breast
CPT/HCPCS: 36415; 80048; 80076; 83735; 85025; 96402; J9202

== ENCOUNTER 2019-02-22 06:35 | Day surgery (SDC) | payer BC, OTHER ==
[2019-02-22] MEDS ORDERED: LIDOCAINE HCL/PF 1% SDV 5ML VIAL INF ONE (10:00)
[2019-02-22] MEDS ORDERED: GOSERELIN ACETATE 3.6 MG IMPLANT SYRINGE SQ ONE (10:00)
[2019-02-22 16:21] VITALS: BP 108/64; PULSE 70; TEMP 98.2
[2019-02-22 17:49] LABS: BASO % 0.3 % (0-2.0); EOS % 2.8 % (0-4.5); HEMATOCRIT 37.1 % (32.4-45.2); HEMOGLOBIN 12.4 GM/dL (10.7-15.3); LYMPH % 35.9 % (8-40); MCH 30.5 pg (25.7-33.7); MCHC 33.4 g/dl (32.0-36.0); MEAN CELL VOLUME 91.2 fl (80-96); MEAN PLT VOLUME 9.1 fl (7.5-11.1); MONO % 8.4 % (3.8-10.2); NEUT % 52.6 % (42.8-82.8); PLATELET COUNT 205 K/MM3 (134-434); RBC 4.06 M/mm3 (3.60-5.2); RDW 13.3 % (11.6-15.6); WHITE BLOOD COUNT 5.2 K/mm3 (4.0-10.0)
[2019-02-22 18:20] LABS: ALBUMIN 3.9 g/dl (3.4-5.0); BILIRUBIN,TOTAL 0.6 mg/dL (0.2-1); BLOOD UREA NITROGEN 9.8 mg/dL (7-18); CALCIUM 9.5 mg/dL (8.5-10.1); CREATININE 0.7 mg/dL (0.55-1.3); MAGNESIUM 2.1 mg/dL (1.8-2.4); POTASSIUM 3.6 mmol/L (3.5-5.1); TOT PROT 7.6 g/dl (6.4-8.2)
== END 2019-02-22 16:23 | disposition home or self-care (01) ==
LOC: JONCCHEMO 06:35 → J7W 16:11 → JONCCHEMO 16:23
PROVIDERS: ATTEND Internal Medicine Hematology & Oncology
DX: Z51.11 Encounter for antineoplastic chemotherapy (principal); C50.412 Malignant neoplasm of upper-outer quadrant of left female breast
CPT/HCPCS: 36415; 80053; 83735; 85025; J9202

== ENCOUNTER 2019-02-24 13:10 | Emergency (ER) | payer BC, OTHER ==
--- NOTE | 2019-02-24 13:25 | PDOC ---
History of Present Illness - General Chief Complaint: Pain Stated Complaint: LEFT UPPER LEG PAIN Time Seen by Provider: 02/24/19 13:25 - History of Present Illness Initial Comments: 02/24/19 14:09 Pt with a history of breast CA on tamoxifen presents to the ED complaining of pain and swelling to her left upper thigh that began this morning. Patient was in her usual state of health yesterday, carrying out her usual activities. Today she awoke with pain and tenderness over her left medial upper thigh. Denies fever, nausea or vomiting. Denies trauma. Area appears mildly swollen to her, but denies diffuse leg swelling. Past History - Past Medical History Allergies/Adverse Reactions: Allergies Allergy/AdvReac Type Severity Reaction Status Date / Time No Known Allergies Allergy Verified 02/24/19 13:11 Home Medications: Ambulatory Orders Goserelin Acetate [Zoladex] 10.8 mg SQ MONTHLY 11/25/18 Secukinumab [Cosentyx (2 Syringes)] 300 mg SQ MONTHLY 11/25/18 Tamoxifen Citrate 20 mg PO DAILY 11/25/18 Calcium Carbonate/Vitamin D3 [Calcium 500 + Vit D Caplet] 1 each PO BID Anemia: No Asthma: No Cancer: Yes (Left Breast) Cardiac Disorders: No CVA: No COPD: No CHF: No Dementia: No Diabetes: No GI Disorders: No Disorders: No HTN: No (LOW BP) Hypercholesterolemia: No Liver Disease: No Seizures: No Thyroid Disease: No - Surgical History Abdominal Surgery: No Appendectomy: No Cardiac Surgery: No Cholecystectomy: No Lung Surgery: No Neurologic Surgery: No Orthopedic Surgery: No - Suicide/Smoking/Psychosocial Hx Smoking Status: No Smoking History: Never smoked Have you smoked in the past 12 months: No Number of Cigarettes Smoked Daily: 0 Hx Alcohol Use: No Drug/Substance Use Hx: No Substance Use Type: None Hx Substance Use Treatment: No Review of Systems - Review of Systems Able to Perform ROS?: Yes Is the patient limited Lithuanian proficient: No Constitutional: No: Symptoms Reported, See HPI, Chills, Diaphoresis, Fever, Loss of Appetite, Malaise, Night Sweats, Weakness, Weight Stable, Unintentional Wgt. Loss, Unexplained wgt Loss, Other HEENTM: No: Symptoms Reported, See HPI, Eye Pain, Blurred Vision, Tearing, Recent change in vision, Double Vision, Cataracts, Ear Pain, Ocular Prothesis, Ear Discharge, Nose Pain, Nose Congestion, Tinnitus, Nose Bleeding, Hearing Loss , Throat Pain, Throat Swelling, Mouth Pain, Dental Problems, Difficulty Swallowing, Mouth Swelling, Other Respiratory: No: Symptoms reported, See HPI, Cough, Orthopnea, Shortness of Breath, SOB with Exertion, SOB at Rest, Stridor, Wheezing, Productive cough, Hemoptysis, Other Cardiac (ROS): No: Symptoms Reported, See HPI, Chest Pain, Edema, Irregular Heart Rate, Lightheadedness, Palpitations, Syncope, Chest Tightness, Other ABD/GI: No: Symptoms Reported, See HPI, Abdominal Distended, Abd. Pain w/ defecation, Blood Streaked Bowels, Constipated, Diarrhea, Difficulty Swallowing , Nausea, Poor Appetite, Poor Fluid Intake, Rectal Bleeding, Vomiting, Indigestion, Abdominal cramping, Tarry Stools, Other : No: Symptoms Reported, See HPI, Burning, Dysuria, Discharge, Frequency, Flank Pain, Hematuria, Incontinence, Pain, Urgency, Lesions, Other Musculoskeletal: No: Symptoms Reported, See HPI, Back Pain, Gout, Joint Pain, Joint Swelling, Muscle Pain, Muscle Weakness, Neck Pain, Joint Stiffness, Other Integumentary: No: Symptoms Reported, See HPI, Bruising, Change in Color, Change in Hair/Nails, Dryness, Erythema, Flushing, Lesions, Lumps, Pallor, Pruritus, Rash, Sweating, Other All Other Systems: Reviewed and Negative *Physical Exam - Physical Exam Comments: 02/24/19 14:35 Gen: alert, NAD HEENT: normocephalic, atraumatic CV: rrr, no m/r/g pulm: CTA b/l Abdomen: soft, non tender, non distended ext: + slightly warm, mildly tender area to L inner thigh, adjacent to femoral triangle. very slightly swollen when compared to upper inner thigh on R. No overlying skin changes, no discrete masses, no fluctuance. Rest of lower extremities are symmetric. No tenderness or erythema of rest of L thigh, knee, calf or ankle. ED Treatment Course - LABORATORY CBC & Chemistry Diagram: 02/24/19 13:40 02/24/19 13:40 Medical Decision Making - Medical Decision Making 02/24/19 14:41 Pt presents to the ED complaining of pain to the left upper thigh. no signs and symptoms consistent with infection. Will check duplex to rule out DVT. Will check labs to screen for infection. Will discharge home if duplex is negative. 02/24/19 14:54 02/24/19 15:12 US is negative for DVT, but shows enlarged inguinal lymph nodes. Pt shows no symptoms of infection and wbc count is normal. Patient will follow up with Dr. Gonzales. She is aware that if the swelling persists, it may be evidence of spreading malignancy. 02/24/19 15:12 *DC/Admit/Observation/Transfer Diagnosis at time of Disposition: Lymph nodes enlarged - Discharge Dispostion Disposition: HOME Condition at time of disposition: Good Decision to Admit order: No - Referrals - Patient Instructions Printed Discharge Instructions: DI for Lymphadenopathy Additional Instructions: return to the ED for worsening pain or swelling, pain with fever, nausea or vomiting, other new or worsening symptoms. Your ultrasound was negative for a blood clot, but we did find enlarged lymph nodes, which may be a sign of infection. You must follow up with Dr. Gonzales to monitor these lymph nodes. - Post Discharge Activity
[2019-02-24 13:59] LABS: BASO % 0.2 % (0-2.0); EOS % 2.2 % (0-4.5); HEMATOCRIT 35.3 % (32.4-45.2); LYMPH % 12.6 % (8-40); MCH 31.4 pg (25.7-33.7); MCHC 34.1 g/dl (32.0-36.0); MEAN PLT VOLUME 8.5 fl (7.5-11.1); MONO % 5.7 % (3.8-10.2); NEUT % 79.3 % (42.8-82.8); PLATELET COUNT 180 K/MM3 (134-434); RBC 3.84 M/mm3 (3.60-5.2); RDW 12.5 % (11.6-15.6); WHITE BLOOD COUNT 7.6 K/mm3 (4.0-10.8)
[2019-02-24 14:03] LABS: ALBUMIN 3.7 g/dl (3.4-5.0); BILIRUBIN,TOTAL 0.6 mg/dl (0.2-1); CALCIUM 8.8 mg/dl (8.5-10); CREATININE 0.7 mg/dl (0.55-1.3); POTASSIUM 4.1 mmol/L (3.5-5.1); TOT PROT 6.7 g/dl (6.4-8.2)
[2019-02-24 14:06] VITALS: BP 101/56; PULSE 83; TEMP 99.8; BMI 21.4
== END 2019-02-24 15:33 | disposition home or self-care (01) ==
LOC: FER 13:10
DX: R59.9 Enlarged lymph nodes, unspecified (principal); Z85.3 Personal history of malignant neoplasm of breast
CPT/HCPCS: 36415; 80053; 85025; 93971-TC; 99283-25

== ENCOUNTER 2019-03-22 05:39 | Day surgery (SDC) | payer BC, OTHER ==
[2019-03-22] MEDS ORDERED: GOSERELIN ACETATE 3.6 MG IMPLANT SYRINGE SQ ONE (10:00)
[2019-03-22] MEDS ORDERED: LIDOCAINE HCL 1%, 10 MG/ML (20ML VIAL) ID ONE (10:00)
[2019-03-22 15:47] LABS: BASO % 0.3 % (0-2.0); EOS % 3.8 % (0-4.5); HEMATOCRIT 37.6 % (32.4-45.2); HEMOGLOBIN 12.8 GM/dL (10.7-15.3); LYMPH % 32.6 % (8-40); MEAN CELL VOLUME 91.2 fl (80-96); MEAN PLT VOLUME 8.9 fl (7.5-11.1); MONO % 8.4 % (3.8-10.2); NEUT % 54.9 % (42.8-82.8); PLATELET COUNT 208 K/MM3 (134-434); RBC 4.12 M/mm3 (3.60-5.2); RDW 13.2 % (11.6-15.6); WHITE BLOOD COUNT 5.4 K/mm3 (4.0-10.0)
[2019-03-22 16:45] LABS: BILIRUBIN,TOTAL 0.4 mg/dL (0.2-1); BLOOD UREA NITROGEN 9.7 mg/dL (7-18); CREATININE 0.7 mg/dL (0.55-1.3); POTASSIUM 3.5 mmol/L (3.5-5.1); TOT PROT 7.4 g/dl (6.4-8.2)
[2019-03-22 17:18] VITALS: BP 111/51; PULSE 87; TEMP 98
== END 2019-03-22 16:40 | disposition home or self-care (01) ==
LOC: JONCCHEMO 05:39 → J7W 16:15 → JONCCHEMO 16:40
PROVIDERS: ATTEND Internal Medicine Hematology & Oncology
DX: Z51.11 Encounter for antineoplastic chemotherapy (principal); C50.412 Malignant neoplasm of upper-outer quadrant of left female breast
CPT/HCPCS: 36415; 80053; 83735; 85025; 96402; J9202

== ENCOUNTER 2019-04-19 05:30 | Day surgery (SDC) | payer BC, OTHER ==
[2019-04-19] MEDS ORDERED: GOSERELIN ACETATE 3.6 MG IMPLANT SYRINGE SQ ONE (10:00)
[2019-04-19] MEDS ORDERED: LIDOCAINE HCL 1%, 10 MG/ML (20ML VIAL) ID ONE (10:00)
[2019-04-19 16:51] LABS: ALBUMIN 3.7 g/dl (3.4-5.0); BILIRUBIN,TOTAL 0.6 mg/dL (0.2-1); BLOOD UREA NITROGEN 10.4 mg/dL (7-18); CALCIUM 8.9 mg/dL (8.5-10.1); CREATININE 0.7 mg/dL (0.55-1.3); MAGNESIUM 2.1 mg/dL (1.8-2.4); POTASSIUM 3.5 mmol/L (3.5-5.1); TOT PROT 7.3 g/dl (6.4-8.2)
[2019-04-19 16:57] VITALS: BP 111/74; PULSE 62; TEMP 97.9
[2019-04-19 17:12] LABS: EOS % 2.5 % (0-4.5); HEMATOCRIT 34.6 % (32.4-45.2); HEMOGLOBIN 12.1 GM/dL (10.7-15.3); LYMPH % 33.2 % (8-40); MCHC 34.9 g/dl (32.0-36.0); MEAN CELL VOLUME 91.7 fl (80-96); MEAN PLT VOLUME 9.1 fl (7.5-11.1); PLATELET COUNT 202 K/MM3 (134-434); RBC 3.77 M/mm3 (3.60-5.2); RDW 13.4 % (11.6-15.6); WHITE BLOOD COUNT 5.7 K/mm3 (4.0-10.0)
[2019-04-19 17:13] LABS: BASO % 0.3 % (0-2.0)
== END 2019-04-19 16:20 | disposition home or self-care (01) ==
LOC: JONCCHEMO 05:30 → J7W 16:02 → JONCCHEMO 16:20
PROVIDERS: ATTEND Internal Medicine Hematology & Oncology
DX: Z51.11 Encounter for antineoplastic chemotherapy (principal); C50.412 Malignant neoplasm of upper-outer quadrant of left female breast
CPT/HCPCS: 36415; 80053; 83735; 85025; 96402; J9202

== ENCOUNTER 2019-05-17 05:55 | Day surgery (SDC) | payer BC, OTHER ==
[2019-05-17] MEDS ORDERED: GOSERELIN ACETATE 3.6 MG IMPLANT SYRINGE SQ ONE (10:00)
[2019-05-17 14:31] LABS: BASO % 0.3 % (0-2.0); EOS % 2.7 % (0-4.5); HEMATOCRIT 36.7 % (32.4-45.2); HEMOGLOBIN 12.3 GM/dL (10.7-15.3); LYMPH % 28.4 % (8-40); MCH 30.3 pg (25.7-33.7); MCHC 33.5 g/dl (32.0-36.0); MEAN CELL VOLUME 90.3 fl (80-96); MEAN PLT VOLUME 8.7 fl (7.5-11.1); MONO % 7.5 % (3.8-10.2); NEUT % 61.1 % (42.8-82.8); PLATELET COUNT 232 K/MM3 (134-434); RBC 4.07 M/mm3 (3.60-5.2); RDW 13.3 % (11.6-15.6); WHITE BLOOD COUNT 4.3 K/mm3 (4.0-10.0)
[2019-05-17 14:59] LABS: ALBUMIN 3.5 g/dl (3.4-5.0); BILIRUBIN,DIRECT 0.1 mg/dL (0.0-0.2); BILIRUBIN,TOTAL 0.4 mg/dL (0.2-1); BLOOD UREA NITROGEN 8.6 mg/dL (7-18); CALCIUM 8.9 mg/dL (8.5-10.1); CREATININE 0.7 mg/dL (0.55-1.3); MAGNESIUM 2.1 mg/dL (1.8-2.4); POTASSIUM 3.4 mmol/L (3.5-5.1)
[2019-05-17 16:49] VITALS: BP 101/72; PULSE 66; TEMP 97.9
== END 2019-05-17 13:45 | disposition home or self-care (01) ==
LOC: JONCCHEMO 05:55 → J7W 12:53 → JONCCHEMO 13:45
PROVIDERS: ATTEND Internal Medicine Hematology & Oncology
DX: Z51.11 Encounter for antineoplastic chemotherapy (principal); C50.412 Malignant neoplasm of upper-outer quadrant of left female breast
CPT/HCPCS: 36415; 80048; 80076; 82670; 83735; 85025; 96402; J9202

== ENCOUNTER 2019-06-13 11:38 | Day surgery (SDC) | payer BC, OTHER ==
[2019-06-13 12:22] LABS: BASO % 0.3 % (0-2.0); EOS % 2.6 % (0-4.5); HEMATOCRIT 39.6 % (32.4-45.2); HEMOGLOBIN 13.1 GM/dL (10.7-15.3); LYMPH % 32.9 % (8-40); MCH 29.9 pg (25.7-33.7); MEAN CELL VOLUME 90.8 fl (80-96); MEAN PLT VOLUME 8.7 fl (7.5-11.1); MONO % 8.6 % (3.8-10.2); NEUT % 55.6 % (42.8-82.8); PLATELET COUNT 199 K/MM3 (134-434); RBC 4.36 M/mm3 (3.60-5.2); RDW 13.6 % (11.6-15.6)
[2019-06-13 12:44] LABS: ALBUMIN 3.9 g/dl (3.4-5.0); BILIRUBIN,TOTAL 0.6 mg/dL (0.2-1); BLOOD UREA NITROGEN 8.5 mg/dL (7-18); CALCIUM 9.1 mg/dL (8.5-10.1); CREATININE 0.7 mg/dL (0.55-1.3); MAGNESIUM 2.1 mg/dL (1.8-2.4); POTASSIUM 3.7 mmol/L (3.5-5.1); TOT PROT 7.6 g/dl (6.4-8.2)
[2019-06-13] MEDS ORDERED: GOSERELIN ACETATE 3.6 MG IMPLANT SYRINGE SQ ONE (14:00)
[2019-06-13 17:02] VITALS: BP 100/49; PULSE 86; TEMP 98.2
== END 2019-06-13 14:10 | disposition home or self-care (01) ==
LOC: JONCCHEMO 11:38 → J7W 13:18 → JONCCHEMO 14:10
PROVIDERS: ATTEND Internal Medicine Hematology & Oncology
DX: Z51.11 Encounter for antineoplastic chemotherapy (principal); C50.412 Malignant neoplasm of upper-outer quadrant of left female breast
CPT/HCPCS: 36415; 80053; 83735; 85025; 96402; J9202

== ENCOUNTER 2019-07-12 07:08 | Day surgery (SDC) | payer BC, OTHER ==
[2019-07-12] MEDS ORDERED: LIDOCAINE HCL 1%, 10 MG/ML (20ML VIAL) ID ONE (16:00)
[2019-07-12] MEDS ORDERED: GOSERELIN ACETATE 3.6 MG IMPLANT SYRINGE SQ ONE (16:00)
[2019-07-12 16:01] LABS: BASO % 0.5 % (0-2.0); EOS % 2.3 % (0-4.5); HEMATOCRIT 36.9 % (32.4-45.2); HEMOGLOBIN 12.3 GM/dL (10.7-15.3); LYMPH % 31.3 % (8-40); MCH 30.3 pg (25.7-33.7); MCHC 33.5 g/dl (32.0-36.0); MEAN CELL VOLUME 90.5 fl (80-96); MEAN PLT VOLUME 8.8 fl (7.5-11.1); NEUT % 57.9 % (42.8-82.8); PLATELET COUNT 214 K/MM3 (134-434); RBC 4.08 M/mm3 (3.60-5.2); RDW 14.1 % (11.6-15.6); WHITE BLOOD COUNT 5.4 K/mm3 (4.0-10.0)
[2019-07-12 16:10] VITALS: BP 108/44; PULSE 82; TEMP 98.1
[2019-07-12 16:18] LABS: IRON SERUM 52 ug/dL (50-175); TOTAL IRON BINDING CAPACITY 264 ug/dL (250-450)
[2019-07-12 16:24] LABS: ALBUMIN 3.8 g/dl (3.4-5.0); BILIRUBIN,TOTAL 0.3 mg/dL (0.2-1); BLOOD UREA NITROGEN 8.1 mg/dL (7-18); CALCIUM 8.9 mg/dL (8.5-10.1); CREATININE 0.6 mg/dL (0.55-1.3); POTASSIUM 3.7 mmol/L (3.5-5.1); TOT PROT 7.5 g/dl (6.4-8.2)
== END 2019-07-12 16:05 | disposition home or self-care (01) ==
LOC: JONCCHEMO 07:08 → J7W 15:45 → JONCCHEMO 16:05
PROVIDERS: ATTEND Internal Medicine Hematology & Oncology
DX: Z51.11 Encounter for antineoplastic chemotherapy (principal); C50.412 Malignant neoplasm of upper-outer quadrant of left female breast
CPT/HCPCS: 36415; 80053; 82728; 83540; 83550; 85025; 96402; J9202

== ENCOUNTER 2019-08-09 07:04 | Day surgery (SDC) | payer BC, OTHER ==
[2019-08-09] MEDS ORDERED: GOSERELIN ACETATE 3.6 MG IMPLANT SYRINGE SQ ONE (10:00)
[2019-08-09] MEDS ORDERED: LIDOCAINE HCL 1%, 10 MG/ML (20ML VIAL) ID ONE (10:00)
[2019-08-09 10:45] LABS: BASO % 0.5 % (0-2.0); HEMATOCRIT 36.6 % (32.4-45.2); HEMOGLOBIN 12.6 GM/dL (10.7-15.3); LYMPH % 31.8 % (8-40); MCH 30.8 pg (25.7-33.7); MCHC 34.4 g/dl (32.0-36.0); MEAN CELL VOLUME 89.7 fl (80-96); MEAN PLT VOLUME 8.8 fl (7.5-11.1); MONO % 9.9 % (3.8-10.2); NEUT % 54.8 % (42.8-82.8); PLATELET COUNT 200 K/MM3 (134-434); RBC 4.08 M/mm3 (3.60-5.2); RDW 13.5 % (11.6-15.6); WHITE BLOOD COUNT 3.5 K/mm3 (4.0-10.0)
[2019-08-09 11:16] LABS: ALBUMIN 3.7 g/dl (3.4-5.0); BILIRUBIN,TOTAL 0.5 mg/dL (0.2-1); CALCIUM 9.1 mg/dL (8.5-10.1); CREATININE 0.7 mg/dL (0.55-1.3); MAGNESIUM 2.2 mg/dL (1.8-2.4); POTASSIUM 4.1 mmol/L (3.5-5.1); TOT PROT 7.3 g/dl (6.4-8.2)
[2019-08-09 14:31] VITALS: BP 108/58; PULSE 76; TEMP 98.6
== END 2019-08-09 11:20 | disposition home or self-care (01) ==
LOC: JONCCHEMO 07:04 → J7W 11:03 → JONCCHEMO 11:20
PROVIDERS: ATTEND Internal Medicine Hematology & Oncology
DX: Z51.11 Encounter for antineoplastic chemotherapy (principal); C50.412 Malignant neoplasm of upper-outer quadrant of left female breast
CPT/HCPCS: 36415; 80053; 83735; 85025; 96402; J9202

== ENCOUNTER → 2019-12-13 | Day surgery (SDC) | payer BC, OTHER ==
[2019-12-13 15:44] LABS: BASO % 0.3 % (0-2.0); EOS % 1.5 % (0-4.5); HEMATOCRIT 37.4 % (32.4-45.2); HEMOGLOBIN 12.5 GM/dL (10.7-15.3); LYMPH % 28.1 % (8-40); MCH 30.2 pg (25.7-33.7); MCHC 33.4 g/dl (32.0-36.0); MEAN CELL VOLUME 90.3 fl (80-96); MEAN PLT VOLUME 9.2 fl (7.5-11.1); NEUT % 60.1 % (42.8-82.8); PLATELET COUNT 219 K/MM3 (134-434); RBC 4.13 M/mm3 (3.60-5.2); RDW 13.9 % (11.6-15.6)
[2019-12-13 16:07] VITALS: BP 106/65; PULSE 112; TEMP 99.2
[2019-12-13 17:16] LABS: ALBUMIN 3.8 g/dl (3.4-5.0); BILIRUBIN,TOTAL 0.5 mg/dL (0.2-1); BLOOD UREA NITROGEN 14.6 mg/dL (7-18); CALCIUM 8.8 mg/dL (8.5-10.1); CREATININE 0.7 mg/dL (0.55-1.3); POTASSIUM 3.4 mmol/L (3.5-5.1); TOT PROT 7.5 g/dl (6.4-8.2)
== END | disposition home or self-care (01) ==
LOC: JONCCHEMO 06:54
PROVIDERS: ATTEND Internal Medicine Hematology & Oncology
DX: Z51.11 Encounter for antineoplastic chemotherapy (principal); C50.412 Malignant neoplasm of upper-outer quadrant of left female breast
CPT/HCPCS: 36415; 80053; 82306; 82728; 83540; 83550; 85025; 96402; J9202

== ENCOUNTER 2020-01-10 07:18 | Day surgery (SDC) | payer BC, OTHER ==
[2020-01-10 09:12] LABS: BASO % 0.3 % (0-2.0); EOS % 4.5 % (0-4.5); HEMATOCRIT 40.5 % (32.4-45.2); HEMOGLOBIN 13.4 GM/dL (10.7-15.3); LYMPH % 25.9 % (8-40); MCHC 33.1 g/dl (32.0-36.0); MEAN CELL VOLUME 90.7 fl (80-96); MEAN PLT VOLUME 8.8 fl (7.5-11.1); MONO % 9.8 % (3.8-10.2); NEUT % 59.5 % (42.8-82.8); PLATELET COUNT 206 K/MM3 (134-434); RBC 4.47 M/mm3 (3.60-5.2); RDW 13.1 % (11.6-15.6); WHITE BLOOD COUNT 4.7 K/mm3 (4.0-10.0)
[2020-01-10] MEDS ORDERED: GOSERELIN ACETATE 3.6 MG IMPLANT SYRINGE SQ ONE (10:00)
[2020-01-10] MEDS ORDERED: LIDOCAINE HCL 1%, 10 MG/ML (20ML VIAL) ID ONE (10:00)
[2020-01-10 10:10] LABS: ALBUMIN 3.9 g/dl (3.4-5.0); BILIRUBIN,TOTAL 0.3 mg/dL (0.2-1); BLOOD UREA NITROGEN 10.6 mg/dL (7-18); CALCIUM 9.6 mg/dL (8.5-10.1); CREATININE 0.7 mg/dL (0.55-1.3); TOT PROT 8.3 g/dl (6.4-8.2)
[2020-01-10 15:35] VITALS: BP 108/72; PULSE 86; TEMP 98.6
== END 2020-01-10 10:15 | disposition home or self-care (01) ==
LOC: JONCCHEMO 07:18
PROVIDERS: ATTEND Internal Medicine Hematology & Oncology
DX: Z51.11 Encounter for antineoplastic chemotherapy (principal); C50.412 Malignant neoplasm of upper-outer quadrant of left female breast
CPT/HCPCS: 36415; 80053; 85025; 96372; J9202

== ENCOUNTER 2020-02-07 07:21 | Day surgery (SDC) | payer BC, OTHER ==
[2020-02-07] MEDS ORDERED: GOSERELIN ACETATE 3.6 MG IMPLANT SYRINGE SQ ONE (08:30)
[2020-02-07] MEDS ORDERED: LIDOCAINE HCL 1%, 10 MG/ML (20ML VIAL) ID ONE (08:30)
[2020-02-07 09:21] LABS: BASO % 0.5 % (0-2.0); EOS % 3.9 % (0-4.5); HEMATOCRIT 38.4 % (32.4-45.2); HEMOGLOBIN 12.7 GM/dL (10.7-15.3); LYMPH % 25.8 % (8-40); MEAN PLT VOLUME 9.1 fl (7.5-11.1); MONO % 9.3 % (3.8-10.2); NEUT % 60.5 % (42.8-82.8); PLATELET COUNT 180 K/MM3 (134-434); RBC 4.23 M/mm3 (3.60-5.2); RDW 13.3 % (11.6-15.6); WHITE BLOOD COUNT 5.3 K/mm3 (4.0-10.0)
[2020-02-07 09:57] LABS: ALBUMIN 3.6 g/dl (3.4-5.0); BILIRUBIN,TOTAL 0.4 mg/dL (0.2-1); BLOOD UREA NITROGEN 10.8 mg/dL (7-18); POTASSIUM 4.1 mmol/L (3.5-5.1); TOT PROT 7.4 g/dl (6.4-8.2)
[2020-02-07 10:33] LABS: CALCIUM 9.2 mg/dL (8.5-10.1); CREATININE 0.6 mg/dL (0.55-1.3)
[2020-02-07 13:49] VITALS: BP 129/75; PULSE 75; TEMP 98.5
== END 2020-02-07 08:20 | disposition home or self-care (01) ==
LOC: JONCCHEMO 07:21
PROVIDERS: ATTEND Internal Medicine Hematology & Oncology
DX: Z51.11 Encounter for antineoplastic chemotherapy (principal); C50.412 Malignant neoplasm of upper-outer quadrant of left female breast
CPT/HCPCS: 36415; 80053; 82670; 85025; 96402; J9202

== ENCOUNTER 2020-03-06 07:13 | Day surgery (SDC) | payer BC, OTHER ==
[2020-03-06] MEDS ORDERED: LIDOCAINE HCL 1%, 10 MG/ML (20ML VIAL) ID ONE (10:00)
[2020-03-06] MEDS ORDERED: GOSERELIN ACETATE 3.6 MG IMPLANT SYRINGE SQ ONE (10:00)
[2020-03-06 11:46] LABS: BASO % 0.2 % (0-2.0); EOS % 0.7 % (0-4.5); HEMATOCRIT 37.9 % (32.4-45.2); HEMOGLOBIN 12.8 GM/dL (10.7-15.3); MCH 30.3 pg (25.7-33.7); MCHC 33.9 g/dl (32.0-36.0); MEAN CELL VOLUME 89.5 fl (80-96); MEAN PLT VOLUME 8.7 fl (7.5-11.1); MONO % 6.5 % (3.8-10.2); NEUT % 77.6 % (42.8-82.8); PLATELET COUNT 200 K/MM3 (134-434); RBC 4.23 M/mm3 (3.60-5.2); RDW 13.3 % (11.6-15.6); WHITE BLOOD COUNT 7.8 K/mm3 (4.0-10.0)
[2020-03-06 12:17] LABS: BILIRUBIN,TOTAL 0.5 mg/dL (0.2-1); BLOOD UREA NITROGEN 13.6 mg/dL (7-18); CALCIUM 9.1 mg/dL (8.5-10.1); CREATININE 0.7 mg/dL (0.55-1.3); MAGNESIUM 2.3 mg/dL (1.8-2.4); POTASSIUM 3.9 mmol/L (3.5-5.1); TOT PROT 8.1 g/dl (6.4-8.2)
[2020-03-06 15:47] VITALS: BP 109/59; PULSE 88; TEMP 98.2
== END 2020-03-06 11:20 | disposition home or self-care (01) ==
LOC: JONCCHEMO 07:13
PROVIDERS: ATTEND Internal Medicine Hematology & Oncology
DX: Z51.11 Encounter for antineoplastic chemotherapy (principal); C50.412 Malignant neoplasm of upper-outer quadrant of left female breast
CPT/HCPCS: 36415; 80053; 83735; 85025; 96402; J9202

== ENCOUNTER 2020-04-03 07:24 | Day surgery (SDC) | payer BC, OTHER ==
--- OUTSIDE RECORDS SUMMARY | 2020-04-03 07:28 | XMS ---
:1975 Author Organization [facility] Support Name Relationship Address Phone [facility] Unavailable [address] [place] [address] [place] [address] [place] [address] Re-disclosure Warning The records that you are about to access may contain information from federally- assisted alcohol or drug abuse programs. If such information is present, then the following federally mandated warning applies: This information has been disclosed to you from records protected by federal confidentiality rules (42 CFR part 2). The federal rules prohibit you from making any further disclosure of this information unless further disclosure is expressly permitted by the written consent of the person to whom it pertains or as otherwise permitted by 42 CFR part 2. A general authorization for the release of medical or other information is NOT sufficient for this purpose. The Federal rules restrict any use of the information to criminally investigate or prosecute any alcohol or drug abuse patient.The records that you are about to access may contain highly sensitive health information, the redisclosure of which is protected by Article 27-F of the [facility] Public Health law. If you continue you may haveaccess to information: Regarding HIV / AIDS; Provided by facilities licensed or operated by the [facility] Office of Mental Health; or Provided by the [facility] Office for People With Developmental Disabilities. If such information is present, then the following [facility] mandated warning applies: This information has been disclosed to you from confidential records which are protected by state law. State law prohibits you from making any further disclosure of this information without the specific written consent of the person to whom it pertains, or as otherwise permitted by law. Any unauthorized further disclosure in violation of state law may result in a fine or alf sentence or both. A general authorization for the release of medical or other information is NOT sufficient authorization for further disclosure. Insurance Providers Payer Policy type Policy ID Covered Covered republican's Policy Pl an name / Coverage republican ID relationship to [place] Inf ormation type [place] PPO [id number] SP [id number] GHI PPO [id number] SP [id number] PPO [id number] SP [id number] I CBP [id number] SP [id number] OUTPT [id number] [id number] SP [id number] PPO [id number] SP [id number] I CBP [id number] SP [id number] OUTPT
[2020-04-03] MEDS ORDERED: LIDOCAINE HCL 1%, 10 MG/ML (20ML VIAL) ID ONE (10:00)
[2020-04-03] MEDS ORDERED: GOSERELIN ACETATE 3.6 MG IMPLANT SYRINGE SQ ONE (10:00)
[2020-04-03 15:47] LABS: BASO % 0.4 % (0-2.0); EOS % 2.4 % (0-4.5); HEMATOCRIT 37.3 % (32.4-45.2); HEMOGLOBIN 12.7 GM/dL (10.7-15.3); LYMPH % 28.7 % (8-40); MCH 30.6 pg (25.7-33.7); MCHC 34.2 g/dl (32.0-36.0); MEAN CELL VOLUME 89.5 fl (80-96); MEAN PLT VOLUME 8.9 fl (7.5-11.1); MONO % 12.3 % (3.8-10.2); NEUT % 56.2 % (42.8-82.8); PLATELET COUNT 191 K/MM3 (134-434); RBC 4.17 M/mm3 (3.60-5.2); RDW 13.5 % (11.6-15.6); WHITE BLOOD COUNT 4.1 K/mm3 (4.0-10.0)
[2020-04-03 16:08] LABS: POTASSIUM 3.4 mmol/L (3.5-5.1)
[2020-04-03 16:10] LABS: BLOOD UREA NITROGEN 10.6 mg/dL (7-18)
[2020-04-03 16:11] LABS: ALBUMIN 3.7 g/dl (3.4-5.0)
[2020-04-03 16:14] LABS: CREATININE 0.6 mg/dL (0.55-1.3)
[2020-04-03 16:16] LABS: BILIRUBIN,TOTAL 0.3 mg/dL (0.2-1); TOT PROT 7.5 g/dl (6.4-8.2)
[2020-04-03 16:33] VITALS: BP 116/48; PULSE 87; TEMP 98.6
== END 2020-04-03 16:30 | disposition home or self-care (01) ==
LOC: JONCCHEMO 07:24
PROVIDERS: ATTEND Internal Medicine Hematology & Oncology
DX: Z51.11 Encounter for antineoplastic chemotherapy (principal); C50.412 Malignant neoplasm of upper-outer quadrant of left female breast
CPT/HCPCS: 36415; 80053; 82306; 82670; 82728; 83540; 83550; 84703; 85025; 96402; J9202

== ENCOUNTER 2020-05-01 07:17 | Day surgery (SDC) | payer BC, OTHER ==
[2020-05-01] MEDS ORDERED: LIDOCAINE HCL 1%, 10 MG/ML (20ML VIAL) ID ONE (10:00)
[2020-05-01] MEDS ORDERED: GOSERELIN ACETATE 3.6 MG IMPLANT SYRINGE SQ ONE (12:00)
[2020-05-01 15:51] LABS: BASO % 0.2 % (0-2.0); EOS % 2.9 % (0-4.5); HEMATOCRIT 37.8 % (32.4-45.2); HEMOGLOBIN 12.9 GM/dL (10.7-15.3); LYMPH % 16.6 % (8-40); MCH 30.8 pg (25.7-33.7); MCHC 34.2 g/dl (32.0-36.0); MEAN CELL VOLUME 90.2 fl (80-96); MEAN PLT VOLUME 8.9 fl (7.5-11.1); MONO % 7.8 % (3.8-10.2); NEUT % 72.5 % (42.8-82.8); PLATELET COUNT 222 K/MM3 (134-434); RBC 4.19 M/mm3 (3.60-5.2); RDW 13.8 % (11.6-15.6); WHITE BLOOD COUNT 8.3 K/mm3 (4.0-10.0)
[2020-05-01 16:12] LABS: POTASSIUM 3.3 mmol/L (3.5-5.1)
[2020-05-01 16:14] LABS: CALCIUM 9.1 mg/dL (8.5-10.1)
[2020-05-01 16:15] LABS: ALBUMIN 3.7 g/dl (3.4-5.0); BLOOD UREA NITROGEN 12.1 mg/dL (7-18)
[2020-05-01 16:17] LABS: IRON SERUM 41 ug/dL (50-175); TOTAL IRON BINDING CAPACITY 248 ug/dL (250-450)
[2020-05-01 16:18] LABS: CREATININE 0.7 mg/dL (0.55-1.3)
[2020-05-01 16:20] LABS: BILIRUBIN,TOTAL 0.4 mg/dL (0.2-1)
[2020-05-01 16:40] VITALS: BP 118/77; PULSE 100; TEMP 98.3
== END 2020-05-01 16:25 | disposition home or self-care (01) ==
LOC: JONCCHEMO 07:17
PROVIDERS: ATTEND Internal Medicine Hematology & Oncology
DX: Z51.11 Encounter for antineoplastic chemotherapy (principal); C50.412 Malignant neoplasm of upper-outer quadrant of left female breast
CPT/HCPCS: 36415; 80053; 82306; 82607; 82670; 82728; 83540; 83550; 85025; 96402; J9202

== ENCOUNTER 2020-05-29 06:23 | Day surgery (SDC) | payer BC, OTHER ==
[2020-05-29] MEDS ORDERED: LIDOCAINE HCL 1%, 10 MG/ML (20ML VIAL) ID ONE (10:00)
[2020-05-29] MEDS ORDERED: GOSERELIN ACETATE 3.6 MG IMPLANT SYRINGE SQ ONE (10:00)
[2020-05-29 13:47] LABS: BASO % 0.5 % (0-2.0); EOS % 2.4 % (0-4.5); HEMATOCRIT 38.8 % (32.4-45.2); HEMOGLOBIN 12.5 GM/dL (10.7-15.3); LYMPH % 29.3 % (8-40); MCH 28.9 pg (25.7-33.7); MCHC 32.3 g/dl (32.0-36.0); MEAN CELL VOLUME 89.6 fl (80-96); MEAN PLT VOLUME 8.9 fl (7.5-11.1); MONO % 8.5 % (3.8-10.2); NEUT % 59.3 % (42.8-82.8); PLATELET COUNT 215 K/MM3 (134-434); RBC 4.33 M/mm3 (3.60-5.2); RDW 13.8 % (11.6-15.6)
[2020-05-29 14:03] LABS: POTASSIUM 3.6 mmol/L (3.5-5.1)
[2020-05-29 14:06] LABS: CALCIUM 9.1 mg/dL (8.5-10.1)
[2020-05-29 14:07] LABS: ALBUMIN 3.7 g/dl (3.4-5.0); BLOOD UREA NITROGEN 9.3 mg/dL (7-18)
[2020-05-29 14:10] LABS: CREATININE 0.6 mg/dL (0.55-1.3)
[2020-05-29 14:12] LABS: BILIRUBIN,TOTAL 0.5 mg/dL (0.2-1); TOT PROT 7.9 g/dl (6.4-8.2)
[2020-05-29 15:47] VITALS: BP 126/59; PULSE 85; TEMP 97.9
== END 2020-05-29 13:00 | disposition home or self-care (01) ==
LOC: JONCCHEMO 06:23
PROVIDERS: ATTEND Internal Medicine Hematology & Oncology
DX: C50.412 Malignant neoplasm of upper-outer quadrant of left female breast (principal)
CPT/HCPCS: 36415; 80053; 82306; 85025; 96402; J9202

== ENCOUNTER 2020-07-24 07:25 | Day surgery (SDC) | payer BC, OTHER ==
[2020-07-24] MEDS ORDERED: LIDOCAINE HCL 1%, 10 MG/ML (20ML VIAL) ID ONE (10:00)
[2020-07-24] MEDS ORDERED: GOSERELIN ACETATE 3.6 MG IMPLANT SYRINGE SQ ONE (10:00)
[2020-07-24 11:16] LABS: BASO % 0.3 % (0-2.0); EOS % 3.1 % (0-4.5); HEMATOCRIT 37.3 % (32.4-45.2); HEMOGLOBIN 12.4 GM/dL (10.7-15.3); LYMPH % 29.7 % (8-40); MCH 29.8 pg (25.7-33.7); MCHC 33.3 g/dl (32.0-36.0); MEAN CELL VOLUME 89.6 fl (80-96); MEAN PLT VOLUME 8.7 fl (7.5-11.1); MONO % 9.3 % (3.8-10.2); NEUT % 57.6 % (42.8-82.8); PLATELET COUNT 221 K/MM3 (134-434); RBC 4.16 M/mm3 (3.60-5.2); RDW 13.5 % (11.6-15.6); WHITE BLOOD COUNT 4.2 K/mm3 (4.0-10.0)
[2020-07-24 11:49] LABS: POTASSIUM 3.6 mmol/L (3.5-5.1)
[2020-07-24 11:52] LABS: ALBUMIN 3.6 g/dl (3.4-5.0); BLOOD UREA NITROGEN 10.3 mg/dL (7-18); CALCIUM 8.7 mg/dL (8.5-10.1)
[2020-07-24 11:55] LABS: CREATININE 0.6 mg/dL (0.55-1.3)
[2020-07-24 11:56] LABS: BILIRUBIN,TOTAL 0.3 mg/dL (0.2-1); TOT PROT 7.6 g/dl (6.4-8.2)
[2020-07-24 17:13] VITALS: BP 104/57; PULSE 85; TEMP 98.2
== END 2020-07-24 17:13 | disposition home or self-care (01) ==
LOC: JONCCHEMO 07:25
PROVIDERS: ATTEND Internal Medicine Hematology & Oncology
DX: Z51.11 Encounter for antineoplastic chemotherapy (principal); C50.912 Malignant neoplasm of unspecified site of left female breast; M85.80 Other specified disorders of bone density and structure, unspecified site; L40.9 Psoriasis, unspecified
CPT/HCPCS: 36415; 80053; 85025; 96402; J9202

== ENCOUNTER 2020-08-21 07:28 | Day surgery (SDC) | payer BC, OTHER ==
[2020-08-21] MEDS ORDERED: LIDOCAINE HCL 1%, 10 MG/ML (20ML VIAL) ID ONE (10:00)
[2020-08-21] MEDS ORDERED: GOSERELIN ACETATE 3.6 MG IMPLANT SYRINGE SQ ONE (10:00)
[2020-08-21 10:18] LABS: BASO % 0.3 % (0-2.0); EOS % 3.2 % (0-4.5); HEMOGLOBIN 12.9 GM/dL (10.7-15.3); LYMPH % 30.4 % (8-40); MCH 30.1 pg (25.7-33.7); MCHC 33.9 g/dl (32.0-36.0); MEAN CELL VOLUME 88.9 fl (80-96); MEAN PLT VOLUME 8.7 fl (7.5-11.1); MONO % 9.5 % (3.8-10.2); NEUT % 56.6 % (42.8-82.8); PLATELET COUNT 196 K/MM3 (134-434); RBC 4.27 M/mm3 (3.60-5.2); RDW 13.2 % (11.6-15.6); WHITE BLOOD COUNT 4.5 K/mm3 (4.0-10.0)
[2020-08-21 10:38] LABS: POTASSIUM 3.5 mmol/L (3.5-5.1)
[2020-08-21 10:40] LABS: ALBUMIN 3.7 g/dl (3.4-5.0); BLOOD UREA NITROGEN 10.5 mg/dL (7-18)
[2020-08-21 10:43] LABS: CREATININE 0.7 mg/dL (0.55-1.3)
[2020-08-21 10:45] LABS: BILIRUBIN,TOTAL 0.5 mg/dL (0.2-1); TOT PROT 7.6 g/dl (6.4-8.2)
[2020-08-21 15:12] VITALS: BP 107/55; TEMP 98.3
[2020-08-21 15:14] VITALS: PULSE 52
== END 2020-08-21 10:20 | disposition home or self-care (01) ==
LOC: JONCCHEMO 07:28
PROVIDERS: ATTEND Internal Medicine Hematology & Oncology
DX: Z51.11 Encounter for antineoplastic chemotherapy (principal); C50.912 Malignant neoplasm of unspecified site of left female breast; M85.80 Other specified disorders of bone density and structure, unspecified site
CPT/HCPCS: 36415; 80053; 85025; 96402; J9202

== ENCOUNTER 2020-09-18 07:03 | Day surgery (SDC) | payer BC, OTHER ==
[2020-09-18] MEDS ORDERED: GOSERELIN ACETATE 3.6 MG IMPLANT SYRINGE SQ ONE (10:00)
[2020-09-18] MEDS ORDERED: LIDOCAINE HCL 1%, 10 MG/ML (20ML VIAL) ID ONE (10:00)
[2020-09-18 10:02] LABS: BASO % 0.3 % (0-2.0); HEMATOCRIT 37.3 % (32.4-45.2); HEMOGLOBIN 12.6 GM/dL (10.7-15.3); LYMPH % 30.2 % (8-40); MCH 29.8 pg (25.7-33.7); MCHC 33.8 g/dl (32.0-36.0); MEAN CELL VOLUME 88.3 fl (80-96); MEAN PLT VOLUME 8.7 fl (7.5-11.1); NEUT % 54.5 % (42.8-82.8); PLATELET COUNT 197 K/MM3 (134-434); RBC 4.22 M/mm3 (3.60-5.2); RDW 13.5 % (11.6-15.6); WHITE BLOOD COUNT 3.8 K/mm3 (4.0-10.0)
[2020-09-18 10:10] LABS: POTASSIUM 3.7 mmol/L (3.5-5.1)
[2020-09-18 10:12] LABS: CALCIUM 8.8 mg/dL (8.5-10.1)
[2020-09-18 10:13] LABS: ALBUMIN 3.5 g/dl (3.4-5.0); BLOOD UREA NITROGEN 11.1 mg/dL (7-18)
[2020-09-18 10:16] LABS: CREATININE 0.7 mg/dL (0.55-1.3)
[2020-09-18 10:18] LABS: BILIRUBIN,TOTAL 0.5 mg/dL (0.2-1); TOT PROT 7.4 g/dl (6.4-8.2)
[2020-09-18 15:25] VITALS: BP 106/71; PULSE 77; TEMP 97.1
[2020-09-19 08:08] LABS: FOLLICLE STIMULATING HORMONE 2.5 mIU/mL (.); LUTEINIZING HORMONE 0.6 mIU/mL (.)
== END 2020-09-18 09:40 | disposition home or self-care (01) ==
LOC: JONCCHEMO 07:03
PROVIDERS: ATTEND Internal Medicine Hematology & Oncology
DX: Z51.11 Encounter for antineoplastic chemotherapy (principal); C50.412 Malignant neoplasm of upper-outer quadrant of left female breast
CPT/HCPCS: 36415; 80053; 82670; 83001; 83002; 85025; 96402; J9202

== ENCOUNTER 2020-10-15 15:18 | Day surgery (SDC) | payer BC, OTHER ==
[2020-10-15] MEDS ORDERED: GOSERELIN ACETATE 3.6 MG IMPLANT SYRINGE SQ ONE (15:30)
[2020-10-15 17:01] VITALS: BP 120/70; PULSE 70; TEMP 98
[2020-10-16] MEDS ORDERED: LIDOCAINE HCL 1%, 10 MG/ML (20ML VIAL) ID ONE (10:00)
== END 2020-10-15 15:50 | disposition home or self-care (01) ==
LOC: JONCCHEMO 15:18
PROVIDERS: ATTEND Internal Medicine Hematology & Oncology
DX: Z51.11 Encounter for antineoplastic chemotherapy (principal); C50.412 Malignant neoplasm of upper-outer quadrant of left female breast
CPT/HCPCS: 96402; J9202

== ENCOUNTER 2020-11-13 07:15 | Day surgery (SDC) | payer BC, OTHER ==
[2020-11-13] MEDS ORDERED: GOSERELIN ACETATE 3.6 MG IMPLANT SYRINGE SQ ONE (10:00)
[2020-11-13] MEDS ORDERED: LIDOCAINE HCL 1%, 10 MG/ML (20ML VIAL) ID ONE (10:00)
[2020-11-13 16:10] LABS: BASO % 0.5 % (0-2.0); EOS % 3.4 % (0-4.5); HEMATOCRIT 36.6 % (32.4-45.2); HEMOGLOBIN 12.3 GM/dL (10.7-15.3); LYMPH % 36.8 % (8-40); MCH 29.7 pg (25.7-33.7); MCHC 33.5 g/dl (32.0-36.0); MEAN CELL VOLUME 88.6 fl (80-96); MEAN PLT VOLUME 8.6 fl (7.5-11.1); MONO % 9.6 % (3.8-10.2); NEUT % 49.7 % (42.8-82.8); PLATELET COUNT 248 K/MM3 (134-434); RBC 4.13 M/mm3 (3.60-5.2); RDW 13.9 % (11.6-15.6)
[2020-11-13 16:25] LABS: CALCIUM 8.5 mg/dL (8.5-10.1)
[2020-11-13 16:26] LABS: ALBUMIN 3.8 g/dl (3.4-5.0); BLOOD UREA NITROGEN 8.4 mg/dL (7-18)
[2020-11-13 16:29] LABS: CREATININE 0.7 mg/dL (0.55-1.3)
[2020-11-13 16:30] LABS: BILIRUBIN,TOTAL 0.2 mg/dL (0.2-1)
[2020-11-13 17:38] VITALS: BP 106/52; PULSE 79; TEMP 98.3
== END 2020-11-13 16:30 | disposition home or self-care (01) ==
LOC: JONCCHEMO 07:15
PROVIDERS: ATTEND Internal Medicine Hematology & Oncology
DX: Z51.11 Encounter for antineoplastic chemotherapy (principal); C50.412 Malignant neoplasm of upper-outer quadrant of left female breast
CPT/HCPCS: 36415; 80053; 82306; 82670; 85025; 96402; J9202

== ENCOUNTER 2020-12-11 07:19 | Day surgery (SDC) | payer BC, OTHER ==
[2020-12-11] MEDS ORDERED: ZOLEDRONIC ACID 4 MG in SODIUM CHLORIDE 100 ML IVPB ONE (14:55)
[2020-12-11] MEDS ORDERED: GOSERELIN ACETATE 3.6 MG IMPLANT SYRINGE SQ ONE (15:30)
[2020-12-11] MEDS ORDERED: LIDOCAINE HCL 1%, 10 MG/ML (20ML VIAL) ID ONE (15:30)
[2020-12-11 15:57] VITALS: BP 133/56; PULSE 89; TEMP 98.1
== END 2020-12-11 15:30 | disposition home or self-care (01) ==
LOC: JONCCHEMO 07:19
PROVIDERS: ATTEND Internal Medicine Hematology & Oncology
DX: Z51.11 Encounter for antineoplastic chemotherapy (principal); C50.412 Malignant neoplasm of upper-outer quadrant of left female breast
CPT/HCPCS: 96402; J9202

== ENCOUNTER 2021-01-15 07:37 | Day surgery (SDC) | payer BC, OTHER ==
[2021-01-15] MEDS ORDERED: ACETAMINOPHEN 325 MG TABLET (FP) PO ONE (09:14)
[2021-01-15 09:22] LABS: HEMOGLOBIN 12.7 GM/dL (10.7-15.3); MCH 30.4 pg (25.7-33.7); MCHC 34.2 g/dl (32.0-36.0); MEAN CELL VOLUME 88.8 fl (80-96); MEAN PLT VOLUME 8.2 fl (7.5-11.1); PLATELET COUNT 203 10^3/uL (134-434); RBC 4.17 M/mm3 (3.60-5.2); RDW 13.7 % (11.6-15.6); WHITE BLOOD COUNT 4.7 K/mm3 (4.0-10.0)
[2021-01-15 09:58] LABS: ALBUMIN 3.6 g/dl (3.4-5.0); BLOOD UREA NITROGEN 9.8 mg/dL (7-18); CALCIUM 8.6 mg/dL (8.5-10.1)
[2021-01-15] MEDS ORDERED: GOSERELIN ACETATE 3.6 MG IMPLANT SYRINGE SQ ONE (10:00)
[2021-01-15] MEDS ORDERED: LIDOCAINE HCL 1%, 10 MG/ML (20ML VIAL) ID ONE (10:00)
[2021-01-15 10:01] LABS: CREATININE 0.7 mg/dL (0.55-1.3)
[2021-01-15 10:03] LABS: BILIRUBIN,TOTAL 0.4 mg/dL (0.2-1); TOT PROT 7.4 g/dl (6.4-8.2)
[2021-01-15] MEDS: ZOLEDRONIC ACID 4 MG in SODIUM CHLORIDE 100 ML IVPB ONE ×2 (10:18→10:25)
[2021-01-15 10:29] LABS: ANISOCYTOSIS 1+; MACROCYTOSIS 0; PLATELET ESTIMATE NORMAL
[2021-01-15 14:47] VITALS: BP 110/72; PULSE 77; TEMP 98.5
== END 2021-01-15 11:00 | disposition home or self-care (01) ==
LOC: JONCCHEMO 07:37
PROVIDERS: ATTEND Internal Medicine Hematology & Oncology
PROC: 3E01305 Introduction of Other Antineoplastic into Subcutaneous Tissue, Percutaneous Approach (ICD-10-PCS; principal; 2021-01-15)
PROC: 3E033GC Introduction of Other Therapeutic Substance into Peripheral Vein, Percutaneous Approach (ICD-10-PCS; 2021-01-15)
DX: Z51.11 Encounter for antineoplastic chemotherapy (principal); C50.412 Malignant neoplasm of upper-outer quadrant of left female breast; M85.80 Other specified disorders of bone density and structure, unspecified site
CPT/HCPCS: 36415; 80053; 85025; 96365; 96401; J3489; J9202

== ENCOUNTER 2021-02-15 07:32 | Day surgery (SDC) | payer BC, OTHER ==
[~2021-02-15 07:32] MED LIST changes: +LIDOCAINE 1% P/F 10 MG/ML VIAL ID ONE; -LIDOCAINE HCL 1%, 10 MG/ML (20ML VIAL) ID ONE
[2021-02-15] MEDS ORDERED: LIDOCAINE 1% P/F 10 MG/ML VIAL ID ONE (10:00)
[2021-02-15] MEDS ORDERED: GOSERELIN ACETATE 3.6 MG IMPLANT SYRINGE SQ ONE (10:00)
[2021-02-15 13:43] LABS: BASO % 0.3 % (0-2.0); EOS % 4.5 % (0-4.5); HEMATOCRIT 37.5 % (32.4-45.2); HEMOGLOBIN 12.8 GM/dL (10.7-15.3); LYMPH % 31.2 % (8-40); MCH 30.5 pg (25.7-33.7); MEAN CELL VOLUME 89.5 fl (80-96); MEAN PLT VOLUME 8.5 fl (7.5-11.1); MONO % 8.2 % (3.8-10.2); NEUT % 55.8 % (42.8-82.8); PLATELET COUNT 209 10^3/uL (134-434); RBC 4.19 M/mm3 (3.60-5.2); RDW 13.9 % (11.6-15.6); WHITE BLOOD COUNT 4.9 K/mm3 (4.0-10.0)
[2021-02-15 16:00] VITALS: BP 108/68; PULSE 84; TEMP 97.9
== END 2021-02-15 13:00 | disposition home or self-care (01) ==
LOC: JONCCHEMO 07:32
PROVIDERS: ATTEND Internal Medicine Hematology & Oncology
DX: Z51.11 Encounter for antineoplastic chemotherapy (principal); C50.412 Malignant neoplasm of upper-outer quadrant of left female breast; L40.50 Arthropathic psoriasis, unspecified
CPT/HCPCS: 36415; 85025; 96402; J9202

== ENCOUNTER 2021-03-19 07:26 | Day surgery (SDC) | payer BC, OTHER ==
[2021-03-19] MEDS ORDERED: GOSERELIN ACETATE 3.6 MG IMPLANT SYRINGE SQ ONE (13:00)
[2021-03-19] MEDS ORDERED: LIDOCAINE 1% P/F 10 MG/ML VIAL ID ONE (13:00)
[2021-03-19 16:13] LABS: BASO % 0.5 % (0-2.0); EOS % 3.2 % (0-4.5); HEMATOCRIT 35.2 % (32.4-45.2); LYMPH % 32.2 % (8-40); MEAN CELL VOLUME 88.3 fl (80-96); MONO % 8.6 % (3.8-10.2); NEUT % 55.5 % (42.8-82.8); PLATELET COUNT 230 10^3/uL (134-434); RBC 3.99 M/mm3 (3.60-5.2); RDW 13.2 % (11.6-15.6)
[2021-03-19 16:37] LABS: ALBUMIN 3.6 g/dl (3.4-5.0); BLOOD UREA NITROGEN 10.4 mg/dL (7-18); CALCIUM 8.3 mg/dL (8.5-10.1)
[2021-03-19 16:40] LABS: CREATININE 0.6 mg/dL (0.55-1.3)
[2021-03-19 16:42] LABS: BILIRUBIN,TOTAL 0.7 mg/dL (0.2-1); TOT PROT 7.6 g/dl (6.4-8.2)
[2021-03-19 17:16] VITALS: BP 114/62; PULSE 77; TEMP 99
== END 2021-03-19 17:00 | disposition home or self-care (01) ==
LOC: JONCCHEMO 07:26
PROVIDERS: ATTEND Internal Medicine Hematology & Oncology
DX: Z51.11 Encounter for antineoplastic chemotherapy (principal); C50.412 Malignant neoplasm of upper-outer quadrant of left female breast
CPT/HCPCS: 36415; 80053; 82670; 84439; 84443; 84478; 85025; 96402; J9202

== ENCOUNTER 2021-04-16 07:49 | Day surgery (SDC) | payer BC, OTHER ==
[2021-04-16] MEDS ORDERED: GOSERELIN ACETATE 3.6 MG IMPLANT SYRINGE SQ ONE (10:00)
[2021-04-16] MEDS ORDERED: LIDOCAINE HCL 1%, 10 MG/ML (20ML VIAL) ID ONE (10:00)
[2021-04-16 16:25] LABS: BASO % 0.5 % (0-2.0); EOS % 5.2 % (0-4.5); HEMATOCRIT 34.8 % (32.4-45.2); HEMOGLOBIN 12.1 GM/dL (10.7-15.3); LYMPH % 35.2 % (8-40); MCH 30.2 pg (25.7-33.7); MCHC 34.9 g/dl (32.0-36.0); MEAN CELL VOLUME 86.5 fl (80-96); MEAN PLT VOLUME 8.1 fl (7.5-11.1); MONO % 8.7 % (3.8-10.2); NEUT % 50.4 % (42.8-82.8); PLATELET COUNT 192 10^3/uL (134-434); RBC 4.02 M/mm3 (3.60-5.2); RDW 13.5 % (11.6-15.6); WHITE BLOOD COUNT 5.1 K/mm3 (4.0-10.0)
[2021-04-16 16:58] LABS: CALCIUM 9.1 mg/dL (8.5-10.1)
[2021-04-16 16:59] LABS: ALBUMIN 3.6 g/dl (3.4-5.0); BLOOD UREA NITROGEN 10.8 mg/dL (7-18)
[2021-04-16 17:02] LABS: CREATININE 0.7 mg/dL (0.55-1.3)
[2021-04-16 17:03] LABS: BILIRUBIN,TOTAL 0.5 mg/dL (0.2-1)
[2021-04-16 17:04] LABS: TOT PROT 7.5 g/dl (6.4-8.2)
[2021-04-16 17:05] VITALS: BP 98/59; PULSE 90; TEMP 98.2
== END 2021-04-16 16:00 | disposition home or self-care (01) ==
LOC: JONCCHEMO 07:49
PROVIDERS: ATTEND Internal Medicine Hematology & Oncology
DX: Z51.11 Encounter for antineoplastic chemotherapy (principal); C50.412 Malignant neoplasm of upper-outer quadrant of left female breast
CPT/HCPCS: 36415; 80053; 82306; 82670; 82728; 83540; 83550; 85025; 96402; J9202

== ENCOUNTER 2021-05-21 07:59 | Day surgery (SDC) | payer BC, OTHER ==
[2021-05-21] MEDS ORDERED: GOSERELIN ACETATE 3.6 MG IMPLANT SYRINGE SQ ONE (10:00)
[2021-05-21] MEDS ORDERED: LIDOCAINE HCL 1%, 10 MG/ML (20ML VIAL) ID ONE (10:00)
[2021-05-21 16:39] VITALS: BP 117/45; PULSE 86; TEMP 98.2
[2021-05-21 16:43] LABS: BASO % 0.4 % (0-2.0); EOS % 5.8 % (0-4.5); HEMATOCRIT 37.9 % (32.4-45.2); HEMOGLOBIN 12.9 GM/dL (10.7-15.3); LYMPH % 32.6 % (8-40); MCH 30.1 pg (25.7-33.7); MEAN CELL VOLUME 88.5 fl (80-96); NEUT % 52.2 % (42.8-82.8); PLATELET COUNT 193 10^3/uL (134-434); RBC 4.28 M/mm3 (3.60-5.2); RDW 14.1 % (11.6-15.6); WHITE BLOOD COUNT 5.7 K/mm3 (4.0-10.0)
[2021-05-21 17:10] LABS: ALBUMIN 3.6 g/dl (3.4-5.0); BLOOD UREA NITROGEN 8.7 mg/dL (7-18)
[2021-05-21 17:13] LABS: CREATININE 0.7 mg/dL (0.55-1.3)
[2021-05-21 17:14] LABS: TOT PROT 7.3 g/dl (6.4-8.2)
[2021-05-21 17:15] LABS: BILIRUBIN,TOTAL 0.4 mg/dL (0.2-1)
== END 2021-05-21 15:20 | disposition home or self-care (01) ==
LOC: JONCCHEMO 07:59
PROVIDERS: ATTEND Internal Medicine Hematology & Oncology
DX: Z51.11 Encounter for antineoplastic chemotherapy (principal); C50.412 Malignant neoplasm of upper-outer quadrant of left female breast
CPT/HCPCS: 36415; 80053; 82728; 83540; 83550; 85025; 96402; J9202

== ENCOUNTER 2021-06-25 10:58 | Day surgery (SDC) | payer BC, OTHER ==
[2021-06-25] MEDS ORDERED: GOSERELIN ACETATE 3.6 MG IMPLANT SYRINGE SQ ONE (13:45)
[2021-06-25] MEDS ORDERED: LIDOCAINE HCL 1%, 10 MG/ML (20ML VIAL) ID ONE (13:45)
[2021-06-25 16:28] LABS: BASO % 0.4 % (0-2.0); EOS % 3.9 % (0-4.5); HEMATOCRIT 36.5 % (32.4-45.2); HEMOGLOBIN 12.1 GM/dL (10.7-15.3); LYMPH % 32.6 % (8-40); MCH 29.4 pg (25.7-33.7); MCHC 33.2 g/dl (32.0-36.0); MEAN CELL VOLUME 88.6 fl (80-96); MEAN PLT VOLUME 8.8 fl (7.5-11.1); MONO % 7.9 % (3.8-10.2); NEUT % 55.2 % (42.8-82.8); PLATELET COUNT 206 10^3/uL (134-434); RBC 4.12 M/mm3 (3.60-5.2); RDW 13.7 % (11.6-15.6); WHITE BLOOD COUNT 5.4 K/mm3 (4.0-10.0)
[2021-06-25 16:54] LABS: ALBUMIN 3.8 g/dl (3.4-5.0); CALCIUM 9.4 mg/dL (8.5-10.1)
[2021-06-25 16:55] LABS: BLOOD UREA NITROGEN 11.2 mg/dL (7-18)
[2021-06-25 16:57] LABS: CREATININE 0.7 mg/dL (0.55-1.3)
[2021-06-25 16:59] LABS: TOT PROT 7.3 g/dl (6.4-8.2)
[2021-06-25 17:00] LABS: BILIRUBIN,TOTAL 0.6 mg/dL (0.2-1)
[2021-06-25 17:05] VITALS: BP 103/70; PULSE 78; TEMP 98.3
== END 2021-06-25 15:40 | disposition home or self-care (01) ==
LOC: JONCCHEMO 10:58
PROVIDERS: ATTEND Internal Medicine Hematology & Oncology
DX: Z51.11 Encounter for antineoplastic chemotherapy (principal); C50.412 Malignant neoplasm of upper-outer quadrant of left female breast
CPT/HCPCS: 36415; 80053; 84703; 85025; 96402; J9202

== ENCOUNTER 2021-07-23 07:13 | Day surgery (SDC) | payer BC, OTHER ==
[2021-07-23] MEDS ORDERED: GOSERELIN ACETATE 3.6 MG IMPLANT SYRINGE SQ ONE (11:00)
[2021-07-23] MEDS ORDERED: LIDOCAINE 1% P/F 10 MG/ML VIAL ID ONE (11:00)
[2021-07-23 15:47] LABS: BASO % 0.4 % (0-2.0); EOS % 2.8 % (0-4.5); HEMATOCRIT 34.2 % (32.4-45.2); HEMOGLOBIN 11.7 GM/dL (10.7-15.3); LYMPH % 36.9 % (8-40); MCH 30.1 pg (25.7-33.7); MCHC 34.2 g/dl (32.0-36.0); MEAN CELL VOLUME 88.1 fl (80-96); MONO % 8.7 % (3.8-10.2); NEUT % 51.2 % (42.8-82.8); PLATELET COUNT 211 10^3/uL (134-434); RBC 3.88 M/mm3 (3.60-5.2); RDW 13.5 % (11.6-15.6); WHITE BLOOD COUNT 5.8 K/mm3 (4.0-10.0)
[2021-07-23] MEDS ORDERED: ACETAMINOPHEN 325 MG TABLET (FP) PO ONE (16:08)
[2021-07-23] MEDS ORDERED: ZOLEDRONIC ACID 4 MG in SODIUM CHLORIDE 100 ML IVPB ONE (16:08)
[2021-07-23 16:10] LABS: ALBUMIN 3.7 g/dl (3.4-5.0); BLOOD UREA NITROGEN 11.7 mg/dL (7-18); CALCIUM 8.9 mg/dL (8.5-10.1)
[2021-07-23 16:13] LABS: CREATININE 0.7 mg/dL (0.55-1.3)
[2021-07-23 16:15] LABS: BILIRUBIN,TOTAL 0.5 mg/dL (0.2-1); TOT PROT 7.3 g/dl (6.4-8.2)
[2021-07-23] MEDS ORDERED: ACETAMINOPHEN 325 MG TABLET (FP) ONE (17:05)
[2021-07-23 18:10] VITALS: BP 98/60; PULSE 73; TEMP 98.1
== END 2021-07-23 18:11 | disposition home or self-care (01) ==
LOC: JONCCHEMO 07:13
PROVIDERS: ATTEND Internal Medicine Hematology & Oncology
PROC: 3E033GC Introduction of Other Therapeutic Substance into Peripheral Vein, Percutaneous Approach (ICD-10-PCS; principal; 2021-07-23)
PROC: 3E01305 Introduction of Other Antineoplastic into Subcutaneous Tissue, Percutaneous Approach (ICD-10-PCS; 2021-07-23)
DX: Z51.11 Encounter for antineoplastic chemotherapy (principal); C50.412 Malignant neoplasm of upper-outer quadrant of left female breast
CPT/HCPCS: 36415; 80053; 82306; 85025; 96365; 96402; J3489; J9202

== ENCOUNTER 2021-08-20 07:19 | Day surgery (SDC) | payer BC, OTHER ==
[2021-08-20] MEDS ORDERED: LIDOCAINE HCL 1%, 10 MG/ML (20ML VIAL) ID ONE (10:00)
[2021-08-20] MEDS ORDERED: GOSERELIN ACETATE 3.6 MG IMPLANT SYRINGE SQ ONE (10:00)
== END 2021-08-20 16:00 | disposition home or self-care (01) ==
LOC: JONCNONCHE 07:19
PROVIDERS: ATTEND Internal Medicine Hematology & Oncology
DX: Z51.11 Encounter for antineoplastic chemotherapy (principal); C50.919 Malignant neoplasm of unspecified site of unspecified female breast
CPT/HCPCS: 96401; J9202

== ENCOUNTER 2021-09-17 07:27 | Day surgery (SDC) | payer BC, OTHER ==
[2021-09-17] MEDS ORDERED: LIDOCAINE HCL 1%, 10 MG/ML (20ML VIAL) ID ONE (10:00)
[2021-09-17] MEDS ORDERED: GOSERELIN ACETATE 3.6 MG IMPLANT SYRINGE SQ ONE (10:00)
[2021-09-17 15:53] LABS: BASO % 0.5 % (0-2.0); EOS % 5.3 % (0-4.5); HEMATOCRIT 35.4 % (32.4-45.2); HEMOGLOBIN 12.1 GM/dL (10.7-15.3); LYMPH % 41.9 % (8-40); MCH 30.6 pg (25.7-33.7); MCHC 34.3 g/dl (32.0-36.0); MEAN CELL VOLUME 89.4 fl (80-96); MEAN PLT VOLUME 7.9 fl (7.5-11.1); MONO % 9.7 % (3.8-10.2); NEUT % 42.6 % (42.8-82.8); PLATELET COUNT 199 10^3/uL (134-434); RBC 3.96 M/mm3 (3.60-5.2); RDW 13.2 % (11.6-15.6); WHITE BLOOD COUNT 4.3 K/mm3 (4.0-10.0)
[2021-09-17 16:18] LABS: ALBUMIN 3.8 g/dl (3.4-5.0); BLOOD UREA NITROGEN 8.7 mg/dL (7-18); CALCIUM 8.9 mg/dL (8.5-10.1)
[2021-09-17 16:22] LABS: CREATININE 0.7 mg/dL (0.55-1.3)
[2021-09-17 16:23] LABS: BILIRUBIN,TOTAL 0.2 mg/dL (0.2-1); TOT PROT 7.2 g/dl (6.4-8.2)
[2021-09-17 16:40] VITALS: BP 116/78; PULSE 76; TEMP 98.3
== END 2021-09-17 16:45 | disposition home or self-care (01) ==
LOC: JONCCHEMO 07:27
PROVIDERS: ATTEND Internal Medicine Hematology & Oncology
DX: Z51.11 Encounter for antineoplastic chemotherapy (principal); C50.919 Malignant neoplasm of unspecified site of unspecified female breast
CPT/HCPCS: 36415; 80053; 85025; 96402; J9202

== ENCOUNTER 2021-10-15 07:01 | Day surgery (SDC) | payer BC, OTHER ==
[2021-10-15] MEDS ORDERED: LIDOCAINE HCL 1%, 10 MG/ML (20ML VIAL) ID ONE (10:00)
[2021-10-15] MEDS ORDERED: GOSERELIN ACETATE 3.6 MG IMPLANT SYRINGE SQ ONE (10:00)
[2021-10-15 16:18] VITALS: BP 105/67; PULSE 95; TEMP 98.4
== END 2021-10-15 16:05 | disposition home or self-care (01) ==
LOC: JONCCHEMO 07:01
PROVIDERS: ATTEND Internal Medicine Hematology & Oncology
DX: Z51.11 Encounter for antineoplastic chemotherapy (principal); C50.412 Malignant neoplasm of upper-outer quadrant of left female breast
CPT/HCPCS: 96402; J9202

== ENCOUNTER 2021-11-12 07:20 | Day surgery (SDC) | payer BC, OTHER ==
[2021-11-12] MEDS ORDERED: GOSERELIN ACETATE 3.6 MG IMPLANT SYRINGE SQ ONE (10:00)
[2021-11-12] MEDS ORDERED: LIDOCAINE HCL 1%, 10 MG/ML (20ML VIAL) ID ONE (10:00)
[2021-11-12 15:59] VITALS: BP 132/41; PULSE 99; TEMP 99.2
[2021-11-12 17:18] LABS: BASO % 0.3 % (0-2.0); EOS % 3.6 % (0-4.5); HEMATOCRIT 35.5 % (32.4-45.2); HEMOGLOBIN 12.2 GM/dL (10.7-15.3); LYMPH % 28.7 % (8-40); MCH 30.9 pg (25.7-33.7); MCHC 34.5 g/dl (32.0-36.0); MEAN CELL VOLUME 89.5 fl (80-96); MEAN PLT VOLUME 8.5 fl (7.5-11.1); MONO % 7.6 % (3.8-10.2); NEUT % 59.8 % (42.8-82.8); PLATELET COUNT 225 10^3/uL (134-434); RBC 3.97 M/mm3 (3.60-5.2); WHITE BLOOD COUNT 6.3 K/mm3 (4.0-10.0)
[2021-11-12 17:59] LABS: ALBUMIN 3.6 g/dl (3.4-5.0); BLOOD UREA NITROGEN 9.5 mg/dL (7-18); CALCIUM 8.9 mg/dL (8.5-10.1)
[2021-11-12 18:02] LABS: CREATININE 0.7 mg/dL (0.55-1.3)
[2021-11-12 18:04] LABS: BILIRUBIN,TOTAL 0.4 mg/dL (0.2-1)
== END 2021-11-12 16:10 | disposition home or self-care (01) ==
LOC: JONCCHEMO 07:20
PROVIDERS: ATTEND Internal Medicine Hematology & Oncology
DX: Z51.11 Encounter for antineoplastic chemotherapy (principal); C50.412 Malignant neoplasm of upper-outer quadrant of left female breast
CPT/HCPCS: 36415; 80053; 85025; 96402; J9202

== ENCOUNTER 2021-12-09 14:22 | Day surgery (SDC) | payer BC, OTHER ==
[2021-12-09] MEDS ORDERED: LIDOCAINE HCL 1%, 10 MG/ML (20ML VIAL) ID ONE (15:15)
[2021-12-09] MEDS ORDERED: GOSERELIN ACETATE 3.6 MG IMPLANT SYRINGE SQ ONE (15:15)
[2021-12-09 17:32] VITALS: BP 115/64; PULSE 90; TEMP 97.9
== END 2021-12-09 17:30 | disposition home or self-care (01) ==
LOC: JONCCHEMO 14:22
PROVIDERS: ATTEND Internal Medicine Hematology & Oncology
DX: Z51.11 Encounter for antineoplastic chemotherapy (principal); C50.412 Malignant neoplasm of upper-outer quadrant of left female breast
CPT/HCPCS: 96402; J9202

== ENCOUNTER 2022-01-14 06:46 | Day surgery (SDC) | payer BC, OTHER ==
[2022-01-14] MEDS ORDERED: GOSERELIN ACETATE 3.6 MG IMPLANT SYRINGE SQ ONE (10:00)
[2022-01-14] MEDS ORDERED: LIDOCAINE HCL 1%, 10 MG/ML (20ML VIAL) ID ONE (10:00)
[2022-01-14 13:33] LABS: BASO % 0.4 % (0-2.0); EOS % 6.1 % (0-4.5); HEMATOCRIT 37.5 % (32.4-45.2); HEMOGLOBIN 12.5 GM/dL (10.7-15.3); LYMPH % 34.1 % (8-40); MCHC 33.3 g/dl (32.0-36.0); MEAN CELL VOLUME 90.1 fl (80-96); MEAN PLT VOLUME 8.8 fl (7.5-11.1); MONO % 9.5 % (3.8-10.2); NEUT % 49.9 % (42.8-82.8); PLATELET COUNT 211 10^3/uL (134-434); RBC 4.16 M/mm3 (3.60-5.2); RDW 13.5 % (11.6-15.6); WHITE BLOOD COUNT 4.3 K/mm3 (4.0-10.0)
[2022-01-14 14:01] LABS: CALCIUM 9.3 mg/dL (8.5-10.1)
[2022-01-14 14:02] LABS: ALBUMIN 3.8 g/dl (3.4-5.0); BLOOD UREA NITROGEN 9.9 mg/dL (7-18)
[2022-01-14 14:05] LABS: CREATININE 0.6 mg/dL (0.55-1.3)
[2022-01-14 14:07] LABS: BILIRUBIN,TOTAL 0.5 mg/dL (0.2-1); TOT PROT 7.2 g/dl (6.4-8.2)
[2022-01-14 17:15] VITALS: BP 113/65; PULSE 71; RESP 18; TEMP 98.6
== END 2022-01-14 13:45 | disposition home or self-care (01) ==
LOC: JONCCHEMO 06:46
PROVIDERS: ATTEND Internal Medicine Hematology & Oncology
PROC: 3E013GC Introduction of Other Therapeutic Substance into Subcutaneous Tissue, Percutaneous Approach (ICD-10-PCS; principal; 2022-01-14)
DX: C50.412 Malignant neoplasm of upper-outer quadrant of left female breast (principal); Z76.89 Persons encountering health services in other specified circumstances
CPT/HCPCS: 36415; 80053; 85025; 96372; J9202

== ENCOUNTER 2022-02-10 07:06 | Day surgery (SDC) | payer BC, OTHER ==
[2022-02-10] MEDS ORDERED: LIDOCAINE HCL 1%, 10 MG/ML (20ML VIAL) ID ONE (10:00)
[2022-02-10] MEDS ORDERED: GOSERELIN ACETATE 3.6 MG IMPLANT SYRINGE SQ ONE (10:00)
[2022-02-10] MEDS ORDERED: ACETAMINOPHEN 325 MG TABLET (FP) PO ONE (13:13)
[2022-02-10] MEDS ORDERED: ZOLEDRONIC ACID 4 MG in SODIUM CHLORIDE 100 ML IVPB ONE (13:14)
[2022-02-10 14:23] LABS: BASO % 0.6 % (0-2.0); EOS % 5.7 % (0-4.5); HEMATOCRIT 38.6 % (32.4-45.2); HEMOGLOBIN 12.8 GM/dL (10.7-15.3); LYMPH % 35.4 % (8-40); MCH 29.4 pg (25.7-33.7); MCHC 33.1 g/dl (32.0-36.0); MEAN CELL VOLUME 88.6 fl (80-96); MEAN PLT VOLUME 8.5 fl (7.5-11.1); MONO % 9.4 % (3.8-10.2); NEUT % 48.9 % (42.8-82.8); PLATELET COUNT 219 10^3/uL (134-434); RBC 4.36 M/mm3 (3.60-5.2); RDW 13.5 % (11.6-15.6); WHITE BLOOD COUNT 6.3 K/mm3 (4.0-10.0)
[2022-02-10 14:45] LABS: ALBUMIN 3.7 g/dl (3.4-5.0); BLOOD UREA NITROGEN 9.1 mg/dL (7-18); CALCIUM 9.1 mg/dL (8.5-10.1); MAGNESIUM 2.2 mg/dL (1.8-2.4)
[2022-02-10 14:48] LABS: BILIRUBIN,DIRECT 0.1 mg/dL (0.0-0.2); CREATININE 0.6 mg/dL (0.55-1.3)
[2022-02-10 14:50] LABS: BILIRUBIN,TOTAL 0.6 mg/dL (0.2-1); TOT PROT 7.6 g/dl (6.4-8.2)
[2022-02-10 15:21] VITALS: RESP 18; TEMP 98.7
[2022-02-10] MEDS ORDERED: ACETAMINOPHEN 500 MG TABLET (FP) PO ONE (15:45)
[2022-02-10 17:34] VITALS: BP 124/51; PULSE 85
[2022-02-12 08:09] LABS: CARCINOEMBRYONIC ANTIGEN 2.3 ng/mL (0.0-4.7); FOLLICLE STIMULATING HORMONE 2.7 mIU/mL (.); LUTEINIZING HORMONE < 0.3 mIU/mL (.)
== END 2022-02-10 16:30 | disposition home or self-care (01) ==
LOC: JONCCHEMO 07:06
PROVIDERS: ATTEND Internal Medicine Hematology & Oncology
PROC: 3E01305 Introduction of Other Antineoplastic into Subcutaneous Tissue, Percutaneous Approach (ICD-10-PCS; principal; 2022-02-10)
PROC: 3E033GC Introduction of Other Therapeutic Substance into Peripheral Vein, Percutaneous Approach (ICD-10-PCS; 2022-02-10)
DX: Z51.11 Encounter for antineoplastic chemotherapy (principal); C50.412 Malignant neoplasm of upper-outer quadrant of left female breast
CPT/HCPCS: 36415; 80048; 80076; 82378; 82670; 83001; 83002; 83735; 84703; 85025; 86300; 96365; 96402; J3489; J9202

== ENCOUNTER 2022-03-10 16:00 | Day surgery (SDC) | payer BC, OTHER ==
[~2022-03-10 16:00] MED LIST changes: -LIDOCAINE 1% P/F 10 MG/ML VIAL ID ONE; +LIDOCAINE HCL 1%, 10 MG/ML (20ML VIAL) ID ONE
[2022-03-10 17:00] LABS: BASO % 0.3 % (0-2.0); EOS % 5.2 % (0-4.5); HEMATOCRIT 37.2 % (32.4-45.2); HEMOGLOBIN 12.5 GM/dL (10.7-15.3); LYMPH % 31.7 % (8-40); MCH 29.8 pg (25.7-33.7); MCHC 33.5 g/dl (32.0-36.0); MEAN CELL VOLUME 88.7 fl (80-96); MEAN PLT VOLUME 8.8 fl (7.5-11.1); MONO % 9.8 % (3.8-10.2); PLATELET COUNT 234 10^3/uL (134-434); RDW 13.5 % (11.6-15.6); WHITE BLOOD COUNT 5.4 K/mm3 (4.0-10.0)
[2022-03-10 17:24] LABS: CALCIUM 9.1 mg/dL (8.5-10.1)
[2022-03-10 17:25] LABS: ALBUMIN 3.7 g/dl (3.4-5.0); BLOOD UREA NITROGEN 12.9 mg/dL (7-18); MAGNESIUM 2.2 mg/dL (1.8-2.4)
[2022-03-10 17:27] LABS: BILIRUBIN,DIRECT 0.1 mg/dL (0.0-0.2)
[2022-03-10 17:28] LABS: CREATININE 0.5 mg/dL (0.55-1.3)
[2022-03-10 17:29] LABS: TOT PROT 7.3 g/dl (6.4-8.2)
[2022-03-10 17:30] LABS: BILIRUBIN,TOTAL 0.4 mg/dL (0.2-1)
[2022-03-10 18:41] VITALS: BP 123/48; PULSE 91; RESP 20; TEMP 97.8
[2022-03-12 07:07] LABS: CARCINOEMBRYONIC ANTIGEN 2.5 ng/mL (0.0-4.7); FOLLICLE STIMULATING HORMONE 3.8 mIU/mL (.); LUTEINIZING HORMONE < 0.3 mIU/mL (.)
== END 2022-03-10 17:35 | disposition home or self-care (01) ==
LOC: JONCCHEMO 16:00
PROVIDERS: ATTEND Internal Medicine Hematology & Oncology
DX: Z51.11 Encounter for antineoplastic chemotherapy (principal); C50.412 Malignant neoplasm of upper-outer quadrant of left female breast
CPT/HCPCS: 36415; 80048; 80076; 82378; 82670; 83001; 83002; 83735; 84703; 85025; 86300; 96402; J9202

== ENCOUNTER 2022-04-07 16:10 | Day surgery (SDC) | payer BC, OTHER ==
[2022-04-07 17:44] LABS: BASO % 0.4 % (0-2.0); EOS % 4.9 % (0-4.5); HEMATOCRIT 37.1 % (32.4-45.2); HEMOGLOBIN 12.6 GM/dL (10.7-15.3); LYMPH % 34.9 % (8-40); MCH 30.1 pg (25.7-33.7); MCHC 33.9 g/dl (32.0-36.0); MEAN PLT VOLUME 8.4 fl (7.5-11.1); MONO % 9.8 % (3.8-10.2); PLATELET COUNT 218 10^3/uL (134-434); RBC 4.17 M/mm3 (3.60-5.2); RDW 13.3 % (11.6-15.6); WHITE BLOOD COUNT 5.5 K/mm3 (4.0-10.0)
[2022-04-07 18:02] LABS: ALBUMIN 3.9 g/dl (3.4-5.0); BLOOD UREA NITROGEN 14.6 mg/dL (7-18); CALCIUM 9.7 mg/dL (8.5-10.1)
[2022-04-07 18:05] LABS: BILIRUBIN,DIRECT 0.1 mg/dL (0.0-0.2); CREATININE 0.6 mg/dL (0.55-1.3)
[2022-04-07 18:07] LABS: BILIRUBIN,TOTAL 0.5 mg/dL (0.2-1); TOT PROT 7.4 g/dl (6.4-8.2)
[2022-04-07 18:40] VITALS: BP 115/53; PULSE 89; RESP 18; TEMP 97.8
[2022-04-09 08:12] LABS: LUTEINIZING HORMONE 0.5 mIU/mL (.)
== END 2022-04-07 17:30 | disposition home or self-care (01) ==
LOC: JONCCHEMO 16:10
PROVIDERS: ATTEND Internal Medicine Hematology & Oncology
DX: Z51.11 Encounter for antineoplastic chemotherapy (principal); C50.412 Malignant neoplasm of upper-outer quadrant of left female breast
CPT/HCPCS: 36415; 80048; 80076; 82670; 83001; 83002; 84703; 85025; 96402; J9202

== ENCOUNTER 2022-05-05 12:13 | Day surgery (SDC) | payer BC, OTHER ==
[2022-05-05 12:47] LABS: BASO % 0.2 % (0-2.0); HEMATOCRIT 41.8 % (32.4-45.2); HEMOGLOBIN 13.8 GM/dL (10.7-15.3); LYMPH % 26.5 % (8-40); MCH 29.2 pg (25.7-33.7); MCHC 32.9 g/dl (32.0-36.0); MEAN CELL VOLUME 88.6 fl (80-96); MEAN PLT VOLUME 8.6 fl (7.5-11.1); MONO % 6.4 % (3.8-10.2); NEUT % 64.9 % (42.8-82.8); PLATELET COUNT 256 10^3/uL (134-434); RBC 4.71 M/mm3 (3.60-5.2); RDW 13.6 % (11.6-15.6); WHITE BLOOD COUNT 6.2 K/mm3 (4.0-10.0)
[2022-05-05 13:12] LABS: CALCIUM 9.3 mg/dL (8.5-10.1)
[2022-05-05 13:13] LABS: ALBUMIN 4.3 g/dl (3.4-5.0); BLOOD UREA NITROGEN 10.3 mg/dL (7-18); MAGNESIUM 2.5 mg/dL (1.8-2.4)
[2022-05-05 13:15] LABS: BILIRUBIN,DIRECT 0.2 mg/dL (0.0-0.2)
[2022-05-05 13:16] LABS: CREATININE 0.7 mg/dL (0.55-1.3)
[2022-05-05 13:17] LABS: BILIRUBIN,TOTAL 0.9 mg/dL (0.2-1)
[2022-05-05 18:35] VITALS: BP 105/56; PULSE 93; RESP 16; TEMP 98.3
[2022-05-07 08:06] LABS: CARCINOEMBRYONIC ANTIGEN 1.8 ng/mL (0.0-4.7); FOLLICLE STIMULATING HORMONE 6.3 mIU/mL (.); LUTEINIZING HORMONE < 0.3 mIU/mL (.)
== END 2022-05-05 12:49 | disposition home or self-care (01) ==
LOC: JONCCHEMO 12:13
PROVIDERS: ATTEND Internal Medicine Hematology & Oncology
DX: Z51.11 Encounter for antineoplastic chemotherapy (principal); C50.412 Malignant neoplasm of upper-outer quadrant of left female breast
CPT/HCPCS: 36415; 80048; 80076; 82378; 82670; 83001; 83002; 83735; 85025; 86300; 96402; J9202

== ENCOUNTER 2022-06-02 07:22 | Day surgery (SDC) | payer BC, OTHER ==
[2022-06-02] MEDS ORDERED: GOSERELIN ACETATE 3.6 MG IMPLANT SYRINGE SQ ONE (10:00)
[2022-06-02] MEDS ORDERED: LIDOCAINE HCL 1%, 10 MG/ML (20ML VIAL) ID ONE (10:00)
[2022-06-02 17:31] LABS: BASO % 0.3 % (0-2.0); EOS % 2.1 % (0-4.5); HEMATOCRIT 36.1 % (32.4-45.2); HEMOGLOBIN 11.6 GM/dL (10.7-15.3); LYMPH % 28.9 % (8-40); MCH 28.4 pg (25.7-33.7); MCHC 32.2 g/dl (32.0-36.0); MEAN CELL VOLUME 88.2 fl (80-96); MEAN PLT VOLUME 8.8 fl (7.5-11.1); MONO % 10.8 % (3.8-10.2); NEUT % 57.9 % (42.8-82.8); PLATELET COUNT 272 10^3/uL (134-434); RBC 4.09 M/mm3 (3.60-5.2); WHITE BLOOD COUNT 7.2 K/mm3 (4.0-10.0)
[2022-06-02 17:54] LABS: CALCIUM 9.2 mg/dL (8.5-10.1)
[2022-06-02 17:55] LABS: ALBUMIN 3.5 g/dl (3.4-5.0); BLOOD UREA NITROGEN 11.3 mg/dL (7-18); MAGNESIUM 2.2 mg/dL (1.8-2.4)
[2022-06-02 17:57] LABS: BILIRUBIN,DIRECT 0.1 mg/dL (0.0-0.2); CREATININE 0.6 mg/dL (0.55-1.3)
[2022-06-02 17:59] LABS: BILIRUBIN,TOTAL 0.5 mg/dL (0.2-1); TOT PROT 7.3 g/dl (6.4-8.2)
[2022-06-02 18:34] VITALS: BP 97/44; PULSE 82; RESP 16; TEMP 98.6
[2022-06-04 08:07] LABS: CARCINOEMBRYONIC ANTIGEN 1.9 ng/mL (0.0-4.7); FOLLICLE STIMULATING HORMONE 6.7 mIU/mL (.); LUTEINIZING HORMONE < 0.3 mIU/mL (.)
== END 2022-06-02 17:17 | disposition home or self-care (01) ==
LOC: JONCCHEMO 07:22
PROVIDERS: ATTEND Internal Medicine Hematology & Oncology
DX: Z51.11 Encounter for antineoplastic chemotherapy (principal); C50.412 Malignant neoplasm of upper-outer quadrant of left female breast
CPT/HCPCS: 36415; 80048; 80076; 82378; 82670; 83001; 83002; 83735; 84703; 85025; 86300; 96402; J9202

== ENCOUNTER 2023-08-21 04:38 | Day surgery (SDC) | payer BC, OTHER ==
[2023-08-14 15:59] VITALS: BMI 23.8
[2023-08-21] MEDS ORDERED: PROPOFOL 20 ML ONE (07:24)
[2023-08-21] MEDS ORDERED: MIDAZOLAM HCL 2 MG/2 ML SINGLE DOSE VIAL ONE (07:24)
[2023-08-21] MEDS: ceFAZolin SODIUM 1 GM VIAL IVPB ONE ×2 (09:34)
[2023-08-21] MEDS ORDERED: ceFAZolin SODIUM 1 GM VIAL ONE (09:53)
[2023-08-21] MEDS ORDERED: KETOROLAC TROMETHAMINE 30 MG/1 ML VIAL ONE (09:53)
[2023-08-21] MEDS ORDERED: DEXAMETHASONE SOD PHOSPHATE 4 MG/1 ML VIAL ONE (09:53)
[2023-08-21] MEDS ORDERED: ONDANSETRON 4 MG/2 ML VIAL ONE (09:53)
[2023-08-21] MEDS: LACTATED RINGERS SOLUTION 1,000 ML IV SCH (11:30)
[2023-08-21] MEDS ORDERED: ONDANSETRON 4 MG/2 ML VIAL IVPUSH PRN (11:30)
[2023-08-21 12:35] VITALS: BP 99/54; PULSE 80; TEMP 97
[2023-08-21 12:37] VITALS: RESP 18
== END 2023-08-21 13:04 | disposition home or self-care (01) ==
LOC: JASU-SURG 04:38
PROVIDERS: ATTEND Obstetrics & Gynecology
PROC: 0UB98ZZ Excision of Uterus, Via Natural or Artificial Opening Endoscopic (ICD-10-PCS; principal; 2023-08-21 09:00)
DX: N84.0 Polyp of corpus uteri (principal)
CPT/HCPCS: 88305-TC; 94760